=== PATIENT | male | born 1950 | race Caucasian/White ===

== ENCOUNTER 2016-05-02 20:19 | Emergency (ER) | payer MEDICARE, MEDICAID ==
[~2016-05-02] VITALS: Ht 175.3 cm; Wt 77.1 kg
[~2016-05-02 20:19] MED LIST: ACETAMINOPHEN325 M1 ORAL; COUMADIN7.5 MG ORAL; HEPARIN SO5000 UNIT2 SUBQ; NKM; Vancomycin Hcl MISC
[2016-05-02 20:42] VITALS: BP 124/75
--- NOTE | 2016-05-02 20:50 | Emergency Room Report ---
History of Present Illness General Chief Complaint: Generalized Weakness Source: Patient Present Illness HPI The patient came to be evaluated for dizziness. He states he has felt dizzy for 2 days. He was seen at [facility] yesterday but wasn't complaining about dizziness. They viv blood and didn't given any other treatment. No FORMAN, change in vision, NVD. He doesn't know what diagnosis they gave him. He is also complaining of swelling in both of his legs. This has been for several weeks. He denies fever or redness. No pain. He denies h/o CHF or cirrhosis. No h/o DVT. No calf tenderness. No hemoptysis or chest pain. He walks with a cane because of arthritis in his left leg. No dysuria, change in bowels. No depression. Allergies: Coded Allergies: No Known Allergies (Unverified , 03/08/14) Patient History Past Medical History: see triage record, other - arthritis Social History: Denies: alcohol use, drug use, smoking Social History Narrative homeless - not state where he lives or how he makes ends meet Reviewed Nursing Documentation: PMH: Agreed, PSxH: Agreed Review of Systems All Other Systems: negative except mentioned in HPI Physical Exam Vital Signs Date Time Temp Pulse Resp B/P Pulse Ox O2 Delivery O2 Flow Rate FiO2 05/02/16 20:32 98.6 94 16 140/73 97 Room Air General Appearance: well appearing, no apparent distress, other - dishevelled Head: normocephalic, atraumatic Eyes: bilateral eye PERRL, bilateral eye normal inspection ENT: hearing grossly normal, normal voice, moist mucus membranes Neck: full range of motion, supple Respiratory: no respiratory distress, speaking full sentences Cardiovascular #1: regular rate, rhythm, edema Gastrointestinal: normal inspection, normal bowel sounds, non tender, no mass, no organomegaly Musculoskeletal: gait/station normal - with cane, normal range of motion, no calf tenderness Neurologic: alert, oriented x3, motor strength/tone normal, DTRs symmetric, sensory intact Psychiatric: mood/affect normal Skin: no rash Medical Decision Making Diagnostic Impression: Primary Impression: Dizziness Additional Impression: Pedal edema ER Course Patient with dizziness. Denies weakness. DDx: vertigo, orthostatic issues, labyrinthitis, electrolyte abnormality, pasterior fossa stroke amongst others. Work up with labs, EKG, CXR, CT head. Treatment with IV hydration, zofran, benadryl. Will also give lasix for edema. No Tao's or evidence of new DVT. Labs sig for normal WBC and lytes. Elevated CK and some abnormal LFTs. Patient improved with treatment. Stable for outpatient observation and treatment. Laboratory Tests Test 05/02/16 21:25 05/02/16 22:45 White Blood Count 3.0 K/UL (4.8-10.8) L Red Blood Count 4.46 M/UL (4.70-6.10) L Hemoglobin 14.4 G/DL (14.2-18.0) Hematocrit 41.8 % (42.0-52.0) L Mean Corpuscular Volume 94 FL (80-99) Mean Corpuscular Hemoglobin 32.2 PG (27.0-31.0) H Mean Corpuscular Hemoglobin Concent 34.4 G/DL (32.0-36.0) Red Cell Distribution Width 12.3 % (11.6-14.8) Platelet Count 83 K/UL (150-450) L Mean Platelet Volume 9.3 FL (6.5-10.1) Neutrophils (%) (Auto) 73.9 % (45.0-75.0) Lymphocytes (%) (Auto) 11.7 % (20.0-45.0) L Monocytes (%) (Auto) 12.7 % (1.0-10.0) H Eosinophils (%) (Auto) 0.5 % (0.0-3.0) Basophils (%) (Auto) 1.1 % (0.0-2.0) Prothrombin Time 11.3 SEC (9.30-11.50) Prothrombin Time INR 1.1 (0.9-1.1) Sodium Level 135 mEQ/L (135-145) Potassium Level 3.5 mEQ/L (3.4-4.9) Chloride Level 96 mEQ/L (98-107) L Carbon Dioxide Level 23 mEQ/L (20-30) Anion Gap 16 (5-15) H Blood Urea Nitrogen 16 mg/dL (7-23) Creatinine 1.2 mg/dL (0.7-1.2) Estimate Glomerular Filtration Rate > 60 mL/min (>60) Glucose Level 86 mg/dL (74-106) Calcium Level 8.4 mg/dL (8.6-10.2) L Total Bilirubin 1.3 mg/dL (0.0-1.2) H Direct Bilirubin 0.4 mg/dL (0.1-0.3) H Aspartate Amino Transferase (AST) 68 U/L (5-40) H Alanine Aminotransferase (ALT) 35 U/L (3-41) Alkaline Phosphatase 104 U/L (40-129) Total Creatine Kinase 1302 U/L (38-174) H Troponin I < 0.30 ng/mL (<=0.30) Pro-B-Type Natriuretic Peptide 558 pg/mL (0-125) H Total Protein 6.8 g/dL (6.6-8.7) Albumin 3.9 g/dL (3.5-5.2) Globulin 2.9 g/dL Albumin/Globulin Ratio 1.3 (1.0-2.7) Urine Opiates Screen Negative (NEGATIVE) Urine Barbiturates Screen Negative (NEGATIVE) Phencyclidine (PCP) Screen Negative (NEGATIVE) Urine Amphetamines Screen Negative (NEGATIVE) Urine Benzodiazepines Screen Negative (NEGATIVE) Urine Cocaine Screen Negative (NEGATIVE) Urine Marijuana (THC) Screen Negative (NEGATIVE) EKG Diagnostic Results Rate: normal Rhythm: NSR ST Segments: no acute changes Rhythm Strip Diag. Results EP Interpretation: yes Rhythm: NSR, no PVC's, no ectopy Chest X-Ray Diagnostic Results EP Interpretation: Yes Number of Views: 1 CT/MRI/US Diagnostic Results CT/MRI/US Diagnostic Results : Imaging Test Ordered: head Impression Impression: No acute intracranial bleed, mass effect or edema. Mild atrophy of the brain. 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 Status: improved Disposition: HOME, SELF-CARE Condition: Improved Scripts Ondansetron Odt* (ZOFRAN ODT*) 4 Mg Tab.rapdis 4 MG ORAL Q8H Y for Nausea & Vomiting, #6 TAB 0 Refills Prov: Jovanny West M.D. 05/02/16 Meclizine Hcl* (MECLIZINE*) 25 Mg Tablet 25 MG ORAL THREE TIMES A DAY Y for for dizziness, #12 TAB Prov: Jovanny West M.D. 05/02/16 Jovanny West M.D. May 02, 2016 20:50
[2016-05-02] MEDS ORDERED: DiphenhydrAMINE 50mg/ml Inj IVP ONE (21:15)
[2016-05-02 21:45] LABS: MEAN CORPUSCULAR HEMOGLOBIN 32.2 PG (27.0-31.0); MEAN CORPUSCULAR HGB CONC 34.4 G/DL (32.0-36.0); MEAN CORPUSCULAR VOLUME 94 FL (80-99); MEAN PLATELET VOLUME 9.3 FL (6.5-10.1); PLATELET COUNT 83 K/UL (150-450); RED BLOOD COUNT 4.46 M/UL (4.70-6.10); RED CELL DISTRIBUTION WIDTH 12.3 % (11.6-14.8)
[2016-05-02 21:46] LABS: BASOPHILS % (AUTO) 1.1 % (0.0-2.0); EOSINOPHILS % (AUTO) 0.5 % (0.0-3.0); LYMPHOCYTES % (AUTO) 11.7 % (20.0-45.0); MONOCYTES % (AUTO) 12.7 % (1.0-10.0); NEUTROPHILS % (AUTO) 73.9 % (45.0-75.0)
[2016-05-02 21:56] LABS: INR 1.1 (0.9-1.1); PROTHROMBIN TIME 11.3 SEC (9.30-11.50)
[2016-05-02 22:19] VITALS: BP 122/71
[2016-05-02 22:24] LABS: ALANINE AMINOTRANSFERASE 35 U/L (3-41); ALBUMIN/GLOBULIN RATIO 1.3 (1.0-2.7); ANION GAP 16 (5-15); ASPARTATE AMINO TRANSFERASE 68 U/L (5-40); CALCIUM 8.4 mg/dL (8.6-10.2); CARBON DIOXIDE 23 mEQ/L (20-30); CHLORIDE 96 mEQ/L (98-107); CREATININE 1.2 mg/dL (0.7-1.2); GLOMERULAR FILTRATION RATE > 60 mL/min (>60); HEMOLYSIS 8; POTASSIUM 3.5 mEQ/L (3.4-4.9); SODIUM 135 mEQ/L (135-145); TOTAL PROTEIN 6.8 g/dL (6.6-8.7); TROPONIN I < 0.30 ng/mL (<=0.30)
[2016-05-02 22:44] LABS: BILIRUBIN,DIRECT 0.4 mg/dL (0.1-0.3)
[2016-05-02] MEDS ORDERED: ZOFRAN ODT4 MG ORAL (23:12)
[2016-05-02] MEDS ORDERED: MECLIZINE HCL25 MG ORAL (23:12)
[2016-05-02 23:20] VITALS: BP 109/68
[2016-05-03] VITALS: BP 109/68
--- NOTE | 2016-05-03 11:35 | Diagnostic Imaging Report ---
Indication: Chest Pain Comparison: None A single view chest radiograph was obtained. Findings: No definite infiltrate or pulmonary vascular congestion identified. Pacemaker noted on the right. The heart is enlarged. The aorta is mildly enlarged consistent with atherosclerotic vascular disease. The bones are osteopenic. Impression: No acute disease
--- NOTE | 2016-05-06 09:39 | Diagnostic Imaging Report ---
Indication: Dizziness Technique: Contiguous 5 mm thick transaxial imaging of the head obtained in a Siemens Sensation [address] scanner. Soft tissue and bone windows generated. Total Dose length Product (DLP): [address] Dose Index Volume (CTDIvol): 70.38 mGy Comparison: none Findings: There is mild prominence of the ventricles, basal cisterns, and cerebral sulci consistent with atrophy. Mild, nonspecific, white matter hypoattenuation is noted throughout the brain consistent with chronic small vessel disease. Small cystic punctate focus noted in the right caudate. There is no midline shift, edema, acute hemorrhage, mass effect, or abnormal extra-axial fluid collections. Bones and extra osseous soft tissues are unremarkable. Impression: No acute intracranial bleed, mass effect or edema. Mild atrophy of the brain. 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 Dr. Price has communicated the preliminary results to the Emergency Department. There are no significant discrepancies. The CT scanner at [facility] is accredited by the [employer] and the scans are performed using protocols designed to limit radiation exposure to as low as reasonably achievable to attain images of sufficient resolution adequate for diagnostic evaluation.
--- NOTE | 2016-06-09 03:14 | Cardiology Report ---
APPROVED REPORT EKG Measurement Heart [id number] Atrial pacing Moderate voltage criteria for LVH, may be normal variant Abnormal ECG
== END 2016-05-03 00:01 | disposition home or self-care (01) ==
LOC: EMR 21:41
DX: R42 Dizziness and giddiness (principal); R60.0 Localized edema
CPT/HCPCS: 36415; 70450; 71010; 80053; 80300; 82248; 82550; 83880; 84484; 85025; 85610; 93005; 96374; 96375; 99284; J1200; J1940; J2405

== ENCOUNTER 2016-05-29 16:18 | Inpatient (IN) | payer MEDICARE, MEDICAID ==
[~2016-05-29] VITALS: Ht 175.3 cm; Wt 74.8 kg
[~2016-05-29 16:18] MED LIST changes: +MECLIZINE HCL25 MG ORAL; +ZOFRAN ODT4 MG ORAL
[2016-05-29] MEDS ORDERED: NKM (16:33)
[2016-05-29] MEDS ORDERED: Vancomycin 1 GM in NS 275 ML IV ONE (17:00)
[2016-05-29] MEDS ORDERED: NS 1000ml 2,200 ML IVLG ONE (17:00)
[2016-05-29 17:05] VITALS: BP 126/77
[2016-05-29 18:05] LABS: BASOPHILS % (AUTO) 1.2 % (0.0-2.0); LYMPHOCYTES % (AUTO) 29.1 % (20.0-45.0); MEAN CORPUSCULAR HEMOGLOBIN 30.8 PG (27.0-31.0); MEAN CORPUSCULAR HGB CONC 32.9 G/DL (32.0-36.0); MEAN CORPUSCULAR VOLUME 94 FL (80-99); MEAN PLATELET VOLUME 8.3 FL (6.5-10.1); MONOCYTES % (AUTO) 9.4 % (1.0-10.0); NEUTROPHILS % (AUTO) 60.2 % (45.0-75.0); PLATELET COUNT 160 K/UL (150-450); RED BLOOD COUNT 4.43 M/UL (4.70-6.10); RED CELL DISTRIBUTION WIDTH 12.3 % (11.6-14.8); WHITE BLOOD COUNT 5.4 K/UL (4.8-10.8)
[2016-05-29] MEDS ORDERED: Vancomycin 1gm inj IVPB ONE (18:07)
[2016-05-29 18:24] LABS: ALANINE AMINOTRANSFERASE 20 U/L (3-41); ANION GAP 14 (5-15); ASPARTATE AMINO TRANSFERASE 30 U/L (5-40); CALCIUM 8.6 mg/dL (8.6-10.2); CARBON DIOXIDE 25 mEQ/L (20-30); CHLORIDE 104 mEQ/L (98-107); CREATININE 1.1 mg/dL (0.7-1.2); GLOMERULAR FILTRATION RATE > 60 mL/min (>60); HEMOLYSIS 5; POTASSIUM 3.6 mEQ/L (3.4-4.9); SODIUM 143 mEQ/L (135-145); TOTAL PROTEIN 6.7 g/dL (6.6-8.7)
[2016-05-29 18:25] VITALS: BP 114/69
[2016-05-29 18:34] LABS: CKMB 7.5 ng/mL (< 6.7)
[2016-05-29 18:47] LABS: APPEARANCE,URINE CLEAR; KETONES,URINE NEGATIVE (NEGATIVE); LEUKOCYTE ESTERASE ,URINE NEGATIVE (NEGATIVE); NITRITE,URINE NEGATIVE (NEGATIVE); PH,URINE 6 (4.5-8.0); PROTEIN,URINE NEGATIVE (NEGATIVE); UROBILINOGEN,URINE NORMAL MG/DL (0.0-1.0)
[2016-05-29 18:54] LABS: BILIRUBIN,DIRECT 0.5 mg/dL (0.1-0.3)
--- NOTE | 2016-05-29 19:17 | Emergency Room Report ---
History of Present Illness General Chief Complaint: Edema Source: Patient Present Illness HPI She states that he has had bilateral lower she may the swelling and redness that is rapidly progressed over the past week. He states that he has had similar symptoms in the past and had to take antibiotics. He's also had a history of blood clots in his legs. He denies fever or chills. He denies nausea or vomiting. Denies chest pain or shortness of breath. He has no other complaints. Allergies: Coded Allergies: No Known Allergies (Unverified , 03/08/14) Patient History Past Medical History: see triage record, old chart reviewed, other - DVT Social History: Reports: smoking Reviewed Nursing Documentation: PMH: Agreed, PSxH: Agreed Review of Systems All Other Systems: negative except mentioned in HPI Physical Exam Vital Signs Date Time Temp Pulse Resp B/P Pulse Ox O2 Delivery O2 Flow Rate FiO2 05/29/16 16:27 97.7 96 16 137/94 97 Room Air Sp02 EP Interpretation: reviewed, normal General Appearance: no apparent distress, alert, GCS 15, non-toxic Head: normocephalic, atraumatic Eyes: bilateral eye PERRL, bilateral eye normal inspection ENT: hearing grossly normal, normal pharynx, no angioedema, normal voice, other - Poor dentition Neck: full range of motion, supple/symm/no masses Respiratory: chest non-tender, lungs clear, normal breath sounds, speaking full sentences Cardiovascular #1: regular rate, rhythm, no edema Gastrointestinal: normal bowel sounds, non tender, soft, non-distended, no guarding, no rebound Rectal: deferred Musculoskeletal: back normal, normal range of motion, swelling - BLE edema and erythema/warmth to mid [place]gara. Neurologic: alert, oriented x3, responsive, motor strength/tone normal, sensory intact, speech normal Psychiatric: judgement/insight normal, memory normal, mood/affect normal, no suicidal/homicidal ideation Skin: well hydrated, other - See MSK exam Medical Decision Making Diagnostic Impression: Primary Impression: Cellulitis ER Course Patient has bilateral lower extremity cellulitis. Patient is well-appearing without systemic symptoms. Laboratory workup is noncontributory. Bilateral lower extremity ultrasound shows no evidence of DVT. The patient was given IV antibiotics. This patient has a severe bilateral lower extremity cellulitis with severe edema. Patient will need to be admitted for IV antibiotics and further monitoring. Labs Test 2/14/17 17:19 05/29/16 18:05 White Blood Count 5.4 K/UL (4.8-10.8) Red Blood Count 4.43 M/UL (4.70-6.10) Hemoglobin 13.6 G/DL (14.2-18.0) Hematocrit 41.4 % (42.0-52.0) Mean Corpuscular Volume 94 FL (80-99) Mean Corpuscular Hemoglobin 30.8 PG (27.0-31.0) Mean Corpuscular Hemoglobin Concent 32.9 G/DL (32.0-36.0) Red Cell Distribution Width 12.3 % (11.6-14.8) Platelet Count 160 K/UL (150-450) Mean Platelet Volume 8.3 FL (6.5-10.1) Neutrophils (%) (Auto) 60.2 % (45.0-75.0) Lymphocytes (%) (Auto) 29.1 % (20.0-45.0) Monocytes (%) (Auto) 9.4 % (1.0-10.0) Eosinophils (%) (Auto) 0.0 % (0.0-3.0) Basophils (%) (Auto) 1.2 % (0.0-2.0) Sodium Level 143 mEQ/L (135-145) Potassium Level 3.6 mEQ/L (3.4-4.9) Chloride Level 104 mEQ/L (98-107) Carbon Dioxide Level 25 mEQ/L (20-30) Anion Gap 14 (5-15) Blood Urea Nitrogen 15 mg/dL (7-23) Creatinine 1.1 mg/dL (0.7-1.2) Estimat Glomerular Filtration Rate > 60 mL/min (>60) Glucose Level 95 mg/dL (74-106) Lactic Acid Level 1.00 mmol/L (0.66-2.22) Calcium Level 8.6 mg/dL (8.6-10.2) Total Bilirubin 1.4 mg/dL (0.0-1.2) Aspartate Amino Transf (AST/SGOT) 30 U/L (5-40) Alanine Aminotransferase (ALT/SGPT) 20 U/L (3-41) Alkaline Phosphatase 112 U/L (40-129) Total Creatine Kinase 297 U/L (38-174) Creatine Kinase MB 7.5 ng/mL (< 6.7) Creatine Kinase MB Relative Index 2.5 Total Protein 6.7 g/dL (6.6-8.7) Albumin 3.5 g/dL (3.5-5.2) Globulin 3.2 g/dL Albumin/Globulin Ratio 1.0 (1.0-2.7) Urine Color Yellow Urine Appearance Clear Urine pH 6 (4.5-8.0) Urine Specific [place] 1.015 (1.005-1.035) Urine Protein Negative (NEGATIVE) Urine Glucose (UA) Negative (NEGATIVE) Urine Ketones Negative (NEGATIVE) Urine Occult Blood 3+ (NEGATIVE) Urine Nitrite Negative (NEGATIVE) Urine Bilirubin Negative (NEGATIVE) Urine Urobilinogen Normal MG/DL (0.0-1.0) Urine Leukocyte Esterase Negative (NEGATIVE) EKG Diagnostic Results Rate: normal Rhythm: NSR ST Segments: no acute changes Other Impression 1st degree AV block Rhythm Strip Diag. Results EP Interpretation: yes Rate: 70's Rhythm: NSR, no PVC's, no ectopy CT/MRI/US Diagnostic Results CT/MRI/US Diagnostic Results : Imaging Test Ordered: BLE US Impression No e/o DVT Last Vital Signs Date Time Temp Pulse Resp B/P Pulse Ox O2 Delivery O2 Flow Rate FiO2 05/29/16 18:25 69 12 114/69 94 Room Air 05/29/16 16:27 97.7 Disposition: ADMITTED INPATIENT Condition: Stable Referrals: SCOTT GUAMAN (PCP) JOSHUA BENAVIDEZ D.O. May 29, 2016 19:17
[2016-05-29 20:05] LABS: BACTERIA,URINE OCCASIONAL /HPF; WBC,URINE 0-2 /HPF (0 - 0)
[2016-05-29 20:30] VITALS: BP 125/87
[2016-05-29 21:13] VITALS: BP 125/87
[2016-05-29] MEDS ORDERED: Mylanta II UD 30ml ORAL PRN (21:15)
[2016-05-29] MEDS ORDERED: Miralax 17gm pkt ORAL PRN (21:15)
[2016-05-29] MEDS ORDERED: LORazepam Inj 2mg/ml 1ml IV PRN (21:15)
[2016-05-29] MEDS ORDERED: Morphine Sulfate 2mg/ml Inj IVP PRN (21:15)
[2016-05-29] MEDS ORDERED: Zolpidem 5mg tab ORAL PRN (21:15)
[2016-05-29] MEDS: Cefepime HCl 1 GM in D5W 55 ML IV SCH (22:49)
[2016-05-29] MEDS: Heparin 5000 units/ml inj SUBQ SCH (22:50)
[2016-05-30] VITALS: BP 139/86
[2016-05-30] MEDS ORDERED: Vancomycin 1gm inj IVPB ONE (01:25)
[2016-05-30 04:00] VITALS: BP 144/82
[2016-05-30] MEDS: Cefepime HCl 1 GM in D5W 55 ML IV SCH ×3 (05:05→21:28)
[2016-05-30] MEDS: Vancomycin 1gm in D5W 275ml IVPB SCH ×2 (05:41→18:24)
[2016-05-30 08:18] VITALS: BP 119/79
[2016-05-30] MEDS: Heparin 5000 units/ml inj SUBQ SCH ×2 (09:41→21:00)
[2016-05-30 11:06] LABS: BASOPHILS % (AUTO) 1.1 % (0.0-2.0); EOSINOPHILS % (AUTO) 0.2 % (0.0-3.0); MEAN CORPUSCULAR HEMOGLOBIN 31.3 PG (27.0-31.0); MEAN CORPUSCULAR HGB CONC 34.3 G/DL (32.0-36.0); MEAN CORPUSCULAR VOLUME 91 FL (80-99); MEAN PLATELET VOLUME 8.4 FL (6.5-10.1); MONOCYTES % (AUTO) 9.7 % (1.0-10.0); NEUTROPHILS % (AUTO) 58.1 % (45.0-75.0); PLATELET COUNT 135 K/UL (150-450); RED BLOOD COUNT 4.45 M/UL (4.70-6.10); RED CELL DISTRIBUTION WIDTH 12.2 % (11.6-14.8); WHITE BLOOD COUNT 3.9 K/UL (4.8-10.8)
[2016-05-30 11:20] LABS: HEMOGLOBIN A1C 5.1 % (< 6.0)
[2016-05-30 11:26] LABS: ALANINE AMINOTRANSFERASE 16 U/L (3-41); ALBUMIN/GLOBULIN RATIO 1.4 (1.0-2.7); ANION GAP 14 (5-15); ASPARTATE AMINO TRANSFERASE 26 U/L (5-40); CALCIUM 8.4 mg/dL (8.6-10.2); CARBON DIOXIDE 24 mEQ/L (20-30); CHLORIDE 102 mEQ/L (98-107); CHOLESTEROL 182 mg/dL (< 200); CHOLESTEROL/HDL RATIO 5.4 (3.3-4.4); GLOMERULAR FILTRATION RATE > 60 mL/min (>60); HEMOLYSIS 5; LDL CHOLESTEROL (CALC.) 122 mg/dL (60-99); POTASSIUM 3.5 mEQ/L (3.4-4.9); SODIUM 140 mEQ/L (135-145); TOTAL PROTEIN 5.9 g/dL (6.6-8.7)
[2016-05-30 11:47] LABS: BILIRUBIN,DIRECT 0.5 mg/dL (0.1-0.3)
[2016-05-30 11:52] VITALS: BP 113/69
[2016-05-30 16:00] VITALS: BP 131/84
--- NOTE | 2016-05-30 17:32 | Consultation ---
Consult Note Consult Note ID CONSULT: Justin# [id number] Assessment/Plan ASSESSMENT: 66 y/o male with: // BLE cellulitis - doppler(-) DVT // Afebrile without leukocytosis // Isolated total bilirubin elevation // NKDA // Full Code PLAN: - continue empiric IV vancomycin, cefepime d# 2 / 10, transition to PO once clinically improved - f/u cultures - monitor CBC, temperatures - monitor BMP - BLE elevation, compression Thanks! Will follow BRIAN CLARK May 30, 2016 17:32
--- NOTE | 2016-05-30 17:43 | History and Physical ---
History of Present Illness General Date patient seen: May 30, 2016 Reason for Hospitalization: Edema Present Illness HPI 66 year old male with hx of DVT and cellulitis of lower extremities, presented to [facility] with CC off bilateral lower leg swelling and redness that is rapidly progressed over the past week. He states that he has had similar symptoms in the past and had to take antibiotics. He denies fever or chills, nausea or vomiting, chest pain or shortness of breath. Allergies: Coded Allergies: No Known Allergies (Unverified , 03/08/14) Medication History Scheduled Heparin Sod (Porcine) (Heparin Sodium*), 5,000 UNITS SUBQ EVERY 12 HOURS No Known Medications* (NKM - No Known Medications*), 0 ., (Reported) Scheduled PRN Acetaminophen* (Acetaminophen*), 650 MG ORAL Q4H PRN for Mild Pain (Pain Scale 1 -3) Meclizine Hcl* (Meclizine*), 25 MG ORAL THREE TIMES A DAY PRN for for dizziness Ondansetron Odt* (Zofran Odt*), 4 MG ORAL Q8H PRN for Nausea & Vomiting [Vancomycin Hcl], 1 EA MISC DAILY PRN for Per rx protocol Patient History Healthcare decision maker Resuscitation status Full Code Advanced Directive on File Past Medical/Surgical History Past Medical/Surgical History: (1) Cellulitis (2) Pedal edema Review of Systems Skin: Reports: dryness All Other Systems: negative except mentioned in HPI Physical Exam Lines, tubes and drains: peripheral, central line HEENT: normocephalic, atraumatic Neck: non-tender, normal alignment Respiratory/Chest: chest wall non-tender, lungs clear Cardiovascular/Chest: normal peripheral pulses, normal rate Abdomen: normal bowel sounds, non tender Genitourinary/Rectal: normal genital exam, normal rectal exam Last 24 Hour Vital Signs Date Time Temp Pulse Resp B/P Pulse Ox O2 Delivery O2 Flow Rate FiO2 05/30/16 11:52 97.5 70 20 113/69 95 Room Air 05/30/16 08:18 97.3 70 19 119/79 95 Room Air 05/30/16 04:00 98.0 20 144/82 96 Room Air 05/30/16 00:00 97.9 81 16 139/86 95 Room Air 05/29/16 21:13 97.5 80 20 125/87 97 Room Air 05/29/16 20:30 97.5 80 20 125/87 97 Room Air 05/29/16 20:15 63 15 121/73 94 Room Air 05/29/16 18:25 69 12 114/69 94 Room Air Intake and Output 05/29/16 05/30/16 19:00 07:00 Intake Total 2000 ml 628.708 ml Balance 2000 ml 628.708 ml Intake Oral 60 ml IV Total 2000 ml 568.708 ml # Voids 1 3 # Bowel Movements 1 Laboratory Tests Test 05/29/16 18:05 05/30/16 09:30 Urine Color Yellow Urine Appearance Clear Urine pH 6 (4.5-8.0) Urine Specific [place] 1.015 (1.005-1.035) Urine Protein Negative (NEGATIVE) Urine Glucose (UA) Negative (NEGATIVE) Urine Ketones Negative (NEGATIVE) Urine Occult Blood 3+ (NEGATIVE) H Urine Nitrite Negative (NEGATIVE) Urine Bilirubin Negative (NEGATIVE) Urine Urobilinogen Normal MG/DL (0.0-1.0) Urine Leukocyte Esterase Negative (NEGATIVE) Urine RBC 10-15 /HPF (0 - 0) H Urine WBC 0-2 /HPF (0 - 0) Urine Squamous Epithelial Cells None /LPF (NONE/OCC) Urine Bacteria Occasional /HPF (NONE) White Blood Count 3.9 K/UL (4.8-10.8) L Red Blood Count 4.45 M/UL (4.70-6.10) L Hemoglobin 13.9 G/DL (14.2-18.0) L Hematocrit 40.5 % (42.0-52.0) L Mean Corpuscular Volume 91 FL (80-99) Mean Corpuscular Hemoglobin 31.3 PG (27.0-31.0) H Mean Corpuscular Hemoglobin Concent 34.3 G/DL (32.0-36.0) Red Cell Distribution Width 12.2 % (11.6-14.8) Platelet Count 135 K/UL (150-450) L Mean Platelet Volume 8.4 FL (6.5-10.1) Neutrophils (%) (Auto) 58.1 % (45.0-75.0) Lymphocytes (%) (Auto) 31.0 % (20.0-45.0) Monocytes (%) (Auto) 9.7 % (1.0-10.0) Eosinophils (%) (Auto) 0.2 % (0.0-3.0) Basophils (%) (Auto) 1.1 % (0.0-2.0) Sodium Level 140 mEQ/L (135-145) Potassium Level 3.5 mEQ/L (3.4-4.9) Chloride Level 102 mEQ/L (98-107) Carbon Dioxide Level 24 mEQ/L (20-30) Anion Gap 14 (5-15) Blood Urea Nitrogen 13 mg/dL (7-23) Creatinine 1.0 mg/dL (0.7-1.2) Estimat Glomerular Filtration Rate > 60 mL/min (>60) Glucose Level 93 mg/dL (74-106) Hemoglobin A1c 5.1 % (< 6.0) Calcium Level 8.4 mg/dL (8.6-10.2) L Total Bilirubin 1.5 mg/dL (0.0-1.2) H Direct Bilirubin 0.5 mg/dL (0.1-0.3) H Aspartate Amino Transf (AST/SGOT) 26 U/L (5-40) Alanine Aminotransferase (ALT/SGPT) 16 U/L (3-41) Alkaline Phosphatase 106 U/L (40-129) Total Protein 5.9 g/dL (6.6-8.7) L Albumin 3.5 g/dL (3.5-5.2) Globulin 2.4 g/dL Albumin/Globulin Ratio 1.4 (1.0-2.7) Triglycerides Level 129 mg/dL (< 150) Cholesterol Level 182 mg/dL (< 200) LDL Cholesterol 122 mg/dL (60-99) H HDL Cholesterol 34 mg/dL (> 60) Cholesterol/HDL Ratio 5.4 (3.3-4.4) H Thyroid Stimulating Hormone (TSH) 1.850 uIU/mL (0.300-4.500) Height (Feet): 5 Height (Inches): 9.00 Weight (Pounds): 165 Medications Current Medications Medications (Trade) Dose Ordered Sig/Berna Route PRN Reason Start Time Stop Time Status Last Admin Dose Admin Acetaminophen (Tylenol) 650 mg Q4H PRN ORAL fever 05/29/16 21:15 06/28/16 21:14 Al Hydroxide/Mg Hydroxide (Mylanta II) 30 ml Q6H PRN ORAL dyspepsia 05/29/16 21:15 06/28/16 21:14 Cefepime HCl 1 gm/ Dextrose 55 ml @ 110 mls/hr EVERY 8 HOURS IV 05/29/16 23:00 06/05/16 22:59 05/30/16 13:36 Dextrose (Dextrose 50%) STAT PRN IV Hypoglycemia 05/29/16 21:15 06/28/16 21:14 Heparin Sodium (Porcine) (Heparin 5000 units/ml) 5,000 units EVERY 12 HOURS SUBQ 05/29/16 22:00 06/28/16 21:59 05/30/16 09:41 Lorazepam (Ativan 2mg/ml 1ml) 0.5 mg Q4H PRN IV For Anxiety 05/29/16 21:15 06/05/16 21:14 Morphine Sulfate (Morphine Sulfate) 1 mg Q4H PRN IVP For Pain 05/29/16 21:15 06/05/16 21:14 Ondansetron HCl (Zofran) 4 mg Q6H PRN IVP Nausea & Vomiting 05/29/16 21:15 06/28/16 21:14 Polyethylene Glycol (Miralax) 17 gm HSPRN PRN ORAL Constipation 05/29/16 21:15 06/28/16 21:14 Vancomycin HCl 1 ea 1 ea DAILY PRN MISC Per rx protocol 05/29/16 21:15 06/28/16 21:14 Vancomycin HCl/ Dextrose (Vancomycin/D5W) 275 ml @ 183.708 mls/hr Q12H IVPB 05/30/16 06:00 06/04/16 05:59 05/30/16 05:41 Zolpidem Tartrate (Ambien) 5 mg HSPRN PRN ORAL Insomnia 05/29/16 21:15 06/28/16 21:14 Assessment/Plan Problem List: (1) Cellulitis ICD Codes: L03.90 - Cellulitis, unspecified SNOMED: 002932701 (2) Pedal edema ICD Codes: R60.0 - Localized edema SNOMED: 990003940 Assessment/Plan IV antibiotics blood cultures venous doppler of legs ID consult ESTEE RODRIGUEZ May 30, 2016 17:43
[2016-05-30 20:00] VITALS: BP 136/88
--- NOTE | 2016-05-30 20:59 | Consultation ---
DATE OF CONSULTATION: 05/30/2016 INFECTIOUS DISEASES CONSULTATION REFERRING PHYSICIAN: Criselda Morejon M.D. REASON FOR CONSULTATION: Cellulitis. HISTORY OF PRESENT ILLNESS: This is a 58-year-old male admitted on 05/29/2016 with bilateral lower extremity edema, erythema and warmth. He is afebrile without leukocytosis. He has evidence of cellulitis. His Dopplers are negative for DVT. Blood cultures are pending. He has been started on empiric IV vancomycin and cefepime. ID now consulted to assist in management. PAST MEDICAL HISTORY: 1. History of DVT. 2. History of lacunar infarct of the caudate. PAST SURGICAL HISTORY: None. ALLERGIES: No known drug allergies. MEDICATIONS: 1. Vancomycin day #2. 2. Cefepime day #2. 3. Subcutaneous heparin. FAMILY HISTORY: Noncontributory. SOCIAL HISTORY: No active tobacco, alcohol, or illicit drug abuse. REVIEW OF SYSTEMS: As per history of present illness. Ten systems reviewed. All pertinent positives and negatives noted. PHYSICAL EXAMINATION: VITAL SIGNS: Maximum temperature 98 degrees, blood pressure 113/69, heart rate in the 70s, respiratory rate 20, and saturating 95% on room air. GENERAL: No apparent distress. Nontoxic appearing. CARDIOVASCULAR: Regular rate and rhythm. No murmurs. PULMONARY: Clear to auscultation bilaterally. ABDOMINAL: Bowel sounds present. Soft, nondistended, and nontender. EXTREMITIES: Bilateral lower extremity erythema, edema, and warmth. LABORATORY DATA: White blood cell count 8.9, hemoglobin 13.9, and platelets 135,000. Sodium 140, potassium 3.5, chloride 102, bicarbonate 24, BUN 13, and creatinine 1. Lactic acid is 1. AST 26, ALT 16, and alkaline phosphatase 106. Total bilirubin is 1.5. Albumin is 3.5. Creatine kinase is 297. Urinalysis negative. MICROBIOLOGY: On 05/29/2016, blood culture pending. IMAGING: On 05/30/2016, bilateral lower extremity Doppler ultrasound negative for DVT. ASSESSMENT: 1. Bilateral lower extremity cellulitis. A Doppler ultrasound is negative for deep vein thrombosis. 2. Afebrile without leukocytosis. 3. Isolated total bilirubin elevation. 4. No known drug allergies. 5. Full Code. PLAN: 1. Continue empiric IV vancomycin and cefepime day #2 of 7 to 10. 2. Transition to oral alternative once clinically improved. 3. Follow up cultures. 4. Monitor CBC and temperatures. 5. Monitor BMP. 6. Bilateral lower extremity elevation and compression. Thank you. We will follow. Kishore Em M.D. DR: CHRISTIAN JOB#: [id number] CC: Criselda Morejon M.D.; Fax#: [phone] Nieves M.D; Fax#: [phone]
[2016-05-31] VITALS: BP_SYST 131; BP_DIAS 89; BP_DIAS 97
[2016-05-31 04:00] VITALS: BP 92/53
[2016-05-31] MEDS: Cefepime HCl 1 GM in D5W 55 ML IV SCH ×3 (05:25→22:09)
[2016-05-31] MEDS: Vancomycin 1gm in D5W 275ml IVPB SCH ×2 (06:05→18:14)
[2016-05-31 07:53] VITALS: BP 109/78
[2016-05-31] MEDS: Heparin 5000 units/ml inj SUBQ SCH ×2 (09:00→21:00)
[2016-05-31 11:26] VITALS: BP 123/86
--- NOTE | 2016-05-31 15:33 | Infectious Diseases Prog Note ---
Assessment/Plan Assessment/Plan ASSESSMENT: 66 y/o male with: // BLE cellulitis - improved - a/vdoppler(-) DVT, PAD - failed PO ABX ( however did not take regularly ) // Afebrile without leukocytosis // Isolated total bilirubin elevation // NKDA // Full Code PLAN: - continue empiric IV vancomycin, cefepime d# / , may be able to transition to PO keflex as early as tomorrow - f/u cultures - monitor CBC, temperatures - monitor BMP - BLE elevation, compression Subjective Allergies: Coded Allergies: No Known Allergies (Unverified , 03/08/14) Subjective remains afebrile. no new complaint Objective Vital Signs Last 24 Hour Vital Signs Date Time Temp Pulse Resp B/P Pulse Ox O2 Delivery O2 Flow Rate FiO2 05/31/16 11:26 97.5 84 19 123/86 96 Room Air 05/31/16 07:53 97.6 85 19 109/78 96 Room Air 05/31/16 04:00 96.8 80 20 92/53 96 Room Air 05/31/16 00:00 97.9 86 20 131/89 97 Room Air 05/30/16 20:00 97.9 82 16 136/88 99 Room Air 05/30/16 16:00 96.9 72 17 131/84 98 Room Air Height (Feet): 5 Height (Inches): 9.00 Weight (Pounds): 165 General Appearance: no acute distress Respiratory/Chest: no respiratory distress Cardiovascular: normal rate, regular rhythm Abdomen: normal bowel sounds, soft, non tender, non distended Extremities: other - BLE erythema, edema, warmth Microbiology Date/Time Source Procedure Growth Status 05/29/16 17:19 Blood Blood Culture - Preliminary NO GROWTH AFTER 24 HOURS Resulted 05/29/16 17:09 Blood Blood Culture - Preliminary NO GROWTH AFTER 24 HOURS Resulted Current Medications Medications (Trade) Dose Ordered Sig/Berna Route PRN Reason Start Time Stop Time Status Last Admin Dose Admin Acetaminophen (Tylenol) 650 mg Q4H PRN ORAL fever 05/29/16 21:15 06/28/16 21:14 Al Hydroxide/Mg Hydroxide (Mylanta II) 30 ml Q6H PRN ORAL dyspepsia 05/29/16 21:15 06/28/16 21:14 Cefepime HCl 1 gm/ Dextrose 55 ml @ 110 mls/hr EVERY 8 HOURS IV 05/29/16 23:00 06/05/16 22:59 05/31/16 14:27 Dextrose (Dextrose 50%) STAT PRN IV Hypoglycemia 05/29/16 21:15 06/28/16 21:14 Heparin Sodium (Porcine) (Heparin 5000 units/ml) 5,000 units EVERY 12 HOURS SUBQ 05/29/16 22:00 06/28/16 21:59 05/30/16 09:41 Lorazepam (Ativan 2mg/ml 1ml) 0.5 mg Q4H PRN IV For Anxiety 05/29/16 21:15 06/05/16 21:14 Morphine Sulfate (Morphine Sulfate) 1 mg Q4H PRN IVP For Pain 05/29/16 21:15 06/05/16 21:14 Ondansetron HCl (Zofran) 4 mg Q6H PRN IVP Nausea & Vomiting 05/29/16 21:15 06/28/16 21:14 Polyethylene Glycol (Miralax) 17 gm HSPRN PRN ORAL Constipation 05/29/16 21:15 06/28/16 21:14 Vancomycin HCl 1 ea 1 ea DAILY PRN MISC Per rx protocol 05/29/16 21:15 06/28/16 21:14 Vancomycin HCl/ Dextrose (Vancomycin/D5W) 275 ml @ 183.708 mls/hr Q12H IVPB 05/30/16 06:00 06/04/16 05:59 05/31/16 06:05 Zolpidem Tartrate (Ambien) 5 mg HSPRN PRN ORAL Insomnia 05/29/16 21:15 06/28/16 21:14 BRIAN CLARK May 31, 2016 15:32
[2016-05-31 16:00] VITALS: BP 121/82
[2016-05-31] MEDS ORDERED: Tubing IV Secondary IV ONE (17:38)
[2016-05-31 20:00] VITALS: BP 134/82
--- NOTE | 2016-05-31 21:30 | Pulmonology Progress Note ---
Assessment/Plan Problems: (1) Cellulitis (2) Pedal edema Assessment/Plan improving continue antibiotics check electrolytes, and cbc. Subjective ROS Limited/Unobtainable: No Allergies: Coded Allergies: No Known Allergies (Unverified , 03/08/14) Objective Last 24 Hour Vital Signs Date Time Temp Pulse Resp B/P Pulse Ox O2 Delivery O2 Flow Rate FiO2 05/31/16 16:00 97.5 82 18 121/82 97 Room Air 05/31/16 11:26 97.5 84 19 123/86 96 Room Air 05/31/16 07:53 97.6 85 19 109/78 96 Room Air 05/31/16 04:00 96.8 80 20 92/53 96 Room Air 05/31/16 00:00 97.9 86 20 131/89 97 Room Air Intake and Output 05/30/16 05/31/16 19:00 07:00 Intake Total 560 ml 290 ml Output Total 700 ml 750 ml Balance -140 ml -460 ml Intake Oral 560 ml 180 ml IV Total 110 ml Output Urine Total 700 ml 750 ml # Voids 2 Objective General Appearance: WD/WN HEENT: normocephalic, atraumatic Respiratory/Chest: chest wall non-tender, lungs clear Cardiovascular: normal peripheral pulses, normal rate, regular rhythm Abdomen: normal bowel sounds, soft, non tender, no organomegaly Genitourinary: normal external genitalia Extremities: no cyanosis, no clubbing Skin: rash in both legs blow knee Neurologic/Psychiatric: publicity person II-XII grossly normal Microbiology Date/Time Source Procedure Growth Status 05/29/16 17:19 Blood Blood Culture - Preliminary NO GROWTH AFTER 24 HOURS Resulted 05/29/16 17:09 Blood Blood Culture - Preliminary NO GROWTH AFTER 24 HOURS Resulted Laboratory Tests 05/31/16 17:40: Vancomycin Level Trough 16.5H Current Medications Medications (Trade) Dose Ordered Sig/Berna Route PRN Reason Start Time Stop Time Status Last Admin Dose Admin Acetaminophen (Tylenol) 650 mg Q4H PRN ORAL fever 05/29/16 21:15 06/28/16 21:14 Al Hydroxide/Mg Hydroxide (Mylanta II) 30 ml Q6H PRN ORAL dyspepsia 05/29/16 21:15 06/28/16 21:14 Cefepime HCl 1 gm/ Dextrose 55 ml @ 110 mls/hr EVERY 8 HOURS IV 05/29/16 23:00 06/05/16 22:59 05/31/16 14:27 Dextrose (Dextrose 50%) STAT PRN IV Hypoglycemia 05/29/16 21:15 06/28/16 21:14 Heparin Sodium (Porcine) (Heparin 5000 units/ml) 5,000 units EVERY 12 HOURS SUBQ 05/29/16 22:00 06/28/16 21:59 05/30/16 09:41 Lorazepam (Ativan 2mg/ml 1ml) 0.5 mg Q4H PRN IV For Anxiety 05/29/16 21:15 06/05/16 21:14 Morphine Sulfate (Morphine Sulfate) 1 mg Q4H PRN IVP For Pain 05/29/16 21:15 06/05/16 21:14 Ondansetron HCl (Zofran) 4 mg Q6H PRN IVP Nausea & Vomiting 05/29/16 21:15 06/28/16 21:14 Polyethylene Glycol (Miralax) 17 gm HSPRN PRN ORAL Constipation 05/29/16 21:15 06/28/16 21:14 Vancomycin HCl 1 ea 1 ea DAILY PRN MISC Per rx protocol 05/29/16 21:15 06/28/16 21:14 Vancomycin HCl/ Dextrose (Vancomycin/D5W) 275 ml @ 183.708 mls/hr Q12HR IVPB 06/01/16 09:00 06/03/16 08:59 Zolpidem Tartrate (Ambien) 5 mg HSPRN PRN ORAL Insomnia 05/29/16 21:15 06/28/16 21:14 ESTEE RODRIGUEZ May 31, 2016 21:30
[2016-06-01] VITALS: BP 129/83
[2016-06-01 04:00] VITALS: BP 130/63
[2016-06-01] MEDS: Cefepime HCl 1 GM in D5W 55 ML IV SCH ×3 (05:42→22:26)
[2016-06-01 07:38] VITALS: BP 123/84
--- NOTE | 2016-06-01 07:52 | Pulmonology Progress Note ---
Assessment/Plan Assessment/Plan ASSESSMENT BLE cellulitis elevated total bili pain BLE PLAN OF CARE abx ID follows blood cx preliminary negative failed po abx in the past improving, still significantly symptomatic , will need one more day of IV antibiotics A/V Duplex BLE negative for DVT, PAD pain management PT/OT DVT prophylaxis dc plan for am on Keflex case discussed and evaluated by supervising physician Subjective Allergies: Coded Allergies: No Known Allergies (Unverified , 03/08/14) Subjective afebrile, no leukocytosis LE still red and painful failed oral antibiotics prior Objective Last 24 Hour Vital Signs Date Time Temp Pulse Resp B/P Pulse Ox O2 Delivery O2 Flow Rate FiO2 06/01/16 07:38 97.9 86 19 123/84 96 Room Air 06/01/16 04:00 97.7 83 20 130/63 95 Room Air 06/01/16 00:00 98.2 87 18 129/83 95 Room Air 05/31/16 20:00 97.9 85 18 134/82 97 Room Air 05/31/16 16:00 97.5 82 18 121/82 97 Room Air 05/31/16 11:26 97.5 84 19 123/86 96 Room Air 05/31/16 07:53 97.6 85 19 109/78 96 Room Air Intake and Output 05/31/16 06/01/16 19:00 07:00 Intake Total 743.708 ml 510 ml Output Total 600 ml 1650 ml Balance 143.708 ml -1140 ml Intake Oral 560 ml 400 ml IV Total 183.708 ml 110 ml Output Urine Total 600 ml 1650 ml General Appearance: WD/WN, no acute distress HEENT: normocephalic, atraumatic, anicteric, mucous membranes moist, PERRL Respiratory/Chest: lungs clear, no respiratory distress, no accessory muscle use Cardiovascular: normal peripheral pulses, normal rate Abdomen: normal bowel sounds, soft, non tender, non distended Genitourinary: normal external genitalia Skin: other - LE with redness, edema, warm to touch and TTP Musculoskeletal: normal muscle bulk Microbiology Date/Time Source Procedure Growth Status 05/29/16 17:19 Blood Blood Culture - Preliminary NO GROWTH AFTER 48 HOURS Resulted 05/29/16 17:09 Blood Blood Culture - Preliminary NO GROWTH AFTER 48 HOURS Resulted Laboratory Tests 05/31/16 17:40: Vancomycin Level Trough 16.5H Current Medications Medications (Trade) Dose Ordered Sig/Berna Route PRN Reason Start Time Stop Time Status Last Admin Dose Admin Acetaminophen (Tylenol) 650 mg Q4H PRN ORAL fever 05/29/16 21:15 06/28/16 21:14 Al Hydroxide/Mg Hydroxide (Mylanta II) 30 ml Q6H PRN ORAL dyspepsia 05/29/16 21:15 06/28/16 21:14 Cefepime HCl 1 gm/ Dextrose 55 ml @ 110 mls/hr EVERY 8 HOURS IV 05/29/16 23:00 06/05/16 22:59 06/01/16 05:42 Dextrose (Dextrose 50%) STAT PRN IV Hypoglycemia 05/29/16 21:15 06/28/16 21:14 Heparin Sodium (Porcine) (Heparin 5000 units/ml) 5,000 units EVERY 12 HOURS SUBQ 05/29/16 22:00 06/28/16 21:59 05/30/16 09:41 Lorazepam (Ativan 2mg/ml 1ml) 0.5 mg Q4H PRN IV For Anxiety 05/29/16 21:15 06/05/16 21:14 Morphine Sulfate (Morphine Sulfate) 1 mg Q4H PRN IVP For Pain 05/29/16 21:15 06/05/16 21:14 Ondansetron HCl (Zofran) 4 mg Q6H PRN IVP Nausea & Vomiting 05/29/16 21:15 06/28/16 21:14 Polyethylene Glycol (Miralax) 17 gm HSPRN PRN ORAL Constipation 05/29/16 21:15 06/28/16 21:14 Vancomycin HCl 1 ea 1 ea DAILY PRN MISC Per rx protocol 05/29/16 21:15 06/28/16 21:14 Vancomycin HCl/ Dextrose (Vancomycin/D5W) 275 ml @ 183.708 mls/hr Q12HR IVPB 06/01/16 09:00 06/03/16 08:59 Zolpidem Tartrate (Ambien) 5 mg HSPRN PRN ORAL Insomnia 05/29/16 21:15 06/28/16 21:14 Maribel Marquez NP (Vanchtein) Jun 01, 2016 07:52
[2016-06-01] MEDS: Heparin 5000 units/ml inj SUBQ SCH ×2 (08:38→20:41)
[2016-06-01] MEDS: Vancomycin 750 MG in D5W 275 ML IVPB SCH ×2 (08:54→20:40)
[2016-06-01] MEDS ORDERED: CEPHALEXIN500 MG ORAL (09:17)
[2016-06-01 11:24] VITALS: BP 107/71
--- NOTE | 2016-06-01 14:06 | Infectious Diseases Prog Note ---
Assessment/Plan Assessment/Plan ASSESSMENT: 66 y/o male with: // BLE cellulitis - improving - a/vdoppler(-) DVT, PAD - failed PO ABX ( however did not take regularly ) // Afebrile without leukocytosis // Isolated total bilirubin elevation // NKDA // Full Code PLAN: - ok to DC in AM on keflex x5 more days from ID standpoint. Will continue empiric IV vancomycin, cefepime d# 4 / 10 while still inpt - f/u final cultures - monitor CBC, temperatures - monitor BMP - BLE elevation, compression d/w [employer] Marquez Subjective Allergies: Coded Allergies: No Known Allergies (Unverified , 03/08/14) Subjective remains afebrile. no new complaint DC planning tomorrow AM Objective Vital Signs Last 24 Hour Vital Signs Date Time Temp Pulse Resp B/P Pulse Ox O2 Delivery O2 Flow Rate FiO2 06/01/16 11:24 98.2 82 19 107/71 96 Room Air 06/01/16 07:38 97.9 86 19 123/84 96 Room Air 06/01/16 04:00 97.7 83 20 130/63 95 Room Air 06/01/16 00:00 98.2 87 18 129/83 95 Room Air 05/31/16 20:00 97.9 85 18 134/82 97 Room Air 05/31/16 16:00 97.5 82 18 121/82 97 Room Air Height (Feet): 5 Height (Inches): 9.00 Weight (Pounds): 165 General Appearance: no acute distress Respiratory/Chest: no respiratory distress Cardiovascular: normal rate, regular rhythm Abdomen: normal bowel sounds, soft, non tender, non distended Extremities: other - BLE erythema, edema, warmth Microbiology Date/Time Source Procedure Growth Status 05/29/16 17:19 Blood Blood Culture - Preliminary NO GROWTH AFTER 48 HOURS Resulted 05/29/16 17:09 Blood Blood Culture - Preliminary NO GROWTH AFTER 48 HOURS Resulted Laboratory Tests Test 05/31/16 17:40 Vancomycin Level Trough 16.5 ug/mL (5.0-12.0) H Current Medications Medications (Trade) Dose Ordered Sig/Berna Route PRN Reason Start Time Stop Time Status Last Admin Dose Admin Acetaminophen (Tylenol) 650 mg Q4H PRN ORAL fever 05/29/16 21:15 06/28/16 21:14 Al Hydroxide/Mg Hydroxide (Mylanta II) 30 ml Q6H PRN ORAL dyspepsia 05/29/16 21:15 06/28/16 21:14 Cefepime HCl 1 gm/ Dextrose 55 ml @ 110 mls/hr EVERY 8 HOURS IV 05/29/16 23:00 06/05/16 22:59 06/01/16 13:49 Dextrose (Dextrose 50%) STAT PRN IV Hypoglycemia 05/29/16 21:15 06/28/16 21:14 Heparin Sodium (Porcine) (Heparin 5000 units/ml) 5,000 units EVERY 12 HOURS SUBQ 05/29/16 22:00 06/28/16 21:59 05/30/16 09:41 Lorazepam (Ativan 2mg/ml 1ml) 0.5 mg Q4H PRN IV For Anxiety 05/29/16 21:15 06/05/16 21:14 Morphine Sulfate (Morphine Sulfate) 1 mg Q4H PRN IVP For Pain 05/29/16 21:15 06/05/16 21:14 Ondansetron HCl (Zofran) 4 mg Q6H PRN IVP Nausea & Vomiting 05/29/16 21:15 06/28/16 21:14 Polyethylene Glycol (Miralax) 17 gm HSPRN PRN ORAL Constipation 05/29/16 21:15 06/28/16 21:14 Vancomycin HCl 1 ea 1 ea DAILY PRN MISC Per rx protocol 05/29/16 21:15 06/28/16 21:14 Vancomycin HCl/ Dextrose (Vancomycin/D5W) 275 ml @ 183.708 mls/hr Q12HR IVPB 06/01/16 09:00 06/03/16 08:59 06/01/16 08:54 Zolpidem Tartrate (Ambien) 5 mg HSPRN PRN ORAL Insomnia 05/29/16 21:15 06/28/16 21:14 BRIAN CLARK Jun 01, 2016 14:06
--- NOTE | 2016-06-01 14:32 | Cardiology Report ---
APPROVED REPORT EKG Measurement Heart [id number] Sinus rhythm with 1st degree AV block Voltage criteria for left ventricular hypertrophy Abnormal ECG
[2016-06-01 15:59] VITALS: BP 138/94
[2016-06-01 19:00] VITALS: BP 136/92
--- NOTE | 2016-06-01 21:45 | Diagnostic Imaging Report ---
APPROVED REPORT CPT Code: 49007 Symptoms Comments: Cellulitis BILATERAL: Common femoral artery waveform analysis is within normal limits at rest. Color flow duplex sonography reveals minimal calcification throughout the superficial femoral, and popliteal arteries. There is no evidence of stenosis or occlusion within these segments. The tibioperoneal trunks were patent. The posterior tibial, anterior tibial and dorsalis pedis arteries are also minimally calcified. Doppler tibial artery waveform (triphasic) analysis is within normal limits, bilaterally. Doppler tibial artery waveform analysis is within normal limits, bilaterally. There is no evidence of significant arterial occlusive disease, bilaterally.
--- NOTE | 2016-06-01 21:46 | Diagnostic Imaging Report ---
APPROVED REPORT CPT Code: 63319 Present Symptoms Lower Extremity Pain: Bilateral Lower Extremity Edema: Bilateral Past History DVT : BILATERAL: Imaging reveals a patent deep venous system bilaterally. There is no evidence of thrombus within the femoral, popliteal or tibial segments. The greater saphenous veins are also within normal limits. Doppler indicates normal spontaneous flow within these segments.
[2016-06-02] VITALS: BP 146/96
[2016-06-02 04:00] VITALS: BP 133/92
[2016-06-02] MEDS: Cefepime HCl 1 GM in D5W 55 ML IV SCH ×2 (05:46→12:13)
[2016-06-02 07:39] LABS: EOSINOPHILS % (AUTO) 0.1 % (0.0-3.0); LYMPHOCYTES % (AUTO) 26.2 % (20.0-45.0); MEAN CORPUSCULAR VOLUME 91 FL (80-99); MEAN PLATELET VOLUME 9.4 FL (6.5-10.1); MONOCYTES % (AUTO) 8.1 % (1.0-10.0); NEUTROPHILS % (AUTO) 64.6 % (45.0-75.0); PLATELET COUNT 152 K/UL (150-450); RED BLOOD COUNT 4.87 M/UL (4.70-6.10); RED CELL DISTRIBUTION WIDTH 12.4 % (11.6-14.8); WHITE BLOOD COUNT 5.3 K/UL (4.8-10.8)
[2016-06-02 07:52] LABS: ANION GAP 15 (5-15); CALCIUM 8.8 mg/dL (8.6-10.2); CARBON DIOXIDE 25 mEQ/L (20-30); CHLORIDE 101 mEQ/L (98-107); GLOMERULAR FILTRATION RATE > 60 mL/min (>60); HEMOLYSIS 6; POTASSIUM 3.8 mEQ/L (3.4-4.9); SODIUM 141 mEQ/L (135-145)
[2016-06-02 08:00] VITALS: BP 124/81
[2016-06-02] MEDS: Vancomycin 750 MG in D5W 275 ML IVPB SCH ×2 (08:53→21:29)
[2016-06-02] MEDS: Heparin 5000 units/ml inj SUBQ SCH ×2 (09:00→21:35)
--- NOTE | 2016-06-02 09:58 | Wound Care Consultation ---
Wound Assessment Wound Assessment #1: Wound Number: #1 Wound Present on Admission: Yes New Wound: No Status Change of Wound: No Wound Location Body Site Modif: left, lower Wound Location Body Site: leg Wound Type: other - Cellulitis with adhered dry scattered scabs on anterior portion of leg. Millicent Test: Does not Millicent Percent of Wound [place]/Red: 100 Wound Drainage Amount: None Wound Drainage Odor: None/Absent Tissue Surrounding Wound: Erythemic Wound General Appearance: Reddened - warm to touch., Open to air Wound Assessment #2: Wound Number: #2 Wound Present on Admission: Yes New Wound: No Status Change of Wound: No Wound Location Body Site Modif: right, lower Wound Location Body Site: leg Wound Type: other - Cellulitis Millicent Test: Does not Millicent Percent of Wound [place]/Red: 100 Wound Drainage Amount: None Wound Drainage Odor: None/Absent Tissue Surrounding Wound: Erythemic - warm to touch Wound General Appearance: Reddened, Open to air Wound Comment #1 Right lower extremity Cellulitis. #2 Left lower extremity Cellulitis with scattered adhered dry scabs. Recommendation - Continue current local wound care treatment as previously ordered. appropriate treatment. leave open to air. - Turn and reposition. -Keep clean and dry. -Optimize nutrition. -Assess and notify MD if any further change of condition is noted. upon assessment noted scabs to anterior portion of left leg. no open wound noted to left and right lower extremity. DOE JACKSON Jun 02, 2016 09:58
[2016-06-02 12:00] VITALS: BP 136/92
--- NOTE | 2016-06-02 13:30 | Pulmonology Progress Note ---
Assessment/Plan Assessment/Plan ASSESSMENT BLE cellulitis elevated total bili pain BLE homeless PLAN OF CARE abx ID follows blood cx preliminary negative failed po abx in the past improving, still significantly symptomatic , will need one more day of IV antibiotics A/V Duplex BLE negative for DVT, PAD pain management PT/OT DVT prophylaxis dc today on oral Keflex ( scripts in the chart) patient is homeless needs placement SS for placement, per PT patient needs assistance with walking, not 100% independent case discussed and evaluated by supervising physician Subjective Allergies: Coded Allergies: No Known Allergies (Unverified , 03/08/14) Subjective afebrile, no leukocytosis LE with less erythema, still painful failed oral antibiotics prior Objective Last 24 Hour Vital Signs Date Time Temp Pulse Resp B/P Pulse Ox O2 Delivery O2 Flow Rate FiO2 06/02/16 12:00 97.5 79 18 136/92 95 Room Air 06/02/16 08:00 97.5 84 18 124/81 96 Room Air 06/02/16 04:00 97.7 81 18 133/92 97 Room Air 06/02/16 00:00 98.2 94 18 146/96 95 Room Air 06/01/16 19:00 98.1 90 20 136/92 96 Room Air 06/01/16 15:59 98.1 98 20 138/94 96 Room Air Intake and Output 06/01/16 06/02/16 19:00 07:00 Intake Total 750.000 ml 790 ml Output Total 500 ml 850 ml Balance 250.000 ml -60 ml Intake Oral 420 ml 680 ml IV Total 330.000 ml 110 ml Output Urine Total 500 ml 850 ml # Voids 4 Objective General Appearance: WD/WN, no acute distress HEENT: normocephalic, atraumatic, anicteric, mucous membranes moist, PERRL Respiratory/Chest: lungs clear, no respiratory distress, no accessory muscle use Cardiovascular: normal peripheral pulses, normal rate Abdomen: normal bowel sounds, soft, non tender, non distended Genitourinary: normal external genitalia Skin: other - LE with redness, edema, warm to touch and TTP Musculoskeletal: normal muscle bulk Laboratory Tests 06/02/16 06:50: White Blood Count 5.3, Red Blood Count 4.87, Hemoglobin 15.1, Hematocrit 44.5, Mean Corpuscular Volume 91, Mean Corpuscular Hemoglobin 31.0, Mean Corpuscular Hemoglobin Concent 34.0, Red Cell Distribution Width 12.4, Platelet Count 152, Mean Platelet Volume 9.4, Neutrophils (%) (Auto) 64.6, Lymphocytes (%) (Auto) 26.2, Monocytes (%) (Auto) 8.1, Eosinophils (%) (Auto) 0.1, Basophils (%) (Auto ) 1.0, Sodium Level 141, Potassium Level 3.8, Chloride Level 101, Carbon Dioxide Level 25, Anion Gap 15, Blood Urea Nitrogen 15, Creatinine 1.0, Estimat Glomerular Filtration Rate > 60, Glucose Level 98, Calcium Level 8.8 Current Medications Medications (Trade) Dose Ordered Sig/Berna Route PRN Reason Start Time Stop Time Status Last Admin Dose Admin Acetaminophen (Tylenol) 650 mg Q4H PRN ORAL fever 05/29/16 21:15 06/28/16 21:14 Al Hydroxide/Mg Hydroxide (Mylanta II) 30 ml Q6H PRN ORAL dyspepsia 05/29/16 21:15 06/28/16 21:14 Cefepime HCl 1 gm/ Dextrose 55 ml @ 110 mls/hr EVERY 8 HOURS IV 05/29/16 23:00 06/05/16 22:59 06/02/16 12:13 Dextrose (Dextrose 50%) STAT PRN IV Hypoglycemia 05/29/16 21:15 06/28/16 21:14 Heparin Sodium (Porcine) (Heparin 5000 units/ml) 5,000 units EVERY 12 HOURS SUBQ 05/29/16 22:00 06/28/16 21:59 06/02/16 09:00 Lorazepam (Ativan 2mg/ml 1ml) 0.5 mg Q4H PRN IV For Anxiety 05/29/16 21:15 06/05/16 21:14 Morphine Sulfate (Morphine Sulfate) 1 mg Q4H PRN IVP For Pain 05/29/16 21:15 06/05/16 21:14 Ondansetron HCl (Zofran) 4 mg Q6H PRN IVP Nausea & Vomiting 05/29/16 21:15 06/28/16 21:14 Polyethylene Glycol (Miralax) 17 gm HSPRN PRN ORAL Constipation 05/29/16 21:15 06/28/16 21:14 Vancomycin HCl 1 ea 1 ea DAILY PRN MISC Per rx protocol 05/29/16 21:15 06/28/16 21:14 Vancomycin HCl/ Dextrose (Vancomycin/D5W) 275 ml @ 183.708 mls/hr Q12HR IVPB 06/01/16 09:00 06/07/16 08:59 06/02/16 08:53 Zolpidem Tartrate (Ambien) 5 mg HSPRN PRN ORAL Insomnia 05/29/16 21:15 06/28/16 21:14 Maribel Marquez NP (Vanchtein) Jun 02, 2016 13:30
[2016-06-02] MEDS ORDERED: NS 275ml ONE (13:57)
[2016-06-02 16:00] VITALS: BP 127/77
[2016-06-02 20:00] VITALS: BP 127/84
[2016-06-03] VITALS: BP 127/85
[2016-06-03] MEDS: Cefepime HCl 1 GM in D5W 55 ML IV SCH ×4 (00:20→23:58)
[2016-06-03 08:00] VITALS: BP 143/90
[2016-06-03] MEDS: Vancomycin 750 MG in D5W 275 ML IVPB SCH ×2 (08:50→22:07)
[2016-06-03] MEDS: Heparin 5000 units/ml inj SUBQ SCH ×2 (08:53→22:10)
[2016-06-03] MEDS ORDERED: NS 550ML IV ONE (10:35)
[2016-06-03] MEDS ORDERED: Tubing IV Secondary IV ONE (10:35)
[2016-06-03 12:00] VITALS: BP 135/78
--- NOTE | 2016-06-03 13:45 | Infectious Diseases Prog Note ---
Assessment/Plan Assessment/Plan ASSESSMENT: 66 y/o male with: // BLE cellulitis - improving - a/vdoppler(-) DVT, PAD - failed PO ABX ( however did not take regularly ) // Afebrile without leukocytosis // Isolated total bilirubin elevation // Homeless // NKDA // Full Code PLAN: - ok to DC on PO keflex x4 more days from ID standpoint. Will continue empiric IV vancomycin, cefepime d# 6 / 10 while still inpt - f/u final cultures - monitor CBC, temperatures - monitor BMP - BLE elevation, compression Subjective Allergies: Coded Allergies: No Known Allergies (Unverified , 03/08/14) Subjective remains afebrile. no new complaint DC planning ongoing Objective Vital Signs Last 24 Hour Vital Signs Date Time Temp Pulse Resp B/P Pulse Ox O2 Delivery O2 Flow Rate FiO2 06/03/16 12:00 98.2 67 18 135/78 06/03/16 08:00 98.2 85 17 143/90 96 Room Air 06/03/16 00:00 97.9 80 18 127/85 96 Room Air 06/02/16 20:00 97.9 80 18 127/84 96 Room Air 06/02/16 16:00 97.7 71 19 127/77 100 Room Air Height (Feet): 5 Height (Inches): 9.00 Weight (Pounds): 165 General Appearance: no acute distress Respiratory/Chest: no respiratory distress Cardiovascular: normal rate, regular rhythm Abdomen: normal bowel sounds, soft, non tender, non distended Extremities: other - BLE erythema, edema warmth improved Current Medications Medications (Trade) Dose Ordered Sig/Berna Route PRN Reason Start Time Stop Time Status Last Admin Dose Admin Acetaminophen (Tylenol) 650 mg Q4H PRN ORAL fever 05/29/16 21:15 06/28/16 21:14 Al Hydroxide/Mg Hydroxide (Mylanta II) 30 ml Q6H PRN ORAL dyspepsia 05/29/16 21:15 06/28/16 21:14 Cefepime HCl 1 gm/ Dextrose 55 ml @ 110 mls/hr EVERY 8 HOURS IV 05/29/16 23:00 06/05/16 22:59 06/03/16 06:07 Dextrose (Dextrose 50%) STAT PRN IV Hypoglycemia 05/29/16 21:15 06/28/16 21:14 Heparin Sodium (Porcine) (Heparin 5000 units/ml) 5,000 units EVERY 12 HOURS SUBQ 05/29/16 22:00 06/28/16 21:59 06/03/16 08:53 Lorazepam (Ativan 2mg/ml 1ml) 0.5 mg Q4H PRN IV For Anxiety 05/29/16 21:15 06/05/16 21:14 Morphine Sulfate (Morphine Sulfate) 1 mg Q4H PRN IVP For Pain 05/29/16 21:15 06/05/16 21:14 Ondansetron HCl (Zofran) 4 mg Q6H PRN IVP Nausea & Vomiting 05/29/16 21:15 06/28/16 21:14 Polyethylene Glycol (Miralax) 17 gm HSPRN PRN ORAL Constipation 05/29/16 21:15 06/28/16 21:14 Vancomycin HCl 1 ea 1 ea DAILY PRN MISC Per rx protocol 05/29/16 21:15 06/28/16 21:14 Vancomycin HCl/ Dextrose (Vancomycin/D5W) 275 ml @ 183.708 mls/hr Q12HR IVPB 06/01/16 09:00 06/07/16 08:59 06/03/16 08:50 Zolpidem Tartrate (Ambien) 5 mg HSPRN PRN ORAL Insomnia 05/29/16 21:15 06/28/16 21:14 BRIAN CLARK Jun 03, 2016 13:45
--- NOTE | 2016-06-03 14:23 | Pulmonology Progress Note ---
Assessment/Plan Assessment/Plan ASSESSMENT BLE cellulitis elevated total bili pain BLE homeless PLAN OF CARE abx ID follows blood cx preliminary negative failed po abx in the past improving, still significantly symptomatic , will need one more day of IV antibiotics A/V Duplex BLE negative for DVT, PAD pain management PT/OT DVT prophylaxis dc on oral Keflex ( scripts in the chart) patient is homeless and needs placement SS for placement, per PT patient needs assistance with walking, not 100% independent discussed 06/02 with ASAEL Treadwell, case discussed and evaluated by supervising physician Subjective Allergies: Coded Allergies: No Known Allergies (Unverified , 03/08/14) Subjective afebrile, no leukocytosis LE with less erythema, still painful failed oral antibiotics prior Objective Last 24 Hour Vital Signs Date Time Temp Pulse Resp B/P Pulse Ox O2 Delivery O2 Flow Rate FiO2 06/03/16 12:00 98.2 67 18 135/78 06/03/16 08:00 98.2 85 17 143/90 96 Room Air 06/03/16 00:00 97.9 80 18 127/85 96 Room Air 06/02/16 20:00 97.9 80 18 127/84 96 Room Air 06/02/16 16:00 97.7 71 19 127/77 100 Room Air Intake and Output 06/02/16 06/03/16 19:00 07:00 Intake Total 1095 ml Output Total 800 ml 1350 ml Balance -800 ml -255 ml Intake Oral 600 ml IV Total 495 ml Output Urine Total 800 ml 1350 ml Objective General Appearance: WD/WN, no acute distress HEENT: normocephalic, atraumatic, anicteric, mucous membranes moist, PERRL Respiratory/Chest: lungs clear, no respiratory distress, no accessory muscle use Cardiovascular: normal peripheral pulses, normal rate Abdomen: normal bowel sounds, soft, non tender, non distended Genitourinary: normal external genitalia Skin: other - LE with redness, edema, warm to touch and TTP Musculoskeletal: normal muscle bulk Current Medications Medications (Trade) Dose Ordered Sig/Berna Route PRN Reason Start Time Stop Time Status Last Admin Dose Admin Acetaminophen (Tylenol) 650 mg Q4H PRN ORAL fever 05/29/16 21:15 06/28/16 21:14 Al Hydroxide/Mg Hydroxide (Mylanta II) 30 ml Q6H PRN ORAL dyspepsia 05/29/16 21:15 06/28/16 21:14 Cefepime HCl 1 gm/ Dextrose 55 ml @ 110 mls/hr EVERY 8 HOURS IV 05/29/16 23:00 06/05/16 22:59 06/03/16 06:07 Dextrose (Dextrose 50%) STAT PRN IV Hypoglycemia 05/29/16 21:15 06/28/16 21:14 Heparin Sodium (Porcine) (Heparin 5000 units/ml) 5,000 units EVERY 12 HOURS SUBQ 05/29/16 22:00 06/28/16 21:59 06/03/16 08:53 Lorazepam (Ativan 2mg/ml 1ml) 0.5 mg Q4H PRN IV For Anxiety 05/29/16 21:15 06/05/16 21:14 Morphine Sulfate (Morphine Sulfate) 1 mg Q4H PRN IVP For Pain 05/29/16 21:15 06/05/16 21:14 Ondansetron HCl (Zofran) 4 mg Q6H PRN IVP Nausea & Vomiting 05/29/16 21:15 06/28/16 21:14 Polyethylene Glycol (Miralax) 17 gm HSPRN PRN ORAL Constipation 05/29/16 21:15 06/28/16 21:14 Vancomycin HCl 1 ea 1 ea DAILY PRN MISC Per rx protocol 05/29/16 21:15 06/28/16 21:14 Vancomycin HCl/ Dextrose (Vancomycin/D5W) 275 ml @ 183.708 mls/hr Q12HR IVPB 06/01/16 09:00 06/07/16 08:59 06/03/16 08:50 Zolpidem Tartrate (Ambien) 5 mg HSPRN PRN ORAL Insomnia 05/29/16 21:15 06/28/16 21:14 Maribel Marquez NP (Vanchtein) Jun 03, 2016 14:23
[2016-06-03 16:36] VITALS: BP 123/92
[2016-06-03 20:00] VITALS: BP 135/85
[2016-06-04] VITALS: BP 130/81
[2016-06-04 04:00] VITALS: BP 128/79
[2016-06-04] MEDS: Cefepime HCl 1 GM in D5W 55 ML IV SCH ×2 (06:23→15:25)
[2016-06-04 07:46] VITALS: BP 123/70
[2016-06-04] MEDS: Heparin 5000 units/ml inj SUBQ SCH (09:00)
[2016-06-04] MEDS: Vancomycin 750 MG in D5W 275 ML IVPB SCH (10:21)
[2016-06-04 12:04] VITALS: BP 117/77
--- NOTE | 2016-06-04 15:54 | Infectious Diseases Prog Note ---
Assessment/Plan Assessment/Plan ASSESSMENT: 66 y/o male with: // BLE cellulitis - improving - a/vdoppler(-) DVT, PAD - failed PO ABX ( however did not take regularly ) // Afebrile without leukocytosis // Isolated total bilirubin elevation // Homeless // NKDA // Full Code PLAN: - ok to DC on PO keflex x7 more days from ID standpoint. Will continue empiric IV vancomycin, cefepime d# while still inpt - f/u final cultures - monitor CBC, temperatures - monitor BMP - BLE elevation, compression - DC planning Subjective Allergies: Coded Allergies: No Known Allergies (Unverified , 03/08/14) Subjective remains afebrile. no new complaint DC planning ongoing Objective Vital Signs Last 24 Hour Vital Signs Date Time Temp Pulse Resp B/P Pulse Ox O2 Delivery O2 Flow Rate FiO2 06/04/16 12:04 97.9 79 19 117/77 95 Room Air 06/04/16 07:46 98.2 70 19 123/70 95 Room Air 06/04/16 04:00 98.6 72 18 128/79 100 Room Air 06/04/16 00:00 98.6 75 20 130/81 100 Room Air 06/03/16 20:00 98.1 77 18 135/85 98 Room Air 06/03/16 16:36 97.3 74 15 123/92 100 Room Air Height (Feet): 5 Height (Inches): 9.00 Weight (Pounds): 165 General Appearance: no acute distress Respiratory/Chest: no respiratory distress Cardiovascular: normal rate, regular rhythm Abdomen: normal bowel sounds, soft, non tender, non distended Extremities: other - BLE erythema, edema, warmth improved Current Medications Medications (Trade) Dose Ordered Sig/Berna Route PRN Reason Start Time Stop Time Status Last Admin Dose Admin Acetaminophen (Tylenol) 650 mg Q4H PRN ORAL fever 05/29/16 21:15 06/28/16 21:14 Al Hydroxide/Mg Hydroxide (Mylanta II) 30 ml Q6H PRN ORAL dyspepsia 05/29/16 21:15 06/28/16 21:14 Cefepime HCl 1 gm/ Dextrose 55 ml @ 110 mls/hr EVERY 8 HOURS IV 05/29/16 23:00 06/05/16 22:59 06/04/16 15:25 Dextrose (Dextrose 50%) STAT PRN IV Hypoglycemia 05/29/16 21:15 06/28/16 21:14 Heparin Sodium (Porcine) (Heparin 5000 units/ml) 5,000 units EVERY 12 HOURS SUBQ 05/29/16 22:00 06/28/16 21:59 06/03/16 22:10 Lorazepam (Ativan 2mg/ml 1ml) 0.5 mg Q4H PRN IV For Anxiety 05/29/16 21:15 06/05/16 21:14 Morphine Sulfate (Morphine Sulfate) 1 mg Q4H PRN IVP For Pain 05/29/16 21:15 06/05/16 21:14 Ondansetron HCl (Zofran) 4 mg Q6H PRN IVP Nausea & Vomiting 05/29/16 21:15 06/28/16 21:14 Polyethylene Glycol (Miralax) 17 gm HSPRN PRN ORAL Constipation 05/29/16 21:15 06/28/16 21:14 Vancomycin HCl 1 ea 1 ea DAILY PRN MISC Per rx protocol 05/29/16 21:15 06/28/16 21:14 Vancomycin HCl/ Dextrose (Vancomycin/D5W) 275 ml @ 183.708 mls/hr Q12HR IVPB 06/01/16 09:00 06/07/16 08:59 06/04/16 10:21 Zolpidem Tartrate (Ambien) 5 mg HSPRN PRN ORAL Insomnia 05/29/16 21:15 06/28/16 21:14 BRIAN CLARK Jun 04, 2016 15:54
[2016-06-04] MEDS ORDERED: NS 550ML IV ONE (16:47)
--- NOTE | 2016-06-04 16:49 | Pulmonology Progress Note ---
Assessment/Plan Problems: (1) Cellulitis (2) Pedal edema Assessment/Plan improving continue antibiotics check electrolytes, and cbc. dc planning to acute rehab Subjective ROS Limited/Unobtainable: No Constitutional: Reports: no symptoms Respiratory: Reports: no symptoms Allergies: Coded Allergies: No Known Allergies (Unverified , 03/08/14) Objective Last 24 Hour Vital Signs Date Time Temp Pulse Resp B/P Pulse Ox O2 Delivery O2 Flow Rate FiO2 06/04/16 12:04 97.9 79 19 117/77 95 Room Air 06/04/16 07:46 98.2 70 19 123/70 95 Room Air 06/04/16 04:00 98.6 72 18 128/79 100 Room Air 06/04/16 00:00 98.6 75 20 130/81 100 Room Air 06/03/16 20:00 98.1 77 18 135/85 98 Room Air Intake and Output 06/03/16 06/04/16 19:00 07:00 Intake Total 1025 ml 587.416 ml Output Total 1200 ml 200 ml Balance -175 ml 387.416 ml Intake Oral 1025 ml IV Total 587.416 ml Output Urine Total 1200 ml 200 ml # Voids 2 Objective General Appearance: WD/WN HEENT: normocephalic, atraumatic Respiratory/Chest: chest wall non-tender, lungs clear Cardiovascular: normal peripheral pulses, normal rate, regular rhythm Abdomen: normal bowel sounds, soft, non tender, no organomegaly Genitourinary: normal external genitalia Extremities: no cyanosis, no clubbing Skin: rash in both legs blow knee 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 General Appearance: WD/WN, no acute distress Respiratory/Chest: chest wall non-tender, lungs clear Cardiovascular: normal peripheral pulses, normal rate Genitourinary: normal external genitalia Skin: no rash Current Medications Medications (Trade) Dose Ordered Sig/Berna Route PRN Reason Start Time Stop Time Status Last Admin Dose Admin Acetaminophen (Tylenol) 650 mg Q4H PRN ORAL fever 05/29/16 21:15 06/28/16 21:14 Al Hydroxide/Mg Hydroxide (Mylanta II) 30 ml Q6H PRN ORAL dyspepsia 05/29/16 21:15 06/28/16 21:14 Cefepime HCl 1 gm/ Dextrose 55 ml @ 110 mls/hr EVERY 8 HOURS IV 2/14/17 23:00 06/05/16 22:59 06/04/16 15:25 Dextrose (Dextrose 50%) STAT PRN IV Hypoglycemia 05/29/16 21:15 06/28/16 21:14 Heparin Sodium (Porcine) (Heparin 5000 units/ml) 5,000 units EVERY 12 HOURS SUBQ 05/29/16 22:00 06/28/16 21:59 06/03/16 22:10 Lorazepam (Ativan 2mg/ml 1ml) 0.5 mg Q4H PRN IV For Anxiety 05/29/16 21:15 06/05/16 21:14 Morphine Sulfate (Morphine Sulfate) 1 mg Q4H PRN IVP For Pain 05/29/16 21:15 06/05/16 21:14 Ondansetron HCl (Zofran) 4 mg Q6H PRN IVP Nausea & Vomiting 05/29/16 21:15 06/28/16 21:14 Polyethylene Glycol (Miralax) 17 gm HSPRN PRN ORAL Constipation 05/29/16 21:15 06/28/16 21:14 Vancomycin HCl 1 ea 1 ea DAILY PRN MISC Per rx protocol 05/29/16 21:15 06/28/16 21:14 Vancomycin HCl/ Dextrose (Vancomycin/D5W) 275 ml @ 183.708 mls/hr Q12HR IVPB 06/01/16 09:00 06/07/16 08:59 06/04/16 10:21 Zolpidem Tartrate (Ambien) 5 mg HSPRN PRN ORAL Insomnia 05/29/16 21:15 06/28/16 21:14 ESTEE RODRIGUEZ Jun 04, 2016 16:49
--- NOTE | 2016-06-05 10:23 | Discharge Summary ---
Discharge Summary Hospital Course Date of Admission May 29, 2016 at 17:10 Date of Discharge Jun 04, 2016 at 18:45 Admitting Diagnosis cellulitis HPI Lamine Kumar is a 66 year old male who was admitted on May 29, 2016 at 17:10 for Cellulitis Hospital Course dc summary dictated #[id number] Discharge Medications New Medications: Cephalexin* (Keflex*) 500 Mg Capsule 500 MG ORAL EVERY 12 HOURS, #20 CAP 0 Refills Discharge Condition Upon Discharge: stable Discharge Disposition Patient was discharged to SNF/Subacute Facility(03) Discharge Diagnoses: Jimmy (Vancmarioein),Maribel WHITE Jun 05, 2016 10:23
--- NOTE | 2016-06-05 22:08 | Discharge Summary 2 SIG ---
DATE OF ADMISSION: 05/29/2016 DATE OF DISCHARGE: 06/04/2016 REASON FOR ADMISSION: 66-year-old male came to emergency room complaining of bilateral lower extremities swelling and redness, rapidly progressing over the past week. He stated that he had similar symptoms in the past and was taking antibiotics. He also reported a history of blood clots in his legs. He denied fever and chills. No nausea. No vomiting. He denied chest pain, shortness of breath, cough. Workup in the emergency room was noncontributory. No leukocytosis, stable hemoglobin and hematocrit, electrolytes stable, renal parameters stable, glucose 95, lactic acid within normal limits, and LFT stable. Clinical exam consistent with severe bilateral lower extremity cellulitis with severe edema. The patient started on empiric antibiotics. Blood culture were drawn and the patient was admitted for IV antibiotics and further management. EKG revealed normal sinus rhythm. No ischemic changes , first-degree AV block. Venous duplex bilateral lower extremities revealed no evidence of acute DVT. ADMITTING DIAGNOSES: 1. Cellulitis, bilateral lower extremities. 2. Pedal edema 3. Pain in bilateral lower extremities. HOSPITAL COURSE: The patient was admitted to Med/Surg floor. ID followed. Blood culture were negative. The patient failed p.o. antibiotic in the past and was on the IV antibiotic with improvement. Arterial and venous duplex were both done, venous duplex was negative for DVT and arterial duplex was negative for PAD. Pain management was provided. DVT prophylaxis was provided. Bowel regimen was instituted. The patient was on IV antibiotics and was discharged on oral Keflex. The patient was working with physical and occupational therapists. Per physical therapy, the patient needs assistance with walking, not 100% independent. technical product manager was contacted and arranged placement to the [facility] facility. ID cleared for discharge. DISCHARGE MEDICATIONS: See medication reconciliation list. Continue oral Keflex as outlined in medication reconciliation list. DISCHARGE DIAGNOSES: 1. Bilateral lower extremity cellulitis. 2. Pedal edema, improved. 3. Pain in bilateral lower extremities- resolved. 4. Homeless. DISCHARGE INSTRUCTIONS: The patient was discharged to, for short-term [facility] facility. FOLLOWUP: Follow up with medical doctor at the facility. ESTEE RODRIGUEZ M.D. Maribel Marquez N.P. (Vanchtein) DR: JARETH JOB#: [id number] CC: ROSANNA
== END 2016-06-04 18:45 | DRG 603 ==
LOC: EMR 17:01 → 4E 17:10 → EDBEDREQ 18:04
DX: L03.116 Cellulitis of left lower limb (principal); M79.604 Pain in right leg; L03.115 Cellulitis of right lower limb; R60.9 Edema, unspecified; M79.605 Pain in left leg; Z59.0 Homelessness; Z86.718 Personal history of other venous thrombosis and embolism; Z86.73 Personal history of transient ischemic attack (TIA), and cerebral infarction without residual deficits
CPT/HCPCS: 36415; 80048; 80053; 80061; 80202; 81003; 82248; 82550; 82553; 83036; 83605; 84443; 85025; 87040; 93005; 93925; 93970

== ENCOUNTER 2017-01-16 12:00 | Inpatient (IN) | payer MEDICARE, MEDICAID ==
[~2017-01-16] VITALS: Ht 175.3 cm; Wt 70.3 kg
[~2017-01-16 12:00] MED LIST changes: +CEPHALEXIN500 MG ORAL
[2017-01-17] MEDS ORDERED: Miralax 17gm pkt ORAL PRN (14:45)
[2017-01-17] MEDS ORDERED: Morphine Sulfate 4mg/ml Inj IVP PRN (14:45)
[2017-01-17] MEDS ORDERED: Zolpidem 5mg tab ORAL PRN (14:45)
[2017-01-17] MEDS ORDERED: Morphine Sulfate 2mg/ml Inj IVP PRN (14:45)
[2017-01-17] MEDS ORDERED: Meclizine 25mg tab ORAL PRN (14:45)
[2017-01-17] MEDS ORDERED: LORazepam Inj 2mg/ml 1ml IV PRN (14:45)
[2017-01-17] MEDS ORDERED: MIRALAX17 G2 ORAL (14:46)
[2017-01-17] MEDS ORDERED: CYMBALTA30 MG ORAL (14:46)
[2017-01-17] MEDS ORDERED: IBUPROFEN200 MG ORAL (14:46)
[2017-01-17] MEDS ORDERED: CYMBALTA60 MG ORAL (14:46)
[2017-01-17] MEDS ORDERED: AMBIEN10 M1 ORAL (14:46)
[2017-01-17] MEDS ORDERED: ALUM-MAG HYDRO360 ML PO (14:46)
[2017-01-17] MEDS ORDERED: ATIVAN0.5 MG ORAL (14:46)
[2017-01-17 16:00] VITALS: BP 120/85
--- NOTE | 2017-01-17 16:40 | History and Physical ---
History of Present Illness General Date patient seen: Jan 17, 2017 Present Illness HPI 66 year old male with hx of DVT and cellulitis of lower extremities, arthritis presented to [facility] with CC on increasing pain in left knee. he can't walk on it any more and its becoming very debilitating. Allergies: Coded Allergies: No Known Allergies (Unverified , 03/08/14) Medication History Scheduled Cephalexin* (Keflex*), 500 MG ORAL EVERY 12 HOURS Duloxetine Hcl* (Cymbalta*), 30 MG ORAL QHS, (Reported) Heparin Sod (Porcine) (Heparin Sodium*), 5,000 UNITS SUBQ EVERY 12 HOURS Ibuprofen (Ibuprofen*), 600 MG ORAL Q6H, (Reported) No Known Medications* (NKM - No Known Medications*), 0 ., (Reported) Polyethylene Glycol 3350* (Miralax*), 17 GM ORAL QHS, (Reported) Scheduled PRN Acetaminophen* (Acetaminophen 325MG Tablet*), 650 MG ORAL Q4H PRN for Mild Pain (Pain Scale 1-3) Duloxetine Hcl* (Cymbalta*), 120 MG ORAL DAILY PRN for verbalization of depression, (Reported) Lorazepam* (Ativan*), 0.5 MG ORAL BID PRN for anxiety or outburst of anger, ( Reported) Mag Hydrox/Al Hydrox/Simeth (Alum-Mag Hydroxide-Simeth Liq), 30 ML PO Q6HR PRN for heartburn, (Reported) Meclizine Hcl* (Meclizine*), 25 MG ORAL THREE TIMES A DAY PRN for for dizziness Ondansetron Odt* (Zofran Odt*), 4 MG ORAL Q8H PRN for Nausea & Vomiting Zolpidem Tartrate* (Ambien*), 10 MG ORAL HS PRN for Insomnia, (Reported) [Vancomycin Hcl], 1 EA MISC DAILY PRN for Per rx protocol Patient History Healthcare decision maker Resuscitation status Full Code Advanced Directive on File Past Medical/Surgical History Past Medical/Surgical History: (1) Intractable pain Review of Systems All Other Systems: negative except mentioned in HPI Physical Exam General Appearance: WD/WN, no apparent distress Lines, tubes and drains: peripheral HEENT: normocephalic, atraumatic Neck: non-tender, normal alignment Respiratory/Chest: chest wall non-tender, lungs clear Breasts: no masses Cardiovascular/Chest: normal peripheral pulses Abdomen: normal bowel sounds, non tender Genitourinary/Rectal: normal genital exam Extremities: normal range of motion Skin Exam: normal pigmentation 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 Height (Feet): 5 Height (Inches): 9.00 Weight (Pounds): 155 Medications Current Medications Medications (Trade) Dose Ordered Sig/Berna Route PRN Reason Start Time Stop Time Status Last Admin Dose Admin Acetaminophen (Tylenol) 650 mg Q4H PRN ORAL Mild Pain (Pain Scale 1-3) 01/17/17 14:45 02/16/17 14:44 Acetaminophen (Tylenol) 650 mg Q4H PRN ORAL fever 01/17/17 14:45 02/16/17 14:44 Al Hydroxide/Mg Hydroxide (Mylanta II) 30 ml Q6H PRN ORAL dyspepsia 01/17/17 14:45 02/16/17 14:44 Dextrose (Dextrose 50%) STAT PRN IV Hypoglycemia 01/17/17 14:45 02/16/17 14:44 Heparin Sodium (Porcine) (Heparin 5000 units/ml) 5,000 units EVERY 12 HOURS SUBQ 01/17/17 21:00 02/16/17 20:59 Lorazepam (Ativan 2mg/ml 1ml) 0.5 mg Q4H PRN IV For Anxiety 01/17/17 14:45 01/24/17 14:44 Meclizine HCl (Antivert) 25 mg TIDPRN PRN ORAL for dizziness 01/17/17 14:45 02/16/17 14:44 Morphine Sulfate (Morphine Sulfate) 2 mg Q4H PRN IVP For Pain 4-6 01/17/17 14:45 01/24/17 14:44 Morphine Sulfate (Morphine Sulfate) 4 mg Q4H PRN IVP For Pain 7-10 01/17/17 14:45 01/24/17 14:44 Ondansetron HCl (Zofran) 4 mg Q6H PRN IVP Nausea & Vomiting 01/17/17 14:45 02/16/17 14:44 Polyethylene Glycol (Miralax) 17 gm HSPRN PRN ORAL Constipation 01/17/17 14:45 02/16/17 14:44 Zolpidem Tartrate (Ambien) 5 mg HSPRN PRN ORAL Insomnia 01/17/17 14:45 01/24/17 14:44 Assessment/Plan Problem List: (1) Knee arthropathy ICD Codes: M17.10 - Unilateral primary osteoarthritis, unspecified knee SNOMED: 294095815 (2) Intractable pain ICD Codes: R52 - Pain, unspecified SNOMED: 54875701 Assessment/Plan ortho evaluation pain control dvtp prophylaxis ESTEE RODRIGUEZ Jan 17, 2017 16:40
[2017-01-17 20:00] VITALS: BP 123/86
[2017-01-17] MEDS: Heparin 5000 units/ml inj SUBQ SCH (21:00)
[2017-01-18] VITALS: BP 137/91
[2017-01-18 04:00] VITALS: BP 140/88
[2017-01-18 07:10] LABS: BASOPHILS % (AUTO) 1.2 % (0.0-2.0); EOSINOPHILS % (AUTO) 4.1 % (0.0-3.0); LYMPHOCYTES % (AUTO) 33.4 % (20.0-45.0); MEAN CORPUSCULAR HEMOGLOBIN 33.3 PG (27.0-31.0); MEAN CORPUSCULAR HGB CONC 35.4 G/DL (32.0-36.0); MEAN CORPUSCULAR VOLUME 94 FL (80-99); MEAN PLATELET VOLUME 7.8 FL (6.5-10.1); MONOCYTES % (AUTO) 7.3 % (1.0-10.0); PLATELET COUNT 147 K/UL (150-450); RED BLOOD COUNT 4.86 M/UL (4.70-6.10); RED CELL DISTRIBUTION WIDTH 11.3 % (11.6-14.8); WHITE BLOOD COUNT 6.4 K/UL (4.8-10.8)
[2017-01-18 07:24] LABS: PROTHROMBIN TIME 10.7 SEC (9.30-11.50)
[2017-01-18 07:30] LABS: ALANINE AMINOTRANSFERASE 22 U/L (3-41); ALBUMIN/GLOBULIN RATIO 1.8 (1.0-2.7); ANION GAP 12 (5-15); ASPARTATE AMINO TRANSFERASE 19 U/L (5-40); CARBON DIOXIDE 24 mEQ/L (20-30); CHLORIDE 103 mEQ/L (98-107); CREATININE 1.2 mg/dL (0.7-1.2); GLOMERULAR FILTRATION RATE > 60 mL/min (>60); HEMOLYSIS 5; POTASSIUM 3.7 mEQ/L (3.4-4.9); SODIUM 139 mEQ/L (135-145); TOTAL PROTEIN 6.6 g/dL (6.6-8.7)
[2017-01-18] MEDS: Heparin 5000 units/ml inj SUBQ SCH ×2 (08:12→20:50)
[2017-01-18 08:18] LABS: CALCIUM 9.1 mg/dL (8.6-10.2)
[2017-01-18 08:20] VITALS: BP 135/90
[2017-01-18 08:36] LABS: MAGNESIUM 1.9 mg/dL (1.7-2.5); PHOSPHORUS 3.8 mg/dL (2.5-4.8)
--- NOTE | 2017-01-18 09:02 | Diagnostic Imaging Report ---
Indication: Left knee pain. Technique: Continuous helical imaging of the left knee was performed in the transaxial plane. Coronal 2-D reformatted images were also generated. Study obtained in a Siemens Sensation [address] total DLP 522 mGycm CTD/vol 0.15, 0.15, 15.26 mGy Comparison: None Findings: There is no evidence of an acute fracture or significant malalignment identified on this examination. The bones are osteopenic. There is moderate to severe tricompartmental narrowing of the joint space with associated osteophyte formation and subchondral sclerosis and cortical irregularity. The findings are consistent with osteoarthritis. There is a joint effusion. Popliteal artery calcification is moderate. Impression: Moderate osteoarthritis of the knee. Small joint effusion. Atherosclerotic vascular disease The CT scanner at [facility] is accredited by the [employer] and the scans are performed using dose optimization techniques as appropriate to a performed exam including Automatic Exposure control.
[2017-01-18 11:42] VITALS: BP 120/80
[2017-01-18 15:39] VITALS: BP 125/80
[2017-01-18] MEDS: Mylanta II UD 30ml ORAL PRN (17:40)
--- NOTE | 2017-01-18 18:37 | Pulmonology Progress Note ---
Assessment/Plan Problems: (1) Knee arthropathy (2) Intractable pain Assessment/Plan ortho evaluation pain management Subjective ROS Limited/Unobtainable: No Constitutional: Reports: no symptoms HEENT: Repors: no symptoms Allergies: Coded Allergies: No Known Allergies (Unverified , 03/08/14) Objective Last 24 Hour Vital Signs Date Time Temp Pulse Resp B/P (MAP) Pulse Ox O2 Delivery O2 Flow Rate FiO2 01/18/17 15:39 97.9 77 19 125/80 95 Room Air 01/18/17 11:42 97.6 84 19 120/80 95 Room Air 01/18/17 08:20 97.4 77 19 135/90 95 Room Air 01/18/17 04:00 97.7 83 20 140/88 94 Bi-pap 01/18/17 00:00 96.8 85 18 137/91 96 Room Air 01/17/17 20:00 98.2 95 18 123/86 20 Room Air Intake and Output 01/18/17 01/19/17 19:00 07:00 Intake Total 520 ml Output Total 450 ml Balance 70 ml Intake Oral 520 ml Output Urine Total 450 ml General Appearance: WD/WN HEENT: normocephalic, atraumatic Respiratory/Chest: lungs clear Cardiovascular: normal peripheral pulses, regular rhythm Abdomen: normal bowel sounds Extremities: no cyanosis 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, no motor/sensory deficits Laboratory Tests 01/18/17 06:00: White Blood Count 6.4, Red Blood Count 4.86, Hemoglobin 16.2, Hematocrit 45.7, Mean Corpuscular Volume 94, Mean Corpuscular Hemoglobin 33.3H, Mean Corpuscular Hemoglobin Concent 35.4, Red Cell Distribution Width 11.3L, Platelet Count 147L , Mean Platelet Volume 7.8, Neutrophils (%) (Auto) 54.0, Lymphocytes (%) (Auto) 33.4, Monocytes (%) (Auto) 7.3, Eosinophils (%) (Auto) 4.1H, Basophils (%) (Auto ) 1.2, Prothrombin Time 10.7, Prothromb Time International Ratio 1.0, Activated Partial Thromboplast Time 26, Sodium Level 139, Potassium Level 3.7, Chloride Level 103, Carbon Dioxide Level 24, Anion Gap 12, Blood Urea Nitrogen 33H, Creatinine 1.2, Estimat Glomerular Filtration Rate > 60, Glucose Level 97, Calcium Level 9.1, Phosphorus Level 3.8, Magnesium Level 1.9, Total Bilirubin 1.0, Aspartate Amino Transf (AST/SGOT) 19, Alanine Aminotransferase (ALT/SGPT) 22, Alkaline Phosphatase 73, Total Protein 6.6, Albumin 4.3, Globulin 2.3, Albumin/Globulin Ratio 1.8, Thyroid Stimulating Hormone (TSH) 2.460 Current Medications Medications (Trade) Dose Ordered Sig/Berna Route PRN Reason Start Time Stop Time Status Last Admin Dose Admin Acetaminophen (Tylenol) 650 mg Q4H PRN ORAL Mild Pain (Pain Scale 1-3) 01/17/17 14:45 02/16/17 14:44 Acetaminophen (Tylenol) 650 mg Q4H PRN ORAL fever 01/17/17 14:45 02/16/17 14:44 Al Hydroxide/Mg Hydroxide (Mylanta II) 30 ml Q6H PRN ORAL dyspepsia 01/17/17 14:45 02/16/17 14:44 01/18/17 17:40 Dextrose (Dextrose 50%) STAT PRN IV Hypoglycemia 01/17/17 14:45 02/16/17 14:44 Heparin Sodium (Porcine) (Heparin 5000 units/ml) 5,000 units EVERY 12 HOURS SUBQ 01/17/17 21:00 02/16/17 20:59 Lorazepam (Ativan 2mg/ml 1ml) 0.5 mg Q4H PRN IV For Anxiety 01/17/17 14:45 01/24/17 14:44 Meclizine HCl (Antivert) 25 mg TIDPRN PRN ORAL for dizziness 01/17/17 14:45 02/16/17 14:44 Morphine Sulfate (Morphine Sulfate) 2 mg Q4H PRN IVP For Pain 4-6 01/17/17 14:45 01/24/17 14:44 Morphine Sulfate (Morphine Sulfate) 4 mg Q4H PRN IVP For Pain 7-10 01/17/17 14:45 01/24/17 14:44 Ondansetron HCl (Zofran) 4 mg Q6H PRN IVP Nausea & Vomiting 01/17/17 14:45 02/16/17 14:44 Polyethylene Glycol (Miralax) 17 gm HSPRN PRN ORAL Constipation 01/17/17 14:45 02/16/17 14:44 Zolpidem Tartrate (Ambien) 5 mg HSPRN PRN ORAL Insomnia 01/17/17 14:45 01/24/17 14:44 ESTEE RODRIGUEZ Jan 18, 2017 18:37
[2017-01-18 20:00] VITALS: BP 122/57
[2017-01-18] MEDS: DULoxetine 30mg cap ORAL SCH (23:30)
[2017-01-19] VITALS: BP 145/96
[2017-01-19 04:00] VITALS: BP 137/94
[2017-01-19] MEDS ORDERED: DULoxetine 30mg cap ORAL PRN (07:30)
[2017-01-19 08:00] VITALS: BP 118/74
[2017-01-19] MEDS: Heparin 5000 units/ml inj SUBQ SCH ×2 (09:00→21:00)
[2017-01-19 12:00] VITALS: BP 126/76
[2017-01-19 16:00] VITALS: BP 127/76
--- NOTE | 2017-01-19 16:31 | Pulmonology Progress Note ---
Assessment/Plan Problems: (1) Knee arthropathy (2) Intractable pain Assessment/Plan ortho evaluation pain management [facility] Subjective ROS Limited/Unobtainable: No Constitutional: Reports: no symptoms HEENT: Repors: no symptoms Respiratory: Reports: no symptoms Allergies: Coded Allergies: No Known Allergies (Unverified , 03/08/14) Objective Last 24 Hour Vital Signs Date Time Temp Pulse Resp B/P (MAP) Pulse Ox O2 Delivery O2 Flow Rate FiO2 01/19/17 16:00 97.3 86 20 127/76 96 Room Air 01/19/17 12:00 97.5 76 20 126/76 95 Room Air 01/19/17 08:00 97.0 86 19 118/74 95 Room Air 01/19/17 04:00 97.5 91 22 137/94 95 Room Air 01/19/17 00:00 97.7 85 21 145/96 94 Room Air 01/18/17 20:00 98.5 108 22 122/57 96 Room Air Intake and Output 01/19/17 01/20/17 19:00 07:00 Intake Total 320 ml Output Total 300 ml Balance 20 ml Intake Oral 320 ml Output Urine Total 300 ml General Appearance: WD/WN HEENT: normocephalic, atraumatic Respiratory/Chest: chest wall non-tender, lungs clear Cardiovascular: normal peripheral pulses, normal rate Abdomen: normal bowel sounds, soft, non tender Genitourinary: normal external genitalia 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 Complete Current Medications Medications (Trade) Dose Ordered Sig/Berna Route PRN Reason Start Time Stop Time Status Last Admin Dose Admin Acetaminophen (Tylenol) 650 mg Q4H PRN ORAL Mild Pain (Pain Scale 1-3) 01/17/17 14:45 02/16/17 14:44 Acetaminophen (Tylenol) 650 mg Q4H PRN ORAL fever 01/17/17 14:45 02/16/17 14:44 Al Hydroxide/Mg Hydroxide (Mylanta II) 30 ml Q6H PRN ORAL dyspepsia 01/17/17 14:45 02/16/17 14:44 01/18/17 17:40 Dextrose (Dextrose 50%) STAT PRN IV Hypoglycemia 10/5/17 14:45 02/16/17 14:44 Duloxetine HCl (Cymbalta) 30 mg QHS ORAL 01/18/17 21:00 02/17/17 20:59 01/18/17 23:30 Duloxetine HCl (Cymbalta) 120 mg DAILY PRN ORAL verbalizing of depression 01/19/17 07:30 02/18/17 07:29 Heparin Sodium (Porcine) (Heparin 5000 units/ml) 5,000 units EVERY 12 HOURS SUBQ 01/17/17 21:00 02/16/17 20:59 Lorazepam (Ativan 2mg/ml 1ml) 0.5 mg Q4H PRN IV For Anxiety 01/17/17 14:45 01/24/17 14:44 Meclizine HCl (Antivert) 25 mg TIDPRN PRN ORAL for dizziness 01/17/17 14:45 02/16/17 14:44 Morphine Sulfate (Morphine Sulfate) 2 mg Q4H PRN IVP For Pain 4-6 01/17/17 14:45 01/24/17 14:44 Morphine Sulfate (Morphine Sulfate) 4 mg Q4H PRN IVP For Pain 7-10 01/17/17 14:45 01/24/17 14:44 Ondansetron HCl (Zofran) 4 mg Q6H PRN IVP Nausea & Vomiting 01/17/17 14:45 02/16/17 14:44 Polyethylene Glycol (Miralax) 17 gm HSPRN PRN ORAL Constipation 01/17/17 14:45 02/16/17 14:44 Zolpidem Tartrate (Ambien) 5 mg HSPRN PRN ORAL Insomnia 01/17/17 14:45 01/24/17 14:44 ESTEE RODRIGUEZ Jan 19, 2017 16:31
[2017-01-19 19:10] VITALS: BP 110/82
[2017-01-19] MEDS: DULoxetine 30mg cap ORAL SCH (21:34)
[2017-01-20 00:11] VITALS: BP 117/90
[2017-01-20 03:50] VITALS: BP 109/81
[2017-01-20 08:00] VITALS: BP 125/85
[2017-01-20] MEDS: Heparin 5000 units/ml inj SUBQ SCH (09:00)
--- NOTE | 2017-01-20 11:39 | Consultation ---
History of Present Illness General Date patient seen: Jan 20, 2017 Present Illness Allergies: Coded Allergies: No Known Allergies (Unverified , 03/08/14) Medication History Scheduled Cephalexin* (Keflex*), 500 MG ORAL EVERY 12 HOURS Duloxetine Hcl* (Cymbalta*), 30 MG ORAL QHS, (Reported) Heparin Sod (Porcine) (Heparin Sodium*), 5,000 UNITS SUBQ EVERY 12 HOURS Ibuprofen (Ibuprofen*), 600 MG ORAL Q6H, (Reported) No Known Medications* (NKM - No Known Medications*), 0 ., (Reported) Polyethylene Glycol 3350* (Miralax*), 17 GM ORAL QHS, (Reported) Scheduled PRN Acetaminophen* (Acetaminophen 325MG Tablet*), 650 MG ORAL Q4H PRN for Mild Pain (Pain Scale 1-3) Duloxetine Hcl* (Cymbalta*), 120 MG ORAL DAILY PRN for verbalization of depression, (Reported) Lorazepam* (Ativan*), 0.5 MG ORAL BID PRN for anxiety or outburst of anger, ( Reported) Mag Hydrox/Al Hydrox/Simeth (Alum-Mag Hydroxide-Simeth Liq), 30 ML PO Q6HR PRN for heartburn, (Reported) Meclizine Hcl* (Meclizine*), 25 MG ORAL THREE TIMES A DAY PRN for for dizziness Ondansetron Odt* (Zofran Odt*), 4 MG ORAL Q8H PRN for Nausea & Vomiting Zolpidem Tartrate* (Ambien*), 10 MG ORAL HS PRN for Insomnia, (Reported) [Vancomycin Hcl], 1 EA MISC DAILY PRN for Per rx protocol Patient History Healthcare decision maker Resuscitation status Full Code Advanced Directive on File Physical Exam Last 24 Hour Vital Signs Date Time Temp Pulse Resp B/P (MAP) Pulse Ox O2 Delivery O2 Flow Rate FiO2 01/20/17 08:00 97.3 88 20 125/85 94 Room Air 01/20/17 03:50 97.9 84 20 109/81 96 Room Air 01/20/17 00:11 96.6 104 20 117/90 98 Room Air 01/19/17 19:10 96.6 106 20 110/82 96 Room Air 01/19/17 16:00 97.3 86 20 127/76 96 Room Air 01/19/17 12:00 97.5 76 20 126/76 95 Room Air Height (Feet): 5 Height (Inches): 9.00 Weight (Pounds): 155 Medications Current Medications Medications (Trade) Dose Ordered Sig/Berna Route PRN Reason Start Time Stop Time Status Last Admin Dose Admin Acetaminophen (Tylenol) 650 mg Q4H PRN ORAL Mild Pain (Pain Scale 1-3) 01/17/17 14:45 02/16/17 14:44 Acetaminophen (Tylenol) 650 mg Q4H PRN ORAL fever 01/17/17 14:45 02/16/17 14:44 Al Hydroxide/Mg Hydroxide (Mylanta II) 30 ml Q6H PRN ORAL dyspepsia 01/17/17 14:45 02/16/17 14:44 01/18/17 17:40 Dextrose (Dextrose 50%) STAT PRN IV Hypoglycemia 01/17/17 14:45 02/16/17 14:44 Duloxetine HCl (Cymbalta) 30 mg QHS ORAL 01/18/17 21:00 02/17/17 20:59 01/19/17 21:34 Duloxetine HCl (Cymbalta) 120 mg DAILY PRN ORAL verbalizing of depression 01/19/17 07:30 02/18/17 07:29 Heparin Sodium (Porcine) (Heparin 5000 units/ml) 5,000 units EVERY 12 HOURS SUBQ 01/17/17 21:00 02/16/17 20:59 Lorazepam (Ativan 2mg/ml 1ml) 0.5 mg Q4H PRN IV For Anxiety 01/17/17 14:45 01/24/17 14:44 Meclizine HCl (Antivert) 25 mg TIDPRN PRN ORAL for dizziness 01/17/17 14:45 02/16/17 14:44 Morphine Sulfate (Morphine Sulfate) 2 mg Q4H PRN IVP For Pain 4-6 01/17/17 14:45 01/24/17 14:44 Morphine Sulfate (Morphine Sulfate) 4 mg Q4H PRN IVP For Pain 7-10 01/17/17 14:45 01/24/17 14:44 Ondansetron HCl (Zofran) 4 mg Q6H PRN IVP Nausea & Vomiting 01/17/17 14:45 02/16/17 14:44 Polyethylene Glycol (Miralax) 17 gm HSPRN PRN ORAL Constipation 01/17/17 14:45 02/16/17 14:44 Zolpidem Tartrate (Ambien) 5 mg HSPRN PRN ORAL Insomnia 01/17/17 14:45 01/24/17 14:44 Assessment/Plan Assessment/Plan (1) Left knee pain (2) Left knee Osteoarthritis seen dictated KELSEY TSE Jan 20, 2017 11:39
[2017-01-20] MEDS: Mylanta II UD 30ml ORAL PRN (11:54)
[2017-01-20 12:00] VITALS: BP 140/84
[2017-01-20 16:00] VITALS: BP 120/79
--- NOTE | 2017-01-20 22:57 | Pulmonology Progress Note ---
Assessment/Plan Problems: (1) Knee arthropathy (2) Intractable pain Assessment/Plan ortho evaluation [facility] Subjective ROS Limited/Unobtainable: No Constitutional: Reports: fatigue, anorexia Neurologic: Reports: weakness Musculoskeletal: Reports: pain, swelling, stiffness Allergies: Coded Allergies: No Known Allergies (Unverified , 03/08/14) Objective Last 24 Hour Vital Signs Date Time Temp Pulse Resp B/P (MAP) Pulse Ox O2 Delivery O2 Flow Rate FiO2 01/20/17 16:00 97.5 83 20 120/79 92 Room Air 01/20/17 12:00 98.2 81 20 140/84 93 Room Air 01/20/17 08:00 97.3 88 20 125/85 94 Room Air 01/20/17 03:50 97.9 84 20 109/81 96 Room Air 01/20/17 00:11 96.6 104 20 117/90 98 Room Air Intake and Output 01/20/17 01/21/17 19:00 07:00 Output Total 300 ml Balance -300 ml Output Urine Total 300 ml General Appearance: no acute distress HEENT: normocephalic, atraumatic, PERRL Respiratory/Chest: chest wall non-tender, lungs clear, normal breath sounds Cardiovascular: normal peripheral pulses, normal rate, regular rhythm, no JVD Abdomen: normal bowel sounds, soft, non tender, no organomegaly, non distended Genitourinary: normal external genitalia Extremities: other - severly hindered movement in both extension and flexion secondary to knee pains bilaterally Skin: no rash, no lesions 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
--- NOTE | 2017-01-21 03:39 | Consultation ---
DATE OF CONSULTATION: 01/20/2017 PAIN MANAGEMENT CONSULTATION CONSULTING PHYSICIAN: Jake Osman M.D. PHYSICIAN FIELD CROP GROWER: Liya Whipple REFERRING PHYSICIAN: Criselda Morejon M.D. CHIEF COMPLAINT: Left knee pain. HISTORY OF PRESENT ILLNESS: This is a 66-year-old male, who is being seen on the Med/Surg floor of [facility] for initial comprehensive pain management consultation. The patient reports he has been having left knee pain since 2008. It is a constant chronic pain, rating 8/10, describing it as a sharp stabbing pain, increased with movement and reduced with Motrin and ibuprofen and Cymbalta, which he is receiving as an outpatient. At this time, the patient was admitted under the care of Dr. Morejon. Due to the left knee pain, a CT scan of the left knee was done upon admission, found to have moderate osteoarthritis of the knee, small joint effusion. At this time, the patient is comfortable and is in no acute distress. PAST MEDICAL HISTORY: Abdominal disorder, anxiety, history of DVTs, and hypertension. SOCIAL HISTORY: Denies smoking tobacco, drinking alcohol, or drug abuse. ALLERGIES: No known drug allergies. MEDICATIONS: Keflex, Cymbalta, heparin, ibuprofen, MiraLAX, Tylenol, Cymbalta, Ativan, meclizine, Zofran, and Ambien. REVIEW OF SYSTEMS: Denies rash, fever, chills, sweating, dizziness, drowsiness, blurred vision, sore throat, or change change in his weight. No shortness of breath, chest pain, palpitations, or cough. No nausea, vomiting, diarrhea, or blood in the stool or urine. No bowel or bladder incontinence. No dysuria. He is complaining of left knee pain. PHYSICAL EXAMINATION: GENERAL: Alert, awake, and oriented. VITAL SIGNS: Blood pressure 225/85, heart rate is 88, oxygen saturation 94%, respiratory rate is 17, and temperature is 97.3 degrees Fahrenheit. HEENT: PERRLA. NECK: Range of motion is full in all directions. No tenderness. No adenopathy. LUNGS: Lungs are clear. HEART: Regular. ABDOMEN: Benign. BACK: Range of motion is full on flexion and extension. No tenderness to paraspinal muscles, trapezius, or rhomboid muscles. EXTREMITIES: Upper extremity range of motion is full in all directions. Motor is intact. No cyanosis. No clubbing. No edema. Sensory is intact. Reflexes are not obtainable. No adenopathy. Lower extremity range of motion is decreased due to the patient's condition. Motor is intact. No cyanosis. No clubbing. Sensory is reduced. Reflexes are not obtainable. No adenopathy. ASSESSMENT AND PLAN: This is a 66-year-old male with left knee pain, left knee osteoarthritis. The patient will be continued on Cymbalta. We will discontinue the morphine and start the patient on ibuprofen 600 mg tablet every eight hours as needed for pain. The patient was discussed with Dr. Osman and Dr. Osman concurred. We will follow the patient. Thank you very much for the courtesy of this consultation. Jake Osman M.D. VARUN Whipple DR: RUPAL JOB#: [id number] CC:
--- NOTE | 2017-01-21 09:01 | Consultation ---
DATE OF CONSULTATION: 01/18/2017 CONSULTING PHYSICIAN: Kevin Wilson M.D. REFERRING PHYSICIAN: Criselda Morejon M.D. CHIEF COMPLAINT: Bilateral knee pain. HISTORY OF PRESENT ILLNESS: The patient is a 66-year-old gentleman who is admitted for generalized weakness. He has a chronic history of bilateral knee pain. No specific injury or fall that he can recall. He has difficulty ambulating. PAST MEDICAL HISTORY: Reviewed from the intake chart. PAST SURGICAL HISTORY: Reviewed from the intake chart. MEDICATIONS: Reviewed from the intake chart. PHYSICAL EXAMINATION: Right knee examination shows moderate effusion, pain along the medial joint line. No ecchymosis. Posterior calf is soft. Left knee examination shows pain along the medial joint line and moderate effusion. Range of motion is -5 to 120. IMAGING STUDIES: CT scan of the right and left leg showed advanced osteoarthritis of both the right and left knee. ASSESSMENT: Bilateral knee osteoarthritis. DISCUSSION: At this point, he has pretty advanced arthritis in both the right and left knee. Ultimately, the only treatment for this is total knee replacement, but he is a poor surgical candidate at the present time. He has got poor dentition. Additionally, from a medical point of view, he needs to be better optimized to handle the postoperative rehabilitation protocol. At this point, there is not anything acute that needs to be done. He can get some anti-inflammatories. If he still has issues, may be intra-articular injection or operation may be reasonable. Kevin Wilson M.D. DR: COLLEEN JOB#: [id number] CC:
--- NOTE | 2017-01-22 11:52 | Discharge Summary ---
Discharge Summary Hospital Course Date of Admission Jan 17, 2017 at 13:22 Date of Discharge Jan 20, 2017 at 16:15 Admitting Diagnosis HPI Lamine Kumar is a 66 year old male who was admitted on Jan 17, 2017 at 13:22 for General Weakness Hospital Course dc summary #[id number] Discharge Medications New Medications: Ibuprofen* (Motrin*) 600 Mg Tablet 600 MG ORAL Q8H PRN, #30 TAB 0 Refills Continued Medications: Acetaminophen* (Acetaminophen 325MG Tablet*) 325 Mg Tablet 650 MG ORAL Q4H PRN for Mild Pain (Pain Scale 1-3), #30 TAB Duloxetine Hcl* (Cymbalta*) 30 Mg Capsule.dr 30 MG ORAL QHS, CAP Lorazepam* (Ativan*) 0.5 Mg Tablet 0.5 MG ORAL BID PRN for anxiety or outburst of anger, TAB Meclizine Hcl* (Meclizine*) 25 Mg Tablet 25 MG ORAL THREE TIMES A DAY PRN for for dizziness, #12 TAB Ondansetron Odt* (Zofran Odt*) 4 Mg Tab.rapdis 4 MG ORAL Q8H PRN for Nausea & Vomiting, #6 TAB 0 Refills Polyethylene Glycol 3350* (Miralax*) 17 Gm Powd.pack 17 GM ORAL QHS for Constipation, PACKET Zolpidem Tartrate* (Ambien*) 10 Mg Tablet 10 MG ORAL HS PRN for Insomnia, TAB Discontinued Medications: Ibuprofen (Ibuprofen*) 200 Mg Tablet 600 MG ORAL Q6H for Pain Scale (3-5), #30 TAB 0 Refills Discharge Condition Upon Discharge: stable Discharge Disposition Patient was discharged to SNF/Subacute Facility(03) Discharge Diagnoses: Discharge Instructions Discharge Instructions Special Instructions I have been assigned to complete a D/C Summary on this account. I was not involved in the patient management Maribel Marquez NP ([place]te[place]) Jan 22, 2017 11:52
[2017-01-22] MEDS ORDERED: IBUPROFEN600 MG ORAL (11:53)
--- NOTE | 2017-01-23 05:24 | Discharge Summary 2 SIG ---
DATE OF ADMISSION: 01/17/2017 DATE OF DISCHARGE: 01/20/2017 CONSULTANTS: 1. Jake Osman M.D., Pain specialist. 2. Kevin Wilson M.D., Orthopedic surgeon. BRIEF HOSPITAL STAY: 66 years old male with history of DVT, lower extremity cellulitis, and arthritis, presented to [facility] with chief complaint of increased bilateral knee pain, worse on the left knee. He stated that he was unable to ambulate and was becoming more debilitating. The patient was admitted to medical/surgical floor for further management. CT of the left knee revealed no evidence of acute fracture or significant misalignment, however demonstrated moderate to severe tricompartmental narrowing of the joint space with associated osteophyte formation and subchondral sclerosis and cortical irregularity. Findings were consistent with advanced osteoarthritis. There was a small joint effusion and moderate popliteal artery calcification. Orthopedic surgeon seen and evaluated the patient and closely reviewed imaging. Per orthopedic surgeon, the patient at this time was not a good candidate for surgery. The patient had advanced osteoarthritis of the left knee and will ultimately need total knee replacement, however, initially he should be optimized to handle the postoperative rehabilitation. He recommended pain management with anti-inflammatory medication. If pain management with a above named medications proved not to be not effective, he recommend to try intra-articular injection. After optimization, operation would be reasonable. Pain specialist followed the patient. Pain regimen was optimized. The patient was started on nonsteroid anti-inflammatory on as needed basis. The patient was continued on Cymbalta. The patient was stable for discharge. DISCHARGE DIAGNOSES: 1. Bilateral knee arthropathy with intractable pain, left more than right. 2. Bilateral knee advanced osteoarthritis. DISCHARGE MEDICATIONS: See medication reconciliation list. DISCHARGE INSTRUCTIONS: The patient was discharged to long term facility. Follow up with medical doctor at the facility. Criselda Morejon M.D. I have been assigned to dictate discharge summary on this account and I was not involved in the patient's management. Maribel Marquez ([facility] Center[facility]nie N.PDon DR: NATE JOB#: [id number] CC: ROSANNA
== END 2017-01-20 16:15 | DRG 554 ==
LOC: SDSOVERFLO 12:00 → UNDOADMIN 12:00 → 4E 01-17 13:22
DX: M17.0 Bilateral primary osteoarthritis of knee (principal); I10 Essential (primary) hypertension; F41.9 Anxiety disorder, unspecified; Z86.718 Personal history of other venous thrombosis and embolism
CPT/HCPCS: 36415; 80053; 83735; 84100; 84443; 85025; 85610; 85730; 87081

== ENCOUNTER 2017-03-29 14:54 | Emergency (ER) | payer MEDICARE, MEDICAID ==
[~2017-03-29] VITALS: Ht 175.3 cm; Wt 72.6 kg
[~2017-03-29 14:54] MED LIST changes: +ALUM-MAG HYDRO360 ML PO; +AMBIEN10 M1 ORAL; +ATIVAN0.5 MG ORAL; +CYMBALTA30 MG ORAL; +CYMBALTA60 MG ORAL; +IBUPROFEN200 MG ORAL; +IBUPROFEN600 MG ORAL; +MIRALAX17 G2 ORAL
--- NOTE | 2017-03-29 15:17 | Emergency Room Report ---
History of Present Illness General Chief Complaint: Pain Source: Patient Present Illness HPI Patient is a 66 year-old male presented after increased dizziness as well as a left lower extremity pain. The patient reported having feeling of near- syncope. He reports having prior left knee surgery. [facility]. History is markedly limited by patient's poor historian Allergies: Coded Allergies: No Known Allergies (Unverified , 03/08/14) Patient History Past Medical History: see triage record Reviewed Nursing Documentation: PMH: Agreed, PSxH: Agreed Nursing Documentation-PMH Past Medical History: No History, Except For Hx Hypertension: Yes - muscle weakness, osteoarthritis (left knee) Hx Cancer: No Hx Gastrointestinal Problems: Yes - heartburn Hx Weakness: Yes - muscle weakness Review of Systems All Other Systems: negative except mentioned in HPI Physical Exam Vital Signs Date Time Temp Pulse Resp B/P (MAP) Pulse Ox O2 Delivery O2 Flow Rate FiO2 03/29/17 14:49 97.9 106 16 143/89 94 Room Air Sp02 EP Interpretation: reviewed, normal General Appearance: normal inspection, well appearing, no apparent distress, alert, GCS 15 Head: atraumatic ENT: normal ENT inspection, hearing grossly normal, normal voice Neck: normal inspection, full range of motion, supple, no bony tend Respiratory: normal inspection, lungs clear, normal breath sounds, no respiratory distress, no retraction, no wheezing Cardiovascular #1: regular rate, rhythm, no edema Gastrointestinal: normal inspection, normal bowel sounds, non tender, soft, no guarding, no hernia Genitourinary: no CVA tenderness Musculoskeletal: normal inspection, back normal, normal range of motion Neurologic: normal inspection, alert, responsive, speech normal Psychiatric: normal inspection, judgement/insight normal, mood/affect normal Skin: normal inspection, normal color, no rash Medical Decision Making Diagnostic Impression: Primary Impression: Pedal edema Additional Impression: Arthritis ER Course Patient is a 66-year-old male who presented after increased pedal edema. Differential diagnosis included but was not limited to fracture, contusion, renal stone, vascular insufficiency, aortic aneurysm, cellulitis.Because of complexity of patient's case laboratory testing and imaging studies were ordered. EKG interpreted by me showed normal sinus rhythm with a rate of [address] or T wave changes. QTC was noted be slightly prolonged at 484Duplex Ultrasound of the left lower extremity showed no evidence of deep venous thrombosis. The patient was noted to have unremarkable lab testing. Patient appears to be mildly dehydrated. Patient tolerated oral fluids.The patient is advised to follow up with primary care doctor in 1-2 days. Patient is advised to return if any worsening condition or if any changes in status that are concerning. This report is dictated with [employer] scaler software which may occasionally lead to discrepancies related to use of this software. Labs Test 03/29/17 16:00 White Blood Count 6.0 K/UL (4.8-10.8) Red Blood Count 5.37 M/UL (4.70-6.10) Hemoglobin 16.5 G/DL (14.2-18.0) Hematocrit 49.9 % (42.0-52.0) Mean Corpuscular Volume 93 FL (80-99) Mean Corpuscular Hemoglobin 30.7 PG (27.0-31.0) Mean Corpuscular Hemoglobin Concent 33.1 G/DL (32.0-36.0) Red Cell Distribution Width 12.3 % (11.6-14.8) Platelet Count 152 K/UL (150-450) Mean Platelet Volume 8.4 FL (6.5-10.1) Neutrophils (%) (Auto) 65.6 % (45.0-75.0) Lymphocytes (%) (Auto) 24.0 % (20.0-45.0) Monocytes (%) (Auto) 6.7 % (1.0-10.0) Eosinophils (%) (Auto) 2.3 % (0.0-3.0) Basophils (%) (Auto) 1.4 % (0.0-2.0) Prothrombin Time 10.4 SEC (9.30-11.50) Prothromb Time International Ratio 1.0 (0.9-1.1) Activated Partial Thromboplast Time 25 SEC (23-33) Last Vital Signs Date Time Temp Pulse Resp B/P (MAP) Pulse Ox O2 Delivery O2 Flow Rate FiO2 03/29/17 14:49 97.9 106 16 143/89 94 Room Air Status: unchanged Disposition: ADMITTED INPATIENT Condition: Serious Kennedy Darby Mar 29, 2017 15:17
[2017-03-29 15:18] VITALS: BP 143/89
[2017-03-29 16:19] LABS: BASOPHILS % (AUTO) 1.4 % (0.0-2.0); EOSINOPHILS % (AUTO) 2.3 % (0.0-3.0); MEAN CORPUSCULAR HEMOGLOBIN 30.7 PG (27.0-31.0); MEAN CORPUSCULAR HGB CONC 33.1 G/DL (32.0-36.0); MEAN CORPUSCULAR VOLUME 93 FL (80-99); MEAN PLATELET VOLUME 8.4 FL (6.5-10.1); MONOCYTES % (AUTO) 6.7 % (1.0-10.0); NEUTROPHILS % (AUTO) 65.6 % (45.0-75.0); PLATELET COUNT 152 K/UL (150-450); RED BLOOD COUNT 5.37 M/UL (4.70-6.10); RED CELL DISTRIBUTION WIDTH 12.3 % (11.6-14.8)
[2017-03-29 16:33] LABS: PROTHROMBIN TIME 10.4 SEC (9.30-11.50)
[2017-03-29 16:36] LABS: ANION GAP 9 mmol/L (5-15); CARBON DIOXIDE 24 MMOL/L (21-32); CHLORIDE 106 MMOL/L (98-107); CREATININE 1.5 MG/DL (0.55-1.30); GLOMERULAR FILTRATION RATE 46.5 mL/min (>60); POTASSIUM 3.7 MMOL/L (3.5-5.1); SODIUM 138 MMOL/L (136-145)
[2017-03-29 16:42] VITALS: BP 138/87
[2017-03-29 16:44] LABS: ALANINE AMINOTRANSFERASE 27 U/L (12-78); ASPARTATE AMINO TRANSFERASE 21 U/L (15-37); TOTAL PROTEIN 7.3 G/DL (6.4-8.2)
--- NOTE | 2017-03-29 16:49 | Diagnostic Imaging Report ---
Indication: Reason For Exam: PAIN Technique: 3 views of the left knee Comparison: CT scan 01/17/2017 Findings: There is medial, lateral, and patellofemoral compartmental degenerative narrowing. No acute fractures. No dislocations. No suprapatellar effusion. There are vascular calcifications. Findings are similar to those demonstrated on the prior CT Impression: Degenerative changes No acute bony trauma
[2017-03-29 18:06] VITALS: BP 144/89
[2017-03-29 20:10] VITALS: BP 123/82
[2017-03-29 22:30] VITALS: BP_SYST 123; BP_SYST 140; BP_DIAS 75; BP_DIAS 82
--- NOTE | 2017-03-31 14:30 | Cardiology Report ---
APPROVED REPORT EKG Measurement Heart [id number] Poor data quality, interpretation may be adversely affected Normal sinus rhythm Minimal voltage criteria for LVH, may be normal variant Possible Anteroseptal infarct, age undetermined Abnormal ECG
--- NOTE | 2017-04-11 00:11 | Diagnostic Imaging Report ---
APPROVED REPORT CPT Code: 94962 Present Symptoms Lower Extremity Pain: Left LEFT LEG: Venous imaging reveals a patent deep venous system. There is no evidence of thrombus within the femoral, popliteal or tibial segments. The greater saphenous vein is also within normal limits. Doppler indicates normal spontaneous flow within these segments.
== END 2017-03-29 22:51 ==
LOC: EDBD 14:54 → EMR 15:27
DX: R60.0 Localized edema (principal); M17.12 Unilateral primary osteoarthritis, left knee; R42 Dizziness and giddiness
CPT/HCPCS: 36415; 80053; 83880; 84484; 85025; 85379; 85610; 85730; 86850; 86900; 86901; 93005; 93971; 99285

== ENCOUNTER 2017-07-03 23:30 | Inpatient (IN) | payer OTHER, MEDICAID ==
[~2017-07-03] VITALS: Ht 172.7 cm; Wt 74.8 kg
[2017-07-04 00:15] VITALS: BP 139/78
[2017-07-04] MEDS ORDERED: Cefepime HCl 2 GM in NS 110 ML IV STA (00:27)
[2017-07-04] MEDS ORDERED: Vancomycin 1 GM in NS 275 ML IV ONE (00:30)
--- NOTE | 2017-07-04 01:25 | Emergency Room Report ---
History of Present Illness General Chief Complaint: General Complaint Source: Patient Present Illness HPI Patient presents with worsened infections in both his legs. Set up problem with cellulitis in the past. They've never been this severe. He says his draining pus at this time. The pain is also out of control. He denies any fevers or chills. He does feel weakness. He was just seen by physicians at [facility]. They told him that they don't take care of cellulitis and did not admit him to the hospital. He was seen there for 4 hours yesterday. The wounds were re-dressed. He rates the pain in his legs as 10/10, burning aching, constant and worse when standing, not radiating. The patient denies any chest pain, cough, nausea vomiting. He does have loose stools. Denies dysuria. Denies SI. States allergic "to women". The patient chews tobacco. He was admitted in 2016 for DVT. He has osteoarthritis. Allergies: Coded Allergies: No Known Allergies (Unverified , 03/08/14) Patient History Past Medical History: see triage record Social History: Reports: smoking - chewing tobacco use; Denies: drug use Social History Narrative homeless, though lists apartment Reviewed Nursing Documentation: PMH: Agreed; PSxH: Agreed Nursing Documentation-PMH Hx Hypertension: Yes - muscle weakness, osteoarthritis (left knee) Hx Cancer: No Hx Gastrointestinal Problems: Yes - heartburn Hx Weakness: Yes - muscle weakness Review of Systems All Other Systems: negative except mentioned in HPI Physical Exam Vital Signs Date Time Temp Pulse Resp B/P (MAP) Pulse Ox O2 Delivery O2 Flow Rate FiO2 07/03/17 23:49 98.5 102 18 139/78 98 Room Air 98.4 Sp02 EP Interpretation: reviewed, normal General Appearance: well appearing, no apparent distress, GCS 15 Head: normocephalic Eyes: bilateral eye normal inspection, bilateral eye PERRL ENT: moist mucus membranes - chewing tobacco on lips, poor dentition Neck: supple Respiratory: lungs clear, normal breath sounds Cardiovascular #1: regular rate, rhythm Cardiovascular #2: 2+ radial (R) Gastrointestinal: normal inspection, normal bowel sounds, non tender, no mass, non-distended Musculoskeletal: back normal, gait/station normal, normal range of motion, calf tenderness, Tao's Sign negative, swelling - blateral LE Neurologic: alert, oriented x3, grossly normal Psychiatric: depressed affect Skin: warm/dry, other - bilateral erythema LE with draining open lesions, some reyes crusting Medical Decision Making Diagnostic Impression: Primary Impression: Cellulitis Qualified Codes: L03.119 - Cellulitis of unspecified part of limb Additional Impressions: Urinary tract infection Qualified Codes: N30.00 - Acute cystitis without hematuria Renal insufficiency Elevated liver function tests ER Course The patient presents with worsened infection of his lower extremities. This appears to be acute on chronic disease. He has a history of cellulitis in the past. Differential also includes DVT. Clinically my suspicion is low for DVT. The patient needs workup with CBC, electrolytes, blood cultures her EKG, chest x-ray and urinalysis. The patient will receive gentle IV hydration as he has edema. In addition to that he will receive antibiotics IV and analgesia. EKG is without injury. Chest x-ray shows tortuous aorta and cardiomegaly. Laboratory is significant for elevated white count with normal H&H. Elevated LFTs and renal insufficiency. (LFTs had been elevated in 2017, but not as severe.) Improved with treatment, but still needs continued antibiotics and wound care. Admit Med Dr. Morejon. Social service consult also ordered. Laboratory Tests Test 07/04/17 01:10 07/04/17 02:50 White Blood Count 3.5 K/UL (4.8-10.8) L Red Blood Count 4.41 M/UL (4.70-6.10) L Hemoglobin 13.6 G/DL (14.2-18.0) L Hematocrit 40.4 % (42.0-52.0) L Mean Corpuscular Volume 92 FL (80-99) Mean Corpuscular Hemoglobin 30.9 PG (27.0-31.0) Mean Corpuscular Hemoglobin Concent 33.7 G/DL (32.0-36.0) Red Cell Distribution Width 12.4 % (11.6-14.8) Platelet Count 117 K/UL (150-450) L Mean Platelet Volume 9.3 FL (6.5-10.1) Neutrophils (%) (Auto) 69.6 % (45.0-75.0) Lymphocytes (%) (Auto) 14.8 % (20.0-45.0) L Monocytes (%) (Auto) 14.3 % (1.0-10.0) H Eosinophils (%) (Auto) 0.0 % (0.0-3.0) Basophils (%) (Auto) 1.2 % (0.0-2.0) Prothrombin Time 10.8 SEC (9.30-11.50) Prothrombin Time INR 1.0 (0.9-1.1) PTT 26 SEC (23-33) Sodium Level 139 MMOL/L (136-145) Potassium Level 3.9 MMOL/L (3.5-5.1) Chloride Level 104 MMOL/L (98-107) Carbon Dioxide Level 27 MMOL/L (21-32) Anion Gap 8 mmol/L (5-15) Blood Urea Nitrogen 31 mg/dL (7-18) H Creatinine 1.6 MG/DL (0.55-1.30) H Estimate Glomerular Filtration Rate 43.1 mL/min (>60) Glucose Level 88 MG/DL (74-106) Lactic Acid Level 1.20 mmol/L (0.66-2.22) Calcium Level 8.3 MG/DL (8.5-10.1) L Total Bilirubin 3.5 MG/DL (0.2-1.0) H Direct Bilirubin 2.1 MG/DL (0.0-0.3) H Aspartate Amino Transferase (AST) 93 U/L (15-37) H Alanine Aminotransferase (ALT) 59 U/L (12-78) Alkaline Phosphatase 203 U/L (46-116) H Total Creatine Kinase 831 U/L (26-308) H Troponin I 0.007 ng/mL (0.000-0.056) Pro-B-Type Natriuretic Peptide 367 pg/mL (0-125) H Total Protein 7.2 G/DL (6.4-8.2) Albumin 3.4 G/DL (3.4-5.0) Globulin 3.8 g/dL Albumin/Globulin Ratio 0.9 (1.0-2.7) L Urine Color Yellow Urine Appearance Clear Urine pH 6.0 (4.5-8.0) Urine Specific [place] 1.020 (1.005-1.035) Urine Protein 2+ (NEGATIVE) H Urine Glucose (UA) Negative (NEGATIVE) Urine Ketones Negative (NEGATIVE) Urine Occult Blood 2+ (NEGATIVE) H Urine Nitrite Negative (NEGATIVE) Urine Bilirubin 2+ (NEGATIVE) H Urine Ictotest Positive Urine Urobilinogen 12 MG/DL (0.0-1.0) H Urine Leukocyte Esterase Negative (NEGATIVE) Urine RBC 2-4 /HPF (0 - 0) H Urine WBC 5-10 /HPF (0 - 0) H Urine Squamous Epithelial Cells Few /LPF (NONE/OCC) Urine Bacteria None /HPF (NONE) EKG Diagnostic Results Rate: normal Rhythm: NSR ST Segments: no acute changes Rhythm Strip Diag. Results EP Interpretation: yes Rhythm: NSR, no PVC's, no ectopy Chest X-Ray Diagnostic Results Chest X-Ray Diagnostic Results : Chest X-Ray Ordered: Yes # of Views/Limited/Complete: 1 View Indication: Other EP Interpretation: Yes Interpretation: no consolidation, no effusion, no pneumothorax, other - tortuous aorta, sl cardiomegally Impression: Other Electronically Signed by: Electronically signed by Jovanny West MD Last Vital Signs Date Time Temp Pulse Resp B/P (MAP) Pulse Ox O2 Delivery O2 Flow Rate FiO2 07/04/17 02:14 97.0 88 13 123/74 97 Room Air 97.0 Status: improved Disposition: ADMITTED INPATIENT Condition: Serious Referrals: NOT CHOSEN SVETLANA/,REFERRING (PCP) Jovanny West M.D. Jul 04, 2017 01:25
[2017-07-04] MEDS ORDERED: Cefepime 2gm ONE (01:26)
[2017-07-04] MEDS ORDERED: NKM (01:44)
[2017-07-04 01:49] LABS: BASOPHILS % (AUTO) 1.2 % (0.0-2.0); HEMATOCRIT 40.4 % (42.0-52.0); HEMOGLOBIN 13.6 G/DL (14.2-18.0); LYMPHOCYTES % (AUTO) 14.8 % (20.0-45.0); MEAN CORPUSCULAR VOLUME 92 FL (80-99); MONOCYTES % (AUTO) 14.3 % (1.0-10.0); NEUTROPHILS % (AUTO) 69.6 % (45.0-75.0); PLATELET COUNT 117 K/UL (150-450); RED BLOOD COUNT 4.41 M/UL (4.70-6.10); RED CELL DISTRIBUTION WIDTH 12.4 % (11.6-14.8); WHITE BLOOD COUNT 3.5 K/UL (4.8-10.8)
[2017-07-04 02:00] LABS: ANION GAP 8 mmol/L (5-15); BLOOD UREA NITROGEN 31 mg/dL (7-18); CALCIUM 8.3 MG/DL (8.5-10.1); CARBON DIOXIDE 27 MMOL/L (21-32); CHLORIDE 104 MMOL/L (98-107); CREATININE 1.6 MG/DL (0.55-1.30); POTASSIUM 3.9 MMOL/L (3.5-5.1); SODIUM 139 MMOL/L (136-145)
[2017-07-04 02:14] VITALS: BP 123/74
[2017-07-04 02:16] LABS: ALANINE AMINOTRANSFERASE 59 U/L (12-78); ALBUMIN 3.4 G/DL (3.4-5.0); ALBUMIN/GLOBULIN RATIO 0.9 (1.0-2.7); ALKALINE PHOSPHATASE 203 U/L (46-116); ASPARTATE AMINO TRANSFERASE 93 U/L (15-37); BILIRUBIN,TOTAL 3.5 MG/DL (0.2-1.0); CREATINE KINASE 831 U/L (26-308)
[2017-07-04 02:30] LABS: BILIRUBIN,DIRECT 2.1 MG/DL (0.0-0.3)
[2017-07-04] MEDS ORDERED: Vancomycin 1gm inj IVPB ONE (03:43)
[2017-07-04 05:15] LABS: APPEARANCE,URINE CLEAR; COLOR,URINE YELLOW
[2017-07-04 05:16] LABS: BILIRUBIN, URINE 2+ (NEGATIVE); GLUCOSE, URINE (UA) NEGATIVE (NEGATIVE); KETONES,URINE NEGATIVE (NEGATIVE); LEUKOCYTE ESTERASE ,URINE NEGATIVE (NEGATIVE); NITRITE,URINE NEGATIVE (NEGATIVE); PROTEIN,URINE 2+ (NEGATIVE); UROBILINOGEN,URINE 12 MG/DL (0.0-1.0)
[2017-07-04 05:40] VITALS: BP 118/70
[2017-07-04 07:31] VITALS: BP 128/71
--- NOTE | 2017-07-04 09:53 | Diagnostic Imaging Report ---
Indication: Chest pain Technique: One view of the chest Comparison: 05/02/2016 Findings: Lungs and pleural spaces are clear. The heart size is upper limits of normal. Aorta is tortuous ectatic and calcified. Right chest pacemaker is again demonstrated. No significant interim change Impression: No acute process This agrees with the preliminary interpretation provided by the emergency room physician
[2017-07-04 12:00] VITALS: BP 117/81
[2017-07-04] MEDS ORDERED: Miralax 17gm pkt ORAL PRN (14:00)
[2017-07-04] MEDS ORDERED: LORazepam 0.5mg tab ORAL PRN (14:30)
[2017-07-04] MEDS ORDERED: Nitroglycerin Subl 0.4mg tab SL PRN (14:30)
[2017-07-04] MEDS ORDERED: Albuterol/Ipratropium 3ml neb HHN PRN (15:00)
--- NOTE | 2017-07-04 15:11 | History and Physical ---
History of Present Illness General Reason for Hospitalization: General Complaint Present Illness Allergies: Coded Allergies: No Known Allergies (Unverified , 03/08/14) Medication History Scheduled Duloxetine Hcl* (Cymbalta*), 30 MG ORAL QHS, (Reported) Heparin Sod (Porcine) (Heparin Sodium*), 5,000 UNITS SUBQ EVERY 12 HOURS No Known Medications* (NKM - No Known Medications*), 0 ., (Reported) No Known Medications* (NKM - No Known Medications*), 0 ., (Reported) Polyethylene Glycol 3350* (Miralax*), 17 GM ORAL QHS, (Reported) Scheduled PRN Acetaminophen* (Acetaminophen 325MG Tablet*), 650 MG ORAL Q4H PRN for Mild Pain (Pain Scale 1-3) Duloxetine Hcl* (Cymbalta*), 60 MG ORAL DAILY PRN for verbalization of depression, (Reported) Ibuprofen* (Motrin*), 600 MG ORAL Q8H PRN Lorazepam* (Ativan*), 0.5 MG ORAL BID PRN for anxiety or outburst of anger, ( Reported) Mag Hydrox/Al Hydrox/Simeth (Alum-Mag Hydroxide-Simeth Liq), 30 ML PO Q6HR PRN for heartburn, (Reported) Meclizine Hcl* (Meclizine*), 25 MG ORAL THREE TIMES A DAY PRN for for dizziness Ondansetron Odt* (Zofran Odt*), 4 MG ORAL Q8H PRN for Nausea & Vomiting Zolpidem Tartrate* (Ambien*), 10 MG ORAL HS PRN for Insomnia, (Reported) [Vancomycin Hcl], 1 EA MISC DAILY PRN for Per rx protocol Patient History Healthcare decision maker Resuscitation status Advanced Directive on File Physical Exam Last 24 Hour Vital Signs Date Time Temp Pulse Resp B/P (MAP) Pulse Ox O2 Delivery O2 Flow Rate FiO2 07/04/17 12:00 98.7 81 20 117/81 99 Room Air 98.7 07/04/17 08:00 97.4 72 15 128/71 98 Room Air 07/04/17 07:31 97.4 72 15 128/71 98 Room Air 97.4 07/04/17 05:40 79 20 118/70 99 Room Air 07/04/17 02:14 97.0 88 13 123/74 97 Room Air 97.0 07/04/17 00:15 98.4 102 18 139/78 98 Room Air 98.4 07/03/17 23:49 98.5 102 18 139/78 98 Room Air 98.4 Intake and Output 07/03/17 07/04/17 19:00 07:00 Intake Total 110 ml Balance 110 ml Intake Oral 0 ml IV Total 110 ml Laboratory Tests Test 07/04/17 01:10 07/04/17 02:50 White Blood Count 3.5 K/UL (4.8-10.8) L Red Blood Count 4.41 M/UL (4.70-6.10) L Hemoglobin 13.6 G/DL (14.2-18.0) L Hematocrit 40.4 % (42.0-52.0) L Mean Corpuscular Volume 92 FL (80-99) Mean Corpuscular Hemoglobin 30.9 PG (27.0-31.0) Mean Corpuscular Hemoglobin Concent 33.7 G/DL (32.0-36.0) Red Cell Distribution Width 12.4 % (11.6-14.8) Platelet Count 117 K/UL (150-450) L Mean Platelet Volume 9.3 FL (6.5-10.1) Neutrophils (%) (Auto) 69.6 % (45.0-75.0) Lymphocytes (%) (Auto) 14.8 % (20.0-45.0) L Monocytes (%) (Auto) 14.3 % (1.0-10.0) H Eosinophils (%) (Auto) 0.0 % (0.0-3.0) Basophils (%) (Auto) 1.2 % (0.0-2.0) Prothrombin Time 10.8 SEC (9.30-11.50) Prothromb Time International Ratio 1.0 (0.9-1.1) Activated Partial Thromboplast Time 26 SEC (23-33) Sodium Level 139 MMOL/L (136-145) Potassium Level 3.9 MMOL/L (3.5-5.1) Chloride Level 104 MMOL/L (98-107) Carbon Dioxide Level 27 MMOL/L (21-32) Anion Gap 8 mmol/L (5-15) Blood Urea Nitrogen 31 mg/dL (7-18) H Creatinine 1.6 MG/DL (0.55-1.30) H Estimat Glomerular Filtration Rate 43.1 mL/min (>60) Glucose Level 88 MG/DL (74-106) Lactic Acid Level 1.20 mmol/L (0.66-2.22) Calcium Level 8.3 MG/DL (8.5-10.1) L Total Bilirubin 3.5 MG/DL (0.2-1.0) H Direct Bilirubin 2.1 MG/DL (0.0-0.3) H Aspartate Amino Transf (AST/SGOT) 93 U/L (15-37) H Alanine Aminotransferase (ALT/SGPT) 59 U/L (12-78) Alkaline Phosphatase 203 U/L (46-116) H Total Creatine Kinase 831 U/L (26-308) H Troponin I 0.007 ng/mL (0.000-0.056) Pro-B-Type Natriuretic Peptide 367 pg/mL (0-125) H Total Protein 7.2 G/DL (6.4-8.2) Albumin 3.4 G/DL (3.4-5.0) Globulin 3.8 g/dL Albumin/Globulin Ratio 0.9 (1.0-2.7) L Urine Color Yellow Urine Appearance Clear Urine pH 6.0 (4.5-8.0) Urine Specific [place] 1.020 (1.005-1.035) Urine Protein 2+ (NEGATIVE) H Urine Glucose (UA) Negative (NEGATIVE) Urine Ketones Negative (NEGATIVE) Urine Occult Blood 2+ (NEGATIVE) H Urine Nitrite Negative (NEGATIVE) Urine Bilirubin 2+ (NEGATIVE) H Urine Ictotest Positive Urine Urobilinogen 12 MG/DL (0.0-1.0) H Urine Leukocyte Esterase Negative (NEGATIVE) Urine RBC 2-4 /HPF (0 - 0) H Urine WBC 5-10 /HPF (0 - 0) H Urine Squamous Epithelial Cells Few /LPF (NONE/OCC) Urine Bacteria None /HPF (NONE) Height (Feet): 5 Height (Inches): 3.00 Weight (Pounds): 165 Medications Current Medications Medications (Trade) Dose Ordered Sig/Berna Route PRN Reason Start Time Stop Time Status Last Admin Dose Admin Acetaminophen (Tylenol) 650 mg Q4H PRN ORAL fever>100.5 07/04/17 14:30 08/03/17 14:29 Albuterol/ Ipratropium (Albuterol/ Ipratropium) 3 ml Q4H PRN HHN Shortness of Breath 07/04/17 15:00 07/09/17 14:59 Cefepime HCl 2 gm/ Dextrose 110 ml @ 220 mls/hr Q24H IV 07/04/17 21:00 07/11/17 20:59 Dextrose (Dextrose 50%) STAT PRN IV Hypoglycemia 07/04/17 14:30 08/03/17 14:29 Duloxetine HCl (Cymbalta) 30 mg QHS ORAL 07/04/17 21:00 08/03/17 20:59 Heparin Sodium (Porcine) (Heparin 5000 units/ml) 5,000 units EVERY 12 HOURS SUBQ 07/04/17 21:00 08/03/17 20:59 Lorazepam (Ativan) 0.5 mg BID PRN ORAL anxiety or outburst of anger 07/04/17 14:30 07/11/17 14:29 Morphine Sulfate (Morphine Sulfate) 2 mg Q4H PRN IVP Moderate Pain (Pain Scale 4-6) 07/04/17 14:30 07/11/17 14:29 Nitroglycerin (Ntg) 0.4 mg Q5M PRN SL Prn Chest Pain 07/04/17 14:30 08/03/17 14:29 Ondansetron HCl (Zofran) 4 mg Q6H PRN IVP Nausea & Vomiting 07/04/17 14:30 08/03/17 14:29 Polyethylene Glycol (Miralax) 17 gm DAILYPRN PRN ORAL Constipation 07/04/17 14:00 08/03/17 13:59 Temazepam (Restoril) 15 mg HSPRN PRN ORAL Insomnia 07/04/17 21:00 07/11/17 20:59 Vancomycin HCl 1 gm/Dextrose 275 ml @ 183.3 mls/ hr Q24H IVPB 07/05/17 03:00 07/10/17 02:59 Criselda Morejon MD Jul 04, 2017 15:11
--- NOTE | 2017-07-04 16:58 | Consultation ---
History of Present Illness General Date patient seen: Jul 04, 2017 Time patient seen: 16:51 Chief Complaint: General Complaint Present Illness HPI 67 y/o M with hx of HTN, L knee OA, GERD presents to ED on 07/04 with worsening infection on both legs. Has noticed pain, purulent drainage Deneis f/c, cough, n/v, dysuria. Refers loose stool Allergies: Coded Allergies: No Known Allergies (Unverified , 03/08/14) Medication History Scheduled Duloxetine Hcl* (Cymbalta*), 30 MG ORAL QHS, (Reported) Heparin Sod (Porcine) (Heparin Sodium*), 5,000 UNITS SUBQ EVERY 12 HOURS No Known Medications* (NKM - No Known Medications*), 0 ., (Reported) No Known Medications* (NKM - No Known Medications*), 0 ., (Reported) Polyethylene Glycol 3350* (Miralax*), 17 GM ORAL QHS, (Reported) Scheduled PRN Acetaminophen* (Acetaminophen 325MG Tablet*), 650 MG ORAL Q4H PRN for Mild Pain (Pain Scale 1-3) Duloxetine Hcl* (Cymbalta*), 60 MG ORAL DAILY PRN for verbalization of depression, (Reported) Ibuprofen* (Motrin*), 600 MG ORAL Q8H PRN Lorazepam* (Ativan*), 0.5 MG ORAL BID PRN for anxiety or outburst of anger, ( Reported) Mag Hydrox/Al Hydrox/Simeth (Alum-Mag Hydroxide-Simeth Liq), 30 ML PO Q6HR PRN for heartburn, (Reported) Meclizine Hcl* (Meclizine*), 25 MG ORAL THREE TIMES A DAY PRN for for dizziness Ondansetron Odt* (Zofran Odt*), 4 MG ORAL Q8H PRN for Nausea & Vomiting Zolpidem Tartrate* (Ambien*), 10 MG ORAL HS PRN for Insomnia, (Reported) [Vancomycin Hcl], 1 EA MISC DAILY PRN for Per rx protocol Patient History Healthcare decision maker Resuscitation status Full Code Advanced Directive on File Patient History Narrative Pmhx: as above Shx: patient chews tobacco. Fhx: non contributory Review of Systems All Other Systems: negative except mentioned in HPI Physical Exam Physical Exam Narrative General Appearance: WD/WN Lines, tubes and drains: peripheral, dialysis access - right chest HEENT: normocephalic, atraumatic Neck: non-tender, normal alignment, supple Respiratory/Chest: no respiratory distress Cardiovascular/Chest: regular rhythm Abdomen: normal bowel sounds, non tender Genitourinary/Rectal: normal genital exam, normal rectal exam Extremities: B/l leg with edema and chronic venous stastsis changes, both legs with area of redness, warmth and mild TTP, some mild serous drainage Last 24 Hour Vital Signs Date Time Temp Pulse Resp B/P (MAP) Pulse Ox O2 Delivery O2 Flow Rate FiO2 07/04/17 12:00 98.7 81 20 117/81 99 Room Air 98.7 07/04/17 08:00 97.4 72 15 128/71 98 Room Air 07/04/17 07:31 97.4 72 15 128/71 98 Room Air 97.4 07/04/17 05:40 79 20 118/70 99 Room Air 07/04/17 02:14 97.0 88 13 123/74 97 Room Air 97.0 07/04/17 00:15 98.4 102 18 139/78 98 Room Air 98.4 07/03/17 23:49 98.5 102 18 139/78 98 Room Air 98.4 Intake and Output 07/03/17 07/04/17 19:00 07:00 Intake Total 110 ml Balance 110 ml Intake Oral 0 ml IV Total 110 ml Laboratory Tests Test 07/04/17 01:10 07/04/17 02:50 White Blood Count 3.5 K/UL (4.8-10.8) L Red Blood Count 4.41 M/UL (4.70-6.10) L Hemoglobin 13.6 G/DL (14.2-18.0) L Hematocrit 40.4 % (42.0-52.0) L Mean Corpuscular Volume 92 FL (80-99) Mean Corpuscular Hemoglobin 30.9 PG (27.0-31.0) Mean Corpuscular Hemoglobin Concent 33.7 G/DL (32.0-36.0) Red Cell Distribution Width 12.4 % (11.6-14.8) Platelet Count 117 K/UL (150-450) L Mean Platelet Volume 9.3 FL (6.5-10.1) Neutrophils (%) (Auto) 69.6 % (45.0-75.0) Lymphocytes (%) (Auto) 14.8 % (20.0-45.0) L Monocytes (%) (Auto) 14.3 % (1.0-10.0) H Eosinophils (%) (Auto) 0.0 % (0.0-3.0) Basophils (%) (Auto) 1.2 % (0.0-2.0) Prothrombin Time 10.8 SEC (9.30-11.50) Prothromb Time International Ratio 1.0 (0.9-1.1) Activated Partial Thromboplast Time 26 SEC (23-33) Sodium Level 139 MMOL/L (136-145) Potassium Level 3.9 MMOL/L (3.5-5.1) Chloride Level 104 MMOL/L (98-107) Carbon Dioxide Level 27 MMOL/L (21-32) Anion Gap 8 mmol/L (5-15) Blood Urea Nitrogen 31 mg/dL (7-18) H Creatinine 1.6 MG/DL (0.55-1.30) H Estimat Glomerular Filtration Rate 43.1 mL/min (>60) Glucose Level 88 MG/DL (74-106) Lactic Acid Level 1.20 mmol/L (0.66-2.22) Calcium Level 8.3 MG/DL (8.5-10.1) L Total Bilirubin 3.5 MG/DL (0.2-1.0) H Direct Bilirubin 2.1 MG/DL (0.0-0.3) H Aspartate Amino Transf (AST/SGOT) 93 U/L (15-37) H Alanine Aminotransferase (ALT/SGPT) 59 U/L (12-78) Alkaline Phosphatase 203 U/L (46-116) H Total Creatine Kinase 831 U/L (26-308) H Troponin I 0.007 ng/mL (0.000-0.056) Pro-B-Type Natriuretic Peptide 367 pg/mL (0-125) H Total Protein 7.2 G/DL (6.4-8.2) Albumin 3.4 G/DL (3.4-5.0) Globulin 3.8 g/dL Albumin/Globulin Ratio 0.9 (1.0-2.7) L Urine Color Yellow Urine Appearance Clear Urine pH 6.0 (4.5-8.0) Urine Specific [place] 1.020 (1.005-1.035) Urine Protein 2+ (NEGATIVE) H Urine Glucose (UA) Negative (NEGATIVE) Urine Ketones Negative (NEGATIVE) Urine Occult Blood 2+ (NEGATIVE) H Urine Nitrite Negative (NEGATIVE) Urine Bilirubin 2+ (NEGATIVE) H Urine Ictotest Positive Urine Urobilinogen 12 MG/DL (0.0-1.0) H Urine Leukocyte Esterase Negative (NEGATIVE) Urine RBC 2-4 /HPF (0 - 0) H Urine WBC 5-10 /HPF (0 - 0) H Urine Squamous Epithelial Cells Few /LPF (NONE/OCC) Urine Bacteria None /HPF (NONE) Height (Feet): 5 Height (Inches): 8.00 Weight (Pounds): 165 Medications Current Medications Medications (Trade) Dose Ordered Sig/Berna Route PRN Reason Start Time Stop Time Status Last Admin Dose Admin Acetaminophen (Tylenol) 650 mg Q4H PRN ORAL fever>100.5 07/04/17 14:30 08/03/17 14:29 Albuterol/ Ipratropium (Albuterol/ Ipratropium) 3 ml Q4H PRN HHN Shortness of Breath 07/04/17 15:00 07/09/17 14:59 Cefepime HCl 2 gm/ Dextrose 110 ml @ 220 mls/hr Q24H IV 07/04/17 21:00 07/11/17 20:59 Dextrose (Dextrose 50%) STAT PRN IV Hypoglycemia 07/04/17 14:30 08/03/17 14:29 Duloxetine HCl (Cymbalta) 30 mg QHS ORAL 07/04/17 21:00 08/03/17 20:59 Heparin Sodium (Porcine) (Heparin 5000 units/ml) 5,000 units EVERY 12 HOURS SUBQ 07/04/17 21:00 08/03/17 20:59 Lorazepam (Ativan) 0.5 mg BID PRN ORAL anxiety or outburst of anger 07/04/17 14:30 07/11/17 14:29 Morphine Sulfate (Morphine Sulfate) 2 mg Q4H PRN IVP Moderate Pain (Pain Scale 4-6) 07/04/17 14:30 07/11/17 14:29 Nitroglycerin (Ntg) 0.4 mg Q5M PRN SL Prn Chest Pain 07/04/17 14:30 08/03/17 14:29 Ondansetron HCl (Zofran) 4 mg Q6H PRN IVP Nausea & Vomiting 07/04/17 14:30 08/03/17 14:29 Polyethylene Glycol (Miralax) 17 gm DAILYPRN PRN ORAL Constipation 07/04/17 14:00 08/03/17 13:59 Temazepam (Restoril) 15 mg HSPRN PRN ORAL Insomnia 07/04/17 21:00 07/11/17 20:59 Vancomycin HCl 1 gm/Dextrose 275 ml @ 183.3 mls/ hr Q24H IVPB 07/05/17 03:00 07/10/17 02:59 Assessment/Plan Assessment/Plan Abx: IV Vancomcyin 07/04- Cefepime 07/04- Flagyl x1 07/04 Assessment: B/l Cellulitis in the setting of chronic swelling/venous stasis Afebrile Mild leukopenia/thrombocytopenia- r/o HIV HTN L Knee OA GERD Plan: -Switch IV Vancomycin and Cefepime #04/21-14 to IV Ancef for cellulitis; upon further improvement will switch to PO Keflex (renally dose) -leg elevation and wound care -management of leg swelling is important -Check HIV ag/b -f/u Cx -MOnitor CBC/BMP, temperatures Thank you for this consultation. Will continue to follow along with you. Discussed with Claudette Hammond M.D. Jul 04, 2017 16:58
--- NOTE | 2017-07-04 18:32 | Wound Care Consultation ---
Wound Assessment Wound Assessment : Wound Number: 1 Wound Present on Admission: Yes New Wound: No Status Change of Wound: No Wound Location Body Site Modif: left, right, lower Wound Location Body Site: leg Wound Type: lesion-etiology unknown Millicent Test: Does not Millicent Wound Thickness: Full Thickness Percent of Wound [place]/Red: 95 Percent of Wound Bed Yellow/Wh: 5 Wound Drainage Description: Serosanguineous Wound Drainage Amount: Moderate Wound Drainage Odor: None/Absent Tissue Surrounding Wound: Erythemic Wound General Appearance: Reddened, Draining Wound Comment #1 Left and right lower legs with open wounds etiology unknown Recommendation -Cleanse with saline, pat dry, apply Xeroform gauze, cover with 4x4 wrap with Kerlix daily and PRN soiled/dislodged -Keep clan and dry -Optimize nutrition -Offload both heels -Heel protector on both heels -Assess and f/u with MD for any changes RADHA CARRASCO RN Jul 04, 2017 18:32
[2017-07-04 20:00] VITALS: BP 127/77
[2017-07-04] MEDS ORDERED: DULoxetine 30mg cap ORAL SCH (21:00)
[2017-07-04] MEDS ORDERED: Cefepime HCl 2 GM in D5W 110 ML IV SCH (21:00)
[2017-07-04] MEDS: ceFAZolin sod 1 GM in D5W 110 ML IVPB SCH (21:44)
[2017-07-04] MEDS: Heparin 5000 units/ml inj SUBQ SCH (21:49)
[2017-07-05] MEDS: Morphine Sulfate 2mg/ml Inj IVP PRN (01:35)
[2017-07-05] MEDS ORDERED: Vancomycin 1 GM in D5W 275 ML IVPB SCH (03:00)
[2017-07-05 04:00] VITALS: BP 140/83
--- NOTE | 2017-07-05 04:31 | Consultation ---
DATE OF CONSULTATION: 07/04/2017 NOTE: POOR AUDIO HEMATOLOGY/ONCOLOGY CONSULTATION CONSULTING PHYSICIAN: Truman Proctor M.D. REQUESTING PHYSICIAN: Criselda Morejon M.D. REASON FOR CONSULTATION: Evaluation of pancytopenia. IDENTIFICATION DATA: Dear Dr. Morejon, The patient is a pleasant 67-year-old male with past medical history significant for left knee osteoarthritis and GERD, at this time presents to the ER for worsening bilateral lower extremity pain, purulent discharge noted. The patient had been seen by ID Service, noted to be pancytopenic. Hematology Service was consulted for further evaluation and treatment. During the patient's prior admission, he has been here before, and a prior serology reviewed. hepatitis panel or HIV has not been ordered . Coagulation reviewed, D-dimer is . The patient's prior admission has since relatively been between as well as patient's decreased platelet count. PAST MEDICAL HISTORY: As noted above. PAST SURGICAL HISTORY: None reported. ALLERGIES: No known drug allergies. SOCIAL HISTORY: No illicit drug use, although reports chewing tobacco, potential alcohol use as well. FAMILY HISTORY: Noncontributory. REVIEW OF SYSTEMS: CONSTITUTIONAL: No fevers, chills, or night sweats. He has had some fatigue noted. SKIN: Bilateral lower extremity cellulitis noted. GASTROINTESTINAL: No nausea, vomiting, or diarrhea. GENITOURINARY: No dysuria, frequency, or urgency. MUSCULOSKELETAL: No joint swelling, muscle pain, or trauma. PHYSICAL EXAMINATION: VITAL SIGNS: Reviewed. GENERAL: No distress. PULMONARY: Decreased breath sounds. CARDIOVASCULAR: Regular rate. No S3 or S4. ABDOMEN: Soft, nontender, and nondistended. EXTREMITIES: Bilateral lower extremity cellulitis is noted. LABORATORY AND DIAGNOSTIC DATA: Imaging from before with a history of back in May. Prior DVT studies have all been reviewed, did not see any evidence of clotting and from 2016 2016 shows DVT system. ASSESSMENT AND RECOMMENDATIONS: 1. Pancytopenia, potentially this is secondary to either myelosuppression, either alcohol use, or other cause. Obtain anemia workup, thrombocytopenia workup, and hepatitis, human immunodeficiency virus, and ultrasound of the abdomen. 2. Deep vein thrombosis history in the past, currently resolved. Most recent duplex reviewed. Over the past three studies, most recent duplexes have all been negative. 3. Cellulitis of bilateral lower extremity, is on antibiotics as per ID Service, Dr. Mosley and Dr. Wilkins. 4. Left knee osteoarthritis. Continue to closely monitor. 5. Hypertension. Systolic blood pressure goal less than 130. 6. Gastroesophageal reflux disease. Continue antacids as needed. I appreciate the consultation. Truman Proctor M.D. DR: NAHED JOB#: [id number] CC:
[2017-07-05] MEDS: ceFAZolin sod 1 GM in D5W 110 ML IVPB SCH ×3 (05:37→21:45)
[2017-07-05 08:00] VITALS: BP 120/78
--- NOTE | 2017-07-05 08:21 | Pulmonology Progress Note ---
Assessment/Plan Assessment/Plan ASSESSMENT Cellulitis BLE Venous stasis DONNA vs CRI Transaminitis HTN homeless PLAN OF CARE [facility] floor abx ID follows Venous Duplex BLE elevate Legs wound care asper woun nurse recs HIV screen (due to low PLT and leukopenia) s/p IVF abdominal US Trend LFT hepatitis panel ? ETOH abuse PT/OT SW for placement case discussed and evaluated by supervising physician Subjective Allergies: Coded Allergies: No Known Allergies (Unverified , 03/08/14) Subjective denies CP SOB intermittent leg pain labs pending for this am Objective Last 24 Hour Vital Signs Date Time Temp Pulse Resp B/P (MAP) Pulse Ox O2 Delivery O2 Flow Rate FiO2 07/05/17 06:45 70 Room Air 21 07/05/17 04:00 97.7 82 19 140/83 93 Room Air 97.7 07/04/17 20:00 97.0 82 19 127/77 97 Room Air 97.0 07/04/17 12:00 98.7 81 20 117/81 99 Room Air 98.7 Intake and Output 07/04/17 07/05/17 19:00 07:00 Intake Total 360 ml Output Total 600 ml 1100 ml Balance -240 ml -1100 ml Intake Oral 360 ml Output Urine Total 600 ml 1100 ml # Voids 3 4 General Appearance: no acute distress HEENT: normocephalic, atraumatic, anicteric, mucous membranes moist Respiratory/Chest: normal breath sounds, no respiratory distress Cardiovascular: normal rate, no JVD Abdomen: soft, non tender Extremities: pedal pulses normal, other - +1 edema BLE with bilateral leg ulcers Neurologic/Psychiatric: alert, responsive Musculoskeletal: normal muscle bulk Microbiology Date/Time Source Procedure Growth Status 07/04/17 01:10 Blood Blood Culture - Preliminary NO GROWTH AFTER 24 HOURS Resulted 07/04/17 00:55 Blood Blood Culture - Preliminary NO GROWTH AFTER 24 HOURS Resulted Current Medications Medications (Trade) Dose Ordered Sig/Berna Route PRN Reason Start Time Stop Time Status Last Admin Dose Admin Acetaminophen (Tylenol) 650 mg Q4H PRN ORAL fever>100.5 07/04/17 14:30 08/03/17 14:29 Albuterol/ Ipratropium (Albuterol/ Ipratropium) 3 ml Q4H PRN HHN Shortness of Breath 07/04/17 15:00 07/09/17 14:59 Cefazolin Sodium 1 gm/Dextrose 110 ml @ 220 mls/hr Q8HR IVPB 07/04/17 22:00 07/11/17 21:59 07/05/17 05:37 Dextrose (Dextrose 50%) STAT PRN IV Hypoglycemia 07/04/17 14:30 08/03/17 14:29 Duloxetine HCl (Cymbalta) 30 mg QHS ORAL 07/04/17 21:00 08/03/17 20:59 07/04/17 21:45 Heparin Sodium (Porcine) (Heparin 5000 units/ml) 5,000 units EVERY 12 HOURS SUBQ 07/04/17 21:00 08/03/17 20:59 07/04/17 21:49 Lorazepam (Ativan) 0.5 mg BID PRN ORAL anxiety or outburst of anger 07/04/17 14:30 07/11/17 14:29 Morphine Sulfate (Morphine Sulfate) 2 mg Q4H PRN IVP Moderate Pain (Pain Scale 4-6) 07/04/17 14:30 07/11/17 14:29 07/05/17 01:35 Nitroglycerin (Ntg) 0.4 mg Q5M PRN SL Prn Chest Pain 07/04/17 14:30 08/03/17 14:29 Ondansetron HCl (Zofran) 4 mg Q6H PRN IVP Nausea & Vomiting 07/04/17 14:30 08/03/17 14:29 Polyethylene Glycol (Miralax) 17 gm DAILYPRN PRN ORAL Constipation 07/04/17 14:00 08/03/17 13:59 Temazepam (Restoril) 15 mg HSPRN PRN ORAL Insomnia 07/04/17 21:00 07/11/17 20:59 Maribel Marquez NP ([facility]) Jul 05, 2017 08:21
[2017-07-05] MEDS: Heparin 5000 units/ml inj SUBQ SCH ×2 (08:39→21:00)
--- NOTE | 2017-07-05 11:56 | Diagnostic Imaging Report ---
Indication: Abnormal liver function tests and abnormal renal function tests Technique: Gerardo-scale and duplex images of the upper abdomen were obtained Comparison: Findings: Gallbladder demonstrates gallstones and sludge. There is some pericholecystic fluid. The gallbladder wall is borderline thickened, measuring 4 mm thick Sonographic Green's sign could not be assessed as patient was asleep. Common bile duct measures 5 mm in diameter. No intrahepatic biliary ductal dilatation. Liver demonstrates normal echogenicity, no focal abnormality. There is questionably hepatic surface nodularity. Portal vein and hepatic veins are patent. Pancreas is unremarkable. Spleen is unremarkable. Left kidney measures 11 cm in length. Right kidney measures 11 cm length. Both kidneys demonstrate normal echogenicity. There is no hydronephrosis. Cysts are seen in the left kidney. Some of these may be parapelvic cysts. Right kidney demonstrates a 2.5 cm parapelvic cyst . The abdominal aorta demonstrates a 3.3 cm diameter distal saccular aneurysm . There is trace ascites Impression: Trace ascites Cholelithiasis and sludge. Borderline thick walled gallbladder and some pericholecystic fluid. Possibly related to hepatocellular disease given the presence of ascites but raises the possibility of acute cholecystitis. Consider nuclear medicine hepatobiliary scan for further evaluation if there is high clinical suspicion 3.3 cm saccular distal abdominal aortic aneurysm Questionable hepatic surface nodularity, could indicate early cirrhotic change Bilateral renal or cortical and possible parapelvic cysts. No hydronephrosis
[2017-07-05 12:00] VITALS: BP 132/88
--- NOTE | 2017-07-05 15:25 | Infectious Diseases Prog Note ---
Assessment/Plan Assessment/Plan Assessment: B/l Cellulitis in the setting of chronic swelling/venous stasis Afebrile Mild leukopenia/thrombocytopenia- r/o HIV Elevated LFts: -Abd US: Cholelithiasis and sludge. Borderline thick walled gallbladder and some pericholecystic fluid. Possibly related to hepatocellular disease given the presence of ascites but raises the possibility of acute cholecystitis. 3.3 cm saccular distal abdominal aortic aneurysm. Questionable hepatic surface nodularity, could indicate early cirrhotic change. Bilateral renal or cortical and possible parapelvic cysts. No hydronephrosis HTN L Knee OA GERD Plan: -Continue IV Ancef abx #2-14 for cellulitis; upon further improvement will switch to PO Keflex (renally dose) -07/04 SP IV Vancomycin and Cefepime #1, flagyl x1 -leg elevation and wound care -management of leg swelling is important -f/u HIV ag/b, hep panel -low threshold for HIDA scan if RUQ pain, fever, leukocytosis -f/u Cx -MOnitor CBC/BMP, temperatures Thank you for this consultation. Will continue to follow along with you. Discussed with RN. Subjective Allergies: Coded Allergies: No Known Allergies (Unverified , 03/08/14) Objective Vital Signs Last 24 Hour Vital Signs Date Time Temp Pulse Resp B/P (MAP) Pulse Ox O2 Delivery O2 Flow Rate FiO2 07/05/17 12:00 97.7 81 18 132/88 96 97.7 07/05/17 08:00 97.0 83 17 120/78 97 97.0 07/05/17 06:45 70 Room Air 21 07/05/17 04:00 97.7 82 19 140/83 93 Room Air 97.7 07/04/17 20:00 97.0 82 19 127/77 97 Room Air 97.0 Height (Feet): 5 Height (Inches): 8.00 Weight (Pounds): 165 Objective General Appearance: WD/WN Lines, tubes and drains: peripheral, dialysis access - right chest HEENT: normocephalic, atraumatic Neck: non-tender, normal alignment, supple Respiratory/Chest: no respiratory distress Cardiovascular/Chest: regular rhythm Abdomen: normal bowel sounds, non tender Genitourinary/Rectal: normal genital exam, normal rectal exam Extremities: B/l leg with edema and chronic venous stastsis changes, both legs with area of redness, warmth and mild TTP, some mild serous drainage Microbiology Date/Time Source Procedure Growth Status 07/04/17 01:10 Blood Blood Culture - Preliminary NO GROWTH AFTER 24 HOURS Resulted 07/04/17 00:55 Blood Blood Culture - Preliminary NO GROWTH AFTER 24 HOURS Resulted 07/04/17 06:30 Rectum VRE Culture - Final NO VANCOMYCIN RESISTANT ENTEROCOCCUS ... Complete 07/04/17 01:00 Leg Right Gram Stain Pending Resulted 07/04/17 01:00 Wound Culture - Preliminary Gram Negative Bereket Strep Species, Gamma-Hemolytic Staphylococcus Sp Coag Neg Resulted Current Medications Medications (Trade) Dose Ordered Sig/Berna Route PRN Reason Start Time Stop Time Status Last Admin Dose Admin Acetaminophen (Tylenol) 650 mg Q4H PRN ORAL fever>100.5 07/04/17 14:30 08/03/17 14:29 Albuterol/ Ipratropium (Albuterol/ Ipratropium) 3 ml Q4H PRN HHN Shortness of Breath 07/04/17 15:00 07/09/17 14:59 Cefazolin Sodium 1 gm/Dextrose 110 ml @ 220 mls/hr Q8HR IVPB 07/04/17 22:00 07/11/17 21:59 07/05/17 14:59 Dextrose (Dextrose 50%) STAT PRN IV Hypoglycemia 07/04/17 14:30 08/03/17 14:29 Duloxetine HCl (Cymbalta) 30 mg QHS ORAL 07/04/17 21:00 08/03/17 20:59 07/04/17 21:45 Heparin Sodium (Porcine) (Heparin 5000 units/ml) 5,000 units EVERY 12 HOURS SUBQ 07/04/17 21:00 08/03/17 20:59 07/04/17 21:49 Lorazepam (Ativan) 0.5 mg BID PRN ORAL anxiety or outburst of anger 07/04/17 14:30 07/11/17 14:29 Morphine Sulfate (Morphine Sulfate) 2 mg Q4H PRN IVP Moderate Pain (Pain Scale 4-6) 07/04/17 14:30 07/11/17 14:29 07/05/17 01:35 Nitroglycerin (Ntg) 0.4 mg Q5M PRN SL Prn Chest Pain 07/04/17 14:30 4/21/18 14:29 Ondansetron HCl (Zofran) 4 mg Q6H PRN IVP Nausea & Vomiting 07/04/17 14:30 08/03/17 14:29 Polyethylene Glycol (Miralax) 17 gm DAILYPRN PRN ORAL Constipation 07/04/17 14:00 08/03/17 13:59 Temazepam (Restoril) 15 mg HSPRN PRN ORAL Insomnia 07/04/17 21:00 07/11/17 20:59 Claudette Simpson M.D. Jul 05, 2017 15:25
--- NOTE | 2017-07-05 15:32 | Consultation ---
History of Present Illness General Date patient seen: Jul 05, 2017 Chief Complaint: General Complaint Present Illness HPI 67-year-old male with past medical history significant for left knee osteoarthritis and GERD, at this time presents to the ER for worsening bilateral lower extremity pain, purulent discharge noted. Allergies: Coded Allergies: No Known Allergies (Unverified , 03/08/14) Medication History Scheduled Duloxetine Hcl* (Cymbalta*), 30 MG ORAL QHS, (Reported) Heparin Sod (Porcine) (Heparin Sodium*), 5,000 UNITS SUBQ EVERY 12 HOURS No Known Medications* (NKM - No Known Medications*), 0 ., (Reported) No Known Medications* (NKM - No Known Medications*), 0 ., (Reported) Polyethylene Glycol 3350* (Miralax*), 17 GM ORAL QHS, (Reported) Scheduled PRN Acetaminophen* (Acetaminophen 325MG Tablet*), 650 MG ORAL Q4H PRN for Mild Pain (Pain Scale 1-3) Duloxetine Hcl* (Cymbalta*), 60 MG ORAL DAILY PRN for verbalization of depression, (Reported) Ibuprofen* (Motrin*), 600 MG ORAL Q8H PRN Lorazepam* (Ativan*), 0.5 MG ORAL BID PRN for anxiety or outburst of anger, ( Reported) Mag Hydrox/Al Hydrox/Simeth (Alum-Mag Hydroxide-Simeth Liq), 30 ML PO Q6HR PRN for heartburn, (Reported) Meclizine Hcl* (Meclizine*), 25 MG ORAL THREE TIMES A DAY PRN for for dizziness Ondansetron Odt* (Zofran Odt*), 4 MG ORAL Q8H PRN for Nausea & Vomiting Zolpidem Tartrate* (Ambien*), 10 MG ORAL HS PRN for Insomnia, (Reported) [Vancomycin Hcl], 1 EA MISC DAILY PRN for Per rx protocol Patient History Healthcare decision maker Resuscitation status Full Code Advanced Directive on File Physical Exam Last 24 Hour Vital Signs Date Time Temp Pulse Resp B/P (MAP) Pulse Ox O2 Delivery O2 Flow Rate FiO2 07/05/17 12:00 97.7 81 18 132/88 96 97.7 07/05/17 08:00 97.0 83 17 120/78 97 97.0 3/23/18 06:45 70 Room Air 21 07/05/17 04:00 97.7 82 19 140/83 93 Room Air 97.7 07/04/17 20:00 97.0 82 19 127/77 97 Room Air 97.0 Intake and Output 07/04/17 07/05/17 19:00 07:00 Intake Total 360 ml Output Total 600 ml 1100 ml Balance -240 ml -1100 ml Intake Oral 360 ml Output Urine Total 600 ml 1100 ml # Voids 3 4 Height (Feet): 5 Height (Inches): 8.00 Weight (Pounds): 165 Medications Current Medications Medications (Trade) Dose Ordered Sig/Berna Route PRN Reason Start Time Stop Time Status Last Admin Dose Admin Acetaminophen (Tylenol) 650 mg Q4H PRN ORAL fever>100.5 07/04/17 14:30 08/03/17 14:29 Albuterol/ Ipratropium (Albuterol/ Ipratropium) 3 ml Q4H PRN HHN Shortness of Breath 07/04/17 15:00 07/09/17 14:59 Cefazolin Sodium 1 gm/Dextrose 110 ml @ 220 mls/hr Q8HR IVPB 07/04/17 22:00 07/11/17 21:59 07/05/17 14:59 Dextrose (Dextrose 50%) STAT PRN IV Hypoglycemia 07/04/17 14:30 08/03/17 14:29 Duloxetine HCl (Cymbalta) 30 mg QHS ORAL 07/04/17 21:00 08/03/17 20:59 07/04/17 21:45 Heparin Sodium (Porcine) (Heparin 5000 units/ml) 5,000 units EVERY 12 HOURS SUBQ 07/04/17 21:00 08/03/17 20:59 07/04/17 21:49 Lorazepam (Ativan) 0.5 mg BID PRN ORAL anxiety or outburst of anger 07/04/17 14:30 07/11/17 14:29 Morphine Sulfate (Morphine Sulfate) 2 mg Q4H PRN IVP Moderate Pain (Pain Scale 4-6) 07/04/17 14:30 07/11/17 14:29 07/05/17 01:35 Nitroglycerin (Ntg) 0.4 mg Q5M PRN SL Prn Chest Pain 07/04/17 14:30 08/03/17 14:29 Ondansetron HCl (Zofran) 4 mg Q6H PRN IVP Nausea & Vomiting 07/04/17 14:30 08/03/17 14:29 Polyethylene Glycol (Miralax) 17 gm DAILYPRN PRN ORAL Constipation 07/04/17 14:00 08/03/17 13:59 Temazepam (Restoril) 15 mg HSPRN PRN ORAL Insomnia 07/04/17 21:00 07/11/17 20:59 Latasha Vidal M.D. Jul 05, 2017 15:32
[2017-07-05 16:00] VITALS: BP 131/79
[2017-07-05 20:00] VITALS: BP_SYST 108; BP_SYST 138; BP_DIAS 73; BP_DIAS 90
[2017-07-06] VITALS: BP 126/74
[2017-07-06 04:00] VITALS: BP 141/76
[2017-07-06] MEDS: ceFAZolin sod 1 GM in D5W 110 ML IVPB SCH (05:50)
--- NOTE | 2017-07-06 07:53 | Pulmonology Progress Note ---
Assessment/Plan Assessment/Plan ASSESSMENT Cellulitis BLE Venous stasis DONNA vs CRI Transaminitis cholelithiasis r/o acute ashli possible cirrhosis AAA 3.3 cm HTN homeless PLAN OF CARE MS floor abx ID follows , wound + Providencia, Enterococci, SCON Venous Duplex BLE negative elevate legs wound care as per wound nurse recs HIV screen (due to low PLT and leukopenia) s/p IVF abdominal US: Cholelithiasis and sludge. Borderline thick walled gallbladder and some pericholecystic fluid. Possibly related to hepatocellular disease given the presence of ascites but raises the possibility of acute cholecystitis. Consider nuclear medicine hepatobiliary scan for further evaluation if there is high clinical suspicion 3.3 cm saccular distal abdominal aortic aneurysm Questionable hepatic surface nodularity, could indicate early cirrhotic change Bilateral renal or cortical and possible parapelvic cysts. No hydronephrosis Trend LFT - with small trend down hepatitis panel pending check AFP ? ETOH abuse HIDA scan GI eval for AAA- size small, accidental finding, no complains, needs periodic 6 months check with abdominal US PT/OT SW for placement case discussed and evaluated by supervising physician Subjective Allergies: Coded Allergies: No Known Allergies (Unverified , 03/08/14) Subjective denies CP SOB intermittent leg pain no abdominal pain, some nausea afebrile no leucocytosis Objective Last 24 Hour Vital Signs Date Time Temp Pulse Resp B/P (MAP) Pulse Ox O2 Delivery O2 Flow Rate FiO2 07/06/17 04:00 97.7 77 20 141/76 100 97.7 07/06/17 00:00 96.9 74 19 126/74 93 96.9 07/05/17 20:00 98.2 86 18 138/90 96 98.2 07/05/17 19:40 75 Room Air 21 07/05/17 16:00 98.2 73 17 131/79 96 98.2 07/05/17 12:00 97.7 81 18 132/88 96 97.7 07/05/17 08:00 97.0 83 17 120/78 97 97.0 Intake and Output 07/05/17 07/06/17 19:00 07:00 Intake Total 490 ml 440 ml Output Total 900 ml Balance 490 ml -460 ml Intake Oral 380 ml IV Total 110 ml 440 ml Output Urine Total 900 ml # Voids 3 2 Objective General Appearance: no acute distress HEENT: normocephalic, atraumatic, anicteric, mucous membranes moist Respiratory/Chest: normal breath sounds, no respiratory distress Cardiovascular: normal rate, no JVD Abdomen: soft, non tender Extremities: pedal pulses normal, other - +1 edema BLE with bilateral leg ulcers Neurologic/Psychiatric: alert, responsive Musculoskeletal: normal muscle bulk Microbiology Date/Time Source Procedure Growth Status 07/04/17 01:10 Blood Blood Culture - Preliminary NO GROWTH AFTER 48 HOURS Resulted 07/04/17 00:55 Blood Blood Culture - Preliminary NO GROWTH AFTER 48 HOURS Resulted 07/04/17 06:30 Nasal Nares MRSA Culture - Final NO METHICILLIN RESISTANT STAPH AUREUS... Complete 07/04/17 06:30 Rectum VRE Culture - Final NO VANCOMYCIN RESISTANT ENTEROCOCCUS ... Complete 07/04/17 01:00 Leg Right Gram Stain Pending Resulted 07/04/17 01:00 Wound Culture - Preliminary Gram Negative Bereket Strep Species, Gamma-Hemolytic Staphylococcus Sp Coag Neg Resulted Current Medications Medications (Trade) Dose Ordered Sig/Berna Route PRN Reason Start Time Stop Time Status Last Admin Dose Admin Acetaminophen (Tylenol) 650 mg Q4H PRN ORAL fever>100.5 07/04/17 14:30 08/03/17 14:29 Albuterol/ Ipratropium (Albuterol/ Ipratropium) 3 ml Q4H PRN HHN Shortness of Breath 07/04/17 15:00 07/09/17 14:59 Cefazolin Sodium 1 gm/Dextrose 110 ml @ 220 mls/hr Q8HR IVPB 07/04/17 22:00 07/11/17 21:59 07/06/17 05:50 Dextrose (Dextrose 50%) STAT PRN IV Hypoglycemia 07/04/17 14:30 08/03/17 14:29 Duloxetine HCl (Cymbalta) 60 mg DAILY ORAL 07/06/17 09:00 07/13/17 08:59 Heparin Sodium (Porcine) (Heparin 5000 units/ml) 5,000 units EVERY 12 HOURS SUBQ 07/04/17 21:00 08/03/17 20:59 07/04/17 21:49 Lorazepam (Ativan) 0.5 mg BID PRN ORAL anxiety or outburst of anger 07/04/17 14:30 07/11/17 14:29 Morphine Sulfate (Morphine Sulfate) 2 mg Q4H PRN IVP Moderate Pain (Pain Scale 4-6) 07/04/17 14:30 07/11/17 14:29 07/05/17 01:35 Nitroglycerin (Ntg) 0.4 mg Q5M PRN SL Prn Chest Pain 07/04/17 14:30 08/03/17 14:29 Ondansetron HCl (Zofran) 4 mg Q6H PRN IVP Nausea & Vomiting 07/04/17 14:30 08/03/17 14:29 Polyethylene Glycol (Miralax) 17 gm DAILYPRN PRN ORAL Constipation 07/04/17 14:00 08/03/17 13:59 Temazepam (Restoril) 15 mg HSPRN PRN ORAL Insomnia 07/04/17 21:00 07/11/17 20:59 Jimmy ([facility])Maribel NP Jul 06, 2017 07:53
[2017-07-06 08:00] VITALS: BP 137/89
[2017-07-06] MEDS: DULoxetine 30mg cap ORAL SCH (08:15)
[2017-07-06] MEDS: Heparin 5000 units/ml inj SUBQ SCH ×2 (08:16→21:00)
[2017-07-06 09:09] LABS: ALANINE AMINOTRANSFERASE 63 U/L (12-78); ALBUMIN 2.8 G/DL (3.4-5.0); ALBUMIN/GLOBULIN RATIO 0.8 (1.0-2.7); ALKALINE PHOSPHATASE 273 U/L (46-116); ANION GAP 5 mmol/L (5-15); ASPARTATE AMINO TRANSFERASE 70 U/L (15-37); BILIRUBIN,TOTAL 2.7 MG/DL (0.2-1.0); BLOOD UREA NITROGEN 14 mg/dL (7-18); CALCIUM 8.2 MG/DL (8.5-10.1); CARBON DIOXIDE 27 MMOL/L (21-32); CHLORIDE 106 MMOL/L (98-107); CREATINE KINASE 101 U/L (26-308); CREATININE 1.1 MG/DL (0.55-1.30); POTASSIUM 3.5 MMOL/L (3.5-5.1); SODIUM 138 MMOL/L (136-145)
[2017-07-06 09:11] LABS: HEMATOCRIT 43.1 % (42.0-52.0); HEMOGLOBIN 14.8 G/DL (14.2-18.0); MEAN CORPUSCULAR VOLUME 91 FL (80-99); PLATELET COUNT 118 K/UL (150-450); RED BLOOD COUNT 4.73 M/UL (4.70-6.10); RED CELL DISTRIBUTION WIDTH 12.3 % (11.6-14.8); WHITE BLOOD COUNT 3.1 K/UL (4.8-10.8)
[2017-07-06 09:13] LABS: BILIRUBIN,DIRECT 1.5 MG/DL (0.0-0.3)
--- NOTE | 2017-07-06 11:42 | Infectious Diseases Prog Note ---
Assessment/Plan Assessment/Plan Assessment: B/l Cellulitis in the setting of chronic swelling/venous stasis; improving -wound cx: P. stuarti (R ancef, S Ceftriaxone), E. fecalis (correa S), CoNS ;c olonizers Afebrile Mild leukopenia/thrombocytopenia- r/o HIV Elevated LFts: -Abd US: Cholelithiasis and sludge. Borderline thick walled gallbladder and some pericholecystic fluid. Possibly related to hepatocellular disease given the presence of ascites but raises the possibility of acute cholecystitis. 3.3 cm saccular distal abdominal aortic aneurysm. Questionable hepatic surface nodularity, could indicate early cirrhotic change. Bilateral renal or cortical and possible parapelvic cysts. No hydronephrosis HTN L Knee OA GERD Plan: -Switch IV Ancef abx #06/19-10 to PO Keflex 500mg qid for cellulitis -07/04 SP IV Vancomycin and Cefepime #1, flagyl x1 -leg elevation and wound care -management of leg swelling is important -f/u HIV ag/b, hep panel -low threshold for HIDA scan if RUQ pain, fever, leukocytosis -f/u Cx -MOnitor CBC/BMP, temperatures Thank you for this consultation. Will continue to follow along with you. Discussed with RN. Subjective Allergies: Coded Allergies: No Known Allergies (Unverified , 03/08/14) Objective Vital Signs Last 24 Hour Vital Signs Date Time Temp Pulse Resp B/P (MAP) Pulse Ox O2 Delivery O2 Flow Rate FiO2 07/06/17 08:00 97.6 85 19 137/89 98 97.6 07/06/17 07:45 72 Room Air 21 07/06/17 04:00 97.7 77 20 141/76 100 97.7 07/06/17 00:00 96.9 74 19 126/74 93 96.9 07/05/17 20:00 98.2 86 18 138/90 96 98.2 07/05/17 19:40 75 Room Air 21 07/05/17 16:00 98.2 73 17 131/79 96 98.2 07/05/17 12:00 97.7 81 18 132/88 96 97.7 Height (Feet): 5 Height (Inches): 8.00 Weight (Pounds): 165 Objective General Appearance: WD/WN Lines, tubes and drains: peripheral, dialysis access - right chest HEENT: normocephalic, atraumatic Neck: non-tender, normal alignment, supple Respiratory/Chest: no respiratory distress Cardiovascular/Chest: regular rhythm Abdomen: normal bowel sounds, non tender Genitourinary/Rectal: normal genital exam, normal rectal exam Extremities: B/l leg with edema and chronic venous stastsis changes, both legs with area of redness, warmth and mild TTP, some mild serous drainage Microbiology Date/Time Source Procedure Growth Status 07/04/17 01:10 Blood Blood Culture - Preliminary NO GROWTH AFTER 48 HOURS Resulted 07/04/17 00:55 Blood Blood Culture - Preliminary NO GROWTH AFTER 48 HOURS Resulted 07/04/17 06:30 Nasal Nares MRSA Culture - Final NO METHICILLIN RESISTANT STAPH AUREUS... Complete 07/04/17 06:30 Rectum VRE Culture - Final NO VANCOMYCIN RESISTANT ENTEROCOCCUS ... Complete 07/04/17 01:00 Leg Right Gram Stain Pending Resulted 07/04/17 01:00 Wound Culture - Preliminary Providencia Stuartii Enterococcus Faecalis Staphylococcus Sp Coag Neg Resulted Laboratory Tests Test 07/06/17 08:20 White Blood Count 3.1 K/UL (4.8-10.8) L Red Blood Count 4.73 M/UL (4.70-6.10) Hemoglobin 14.8 G/DL (14.2-18.0) Hematocrit 43.1 % (42.0-52.0) Mean Corpuscular Volume 91 FL (80-99) Mean Corpuscular Hemoglobin 31.2 PG (27.0-31.0) H Mean Corpuscular Hemoglobin Concent 34.3 G/DL (32.0-36.0) Red Cell Distribution Width 12.3 % (11.6-14.8) Platelet Count 118 K/UL (150-450) L Mean Platelet Volume 8.7 FL (6.5-10.1) Neutrophils (%) (Auto) % (45.0-75.0) Lymphocytes (%) (Auto) % (20.0-45.0) Monocytes (%) (Auto) % (1.0-10.0) Eosinophils (%) (Auto) % (0.0-3.0) Basophils (%) (Auto) % (0.0-2.0) Differential Total Cells Counted 100 Neutrophils % (Manual) 60 % (45-75) Lymphocytes % (Manual) 31 % (20-45) Monocytes % (Manual) 9 % (1-10) Eosinophils % (Manual) 0 % (0-3) Basophils % (Manual) 0 % (0-2) Band Neutrophils 0 % (0-8) Platelet Estimate Decreased L Platelet Morphology Normal Sodium Level 138 MMOL/L (136-145) Potassium Level 3.5 MMOL/L (3.5-5.1) Chloride Level 106 MMOL/L (98-107) Carbon Dioxide Level 27 MMOL/L (21-32) Anion Gap 5 mmol/L (5-15) Blood Urea Nitrogen 14 mg/dL (7-18) Creatinine 1.1 MG/DL (0.55-1.30) Estimat Glomerular Filtration Rate > 60 mL/min (>60) Glucose Level 156 MG/DL (74-106) H Calcium Level 8.2 MG/DL (8.5-10.1) L Total Bilirubin 2.7 MG/DL (0.2-1.0) H Direct Bilirubin 1.5 MG/DL (0.0-0.3) H Aspartate Amino Transf (AST/SGOT) 70 U/L (15-37) H Alanine Aminotransferase (ALT/SGPT) 63 U/L (12-78) Alkaline Phosphatase 273 U/L (46-116) H Total Creatine Kinase 101 U/L (26-308) Total Protein 6.5 G/DL (6.4-8.2) Albumin 2.8 G/DL (3.4-5.0) L Globulin 3.7 g/dL Albumin/Globulin Ratio 0.8 (1.0-2.7) L Current Medications Medications (Trade) Dose Ordered Sig/Berna Route PRN Reason Start Time Stop Time Status Last Admin Dose Admin Acetaminophen (Tylenol) 650 mg Q4H PRN ORAL fever>100.5 07/04/17 14:30 08/03/17 14:29 Albuterol/ Ipratropium (Albuterol/ Ipratropium) 3 ml Q4H PRN HHN Shortness of Breath 07/04/17 15:00 07/09/17 14:59 Cefazolin Sodium 1 gm/Dextrose 110 ml @ 220 mls/hr Q8HR IVPB 07/04/17 22:00 07/11/17 21:59 07/06/17 05:50 Dextrose (Dextrose 50%) STAT PRN IV Hypoglycemia 07/04/17 14:30 08/03/17 14:29 Duloxetine HCl (Cymbalta) 60 mg DAILY ORAL 07/06/17 09:00 07/13/17 08:59 07/06/17 08:15 Heparin Sodium (Porcine) (Heparin 5000 units/ml) 5,000 units EVERY 12 HOURS SUBQ 07/04/17 21:00 08/03/17 20:59 07/04/17 21:49 Lorazepam (Ativan) 0.5 mg BID PRN ORAL anxiety or outburst of anger 07/04/17 14:30 07/11/17 14:29 Morphine Sulfate (Morphine Sulfate) 2 mg Q4H PRN IVP Moderate Pain (Pain Scale 4-6) 07/04/17 14:30 07/11/17 14:29 07/05/17 01:35 Nitroglycerin (Ntg) 0.4 mg Q5M PRN SL Prn Chest Pain 07/04/17 14:30 08/03/17 14:29 Ondansetron HCl (Zofran) 4 mg Q6H PRN IVP Nausea & Vomiting 07/04/17 14:30 08/03/17 14:29 Polyethylene Glycol (Miralax) 17 gm DAILYPRN PRN ORAL Constipation 07/04/17 14:00 08/03/17 13:59 Temazepam (Restoril) 15 mg HSPRN PRN ORAL Insomnia 07/04/17 21:00 07/11/17 20:59 Claudette Simpson M.D. Jul 06, 2017 11:42
[2017-07-06 12:00] VITALS: BP 147/90
[2017-07-06] MEDS: Cephalexin 500mg cap ORAL SCH ×3 (14:02→21:45)
[2017-07-06 16:51] VITALS: BP 136/79
[2017-07-06] MEDS ORDERED: Tubing IV Secondary IV ONE (18:51)
[2017-07-06] MEDS ORDERED: NS 500ML ONE (18:51)
[2017-07-06 20:00] VITALS: BP 140/91
--- NOTE | 2017-07-06 22:00 | Consultation ---
DATE OF CONSULTATION: 07/06/2017 GASTROENTEROLOGY CONSULTATION CHIEF COMPLAINT: I was asked to see this patient by Dr. Morejon for evaluation of abnormal liver tests. HISTORY OF PRESENT ILLNESS: The patient is a pleasant 67-year-old white man, who comes into the hospital due to bilateral lower leg pain, infection, and cellulitis. The patient has been seen by Infectious Disease service and has been hospitalized on antibiotics. During the course of admission, he was noted to have abnormal liver tests and therefore, this consultation was generated. The patient denies any abdominal pain, nausea, or vomiting. He is able to eat well, who comes to the hospital due to lower extremity infection and cellulitis. The patient does not have any nausea or vomiting, but he does note some right upper quadrant abdominal pain. He thinks this could perhaps get worse with some meals although he is not sure. He has felt this right upper quadrant pain for about a month or two. He is able to eat all his meals. He does not have any vomiting. His bowel movements are regular and he cannot recall ever being told that he has gallstones before. His evaluation here, however, showed cholelithiasis and also there is some thickening of the gallbladder wall and some fluid around suggestive of possible significant gallbladder disease. HIDA scan has been ordered and is pending. PAST MEDICAL HISTORY: Remarkable for history of osteoarthritis, gastroesophageal reflux disease, and gallstones. ALLERGIES: None. FAMILY HISTORY: Noncontributory. SOCIAL HISTORY: The patient does not smoke or drink or use drugs. REVIEW OF SYSTEMS: Otherwise negative. PHYSICAL EXAMINATION: GENERAL: A pleasant white man, seen in his room. HEENT: Normocephalic and atraumatic. Sclerae anicteric. Oropharynx clear. NECK: Supple. Dentition is poor. CHEST: Clear to auscultation. CARDIOVASCULAR: Revealed regular rate. ABDOMEN: Soft with some mild right upper quadrant abdominal pain and possible mild Green sign on inspiration. EXTREMITIES: Revealed bilateral bandages where the wounds are. NEUROLOGIC: Grossly nonfocal. LABORATORY DATA: Noted. ASSESSMENT: This patient presents with abnormal liver tests as well as some right upper quadrant tenderness and an abnormal ultrasound. All of these together are consistent with chronic cholecystitis and perhaps in a pattern that is acutely worsening. I agree with the HIDA scan, but it should be a low threshold for considering cholecystectomy given the appearance of the gallbladder ultrasound as well as the patient's symptoms and physical examination. RECOMMENDATIONS: 1. Await HIDA scan. 2. Low-fat diet. 3. Follow laboratory parameters and exam. 4. Further recommendations to follow. Thank you for asking me to participate in the care of this patient. Jaimie Arvizu M.D. DR: KATIE JOB#: [id number] CC:
--- NOTE | 2017-07-06 22:20 | General Progress Note ---
Assessment/Plan Assessment/Plan 1. Pancytopenia, potentially this is secondary to either myelosuppression, either alcohol use, or other cause. --> Obtain anemia workup, thrombocytopenia workup, and obtain hepatitis, human immunodeficiency virus, and ultrasound of the abdomen. --> S/P Abdomen ultrasound revealed: Trace ascites. Cholelithiasis and sludge. Borderline thick walled gallbladder and some pericholecystic fluid. Possibly related to hepatocellular disease --> Wbc and platelet levels are low. Hemoglobin WNL. 2. Deep vein thrombosis history in the past, currently resolved. Most recent duplex reviewed. --> Over the past three studies, most recent duplexes have all been negative. --> On anticoagulation as needed. 3. Cellulitis of bilateral lower extremity, is on antibiotics as per ID Service , Dr. Mosley and Dr. Wilkins. 4. Left knee osteoarthritis. Continue to closely monitor. --> On pain control. 5. Hypertension. Systolic blood pressure goal less than 130. 6. Gastroesophageal reflux disease. Continue antacids as needed. Subjective Date patient seen: Jul 05, 2017 Constitutional: Denies: no symptoms, chills, diaphoresis, fever, malaise, weakness, other HEENT: Denies: no symptoms, eye pain, blurred vision, tearing, double vision, ear pain, ear discharge, nose pain, nose congestion, throat pain, throat swelling, mouth pain, mouth swelling, other Cardiovascular: Denies: no symptoms, chest pain, edema, irregular heart rate, lightheadedness, palpitations, syncope, other Respiratory: Denies: no symptoms, cough, orthopnea, shortness of breath, SOB with excertion, SOB at rest, sputum, stridor, wheezing, other Gastrointestinal/Abdominal: Denies: no symptoms, abdomen distended, abdominal pain, black stools, tarry stools, blood in stool, constipated, diarrhea, difficulty swallowing, nausea, poor appetite, poor fluid intake, rectal bleeding , vomiting, other Genitourinary: Denies: no symptoms, burning, discharge, frequency, flank pain, hematuria, incontinence, pain, urgency, other Neurologic/Psychiatric: Denies: no symptoms, anxiety, depressed, emotional problems, headache, numbness, paresthesia, pre-existing deficit, seizure, tingling, tremors, weakness, other Allergies: Coded Allergies: No Known Allergies (Unverified , 03/08/14) Subjective Leukopenia and thrombocytopenia. On pain control. Objective Last 24 Hour Vital Signs Date Time Temp Pulse Resp B/P (MAP) Pulse Ox O2 Delivery O2 Flow Rate FiO2 07/06/17 20:00 97.7 87 20 140/91 96 97.7 07/06/17 16:51 98.0 77 18 136/79 94 Room Air 98.0 07/06/17 12:00 97.5 89 19 147/90 97 97.5 07/06/17 08:00 97.6 85 19 137/89 98 97.6 07/06/17 07:45 72 Room Air 21 07/06/17 04:00 97.7 77 20 141/76 100 97.7 07/06/17 00:00 96.9 74 19 126/74 93 96.9 Intake and Output 07/05/17 07/06/17 19:00 07:00 Intake Total 490 ml 440 ml Output Total 900 ml Balance 490 ml -460 ml Intake Oral 380 ml IV Total 110 ml 440 ml Output Urine Total 900 ml # Voids 3 2 Laboratory Tests 07/06/17 08:20: White Blood Count 3.1L, Red Blood Count 4.73, Hemoglobin 14.8, Hematocrit 43.1, Mean Corpuscular Volume 91, Mean Corpuscular Hemoglobin 31.2H, Mean Corpuscular Hemoglobin Concent 34.3, Red Cell Distribution Width 12.3, Platelet Count 118L, Mean Platelet Volume 8.7, Neutrophils (%) (Auto) , Lymphocytes (%) (Auto) , Monocytes (%) (Auto) , Eosinophils (%) (Auto) , Basophils (%) (Auto) , Differential Total Cells Counted 100, Neutrophils % (Manual) 60, Lymphocytes % ( Manual) 31, Monocytes % (Manual) 9, Eosinophils % (Manual) 0, Basophils % ( Manual) 0, Band Neutrophils 0, Platelet Estimate DecreasedL, Platelet Morphology Normal, Sodium Level 138, Potassium Level 3.5, Chloride Level 106, Carbon Dioxide Level 27, Anion Gap 5, Blood Urea Nitrogen 14, Creatinine 1.1, Estimat Glomerular Filtration Rate > 60, Glucose Level 156H, Calcium Level 8.2L , Total Bilirubin 2.7H, Direct Bilirubin 1.5H, Aspartate Amino Transf (AST/SGOT ) 70H, Alanine Aminotransferase (ALT/SGPT) 63, Alkaline Phosphatase 273H, Total Creatine Kinase 101, Total Protein 6.5, Albumin 2.8L, Globulin 3.7, Albumin/ Globulin Ratio 0.8L Height (Feet): 5 Height (Inches): 8.00 Weight (Pounds): 165 General Appearance: confused Respiratory/Chest: decreased breath sounds Abdomen: soft Truman Proctor MD Jul 06, 2017 22:20
[2017-07-07] VITALS: BP 144/91
[2017-07-07 04:00] VITALS: BP 128/92
[2017-07-07 08:00] VITALS: BP 150/99
[2017-07-07] MEDS: Heparin 5000 units/ml inj SUBQ SCH ×2 (09:00→21:00)
[2017-07-07] MEDS: DULoxetine 30mg cap ORAL SCH (09:30)
[2017-07-07] MEDS: Cephalexin 500mg cap ORAL SCH ×4 (09:30→21:25)
--- NOTE | 2017-07-07 11:59 | Pulmonology Progress Note ---
Assessment/Plan Assessment/Plan ASSESSMENT Cellulitis BLE Venous stasis DONNA vs CRI Transaminitis cholelithiasis r/o acute ashli possible cirrhosis AAA 3.3 cm HTN homeless [facility] OF C[facility] floor abx ID follows , wound + Providencia, Enterococci, SCON Venous Duplex BLE negative elevate legs wound care as per wound nurse recs HIV screen (due to low PLT and leukopenia) s/p IVF abdominal US: Cholelithiasis and sludge. Borderline thick walled gallbladder and some pericholecystic fluid. Possibly related to hepatocellular disease given the presence of ascites but raises the possibility of acute cholecystitis. Consider nuclear medicine hepatobiliary scan for further evaluation if there is high clinical suspicion 3.3 cm saccular distal abdominal aortic aneurysm Questionable hepatic surface nodularity, could indicate early cirrhotic change Bilateral renal or cortical and possible parapelvic cysts. No hydronephrosis Trend LFT - with small trend down hepatitis panel pending check AFP ? ETOH abuse HIDA scan GI eval- dr Morillo notified on 07/06 for AAA- size small, accidental finding, no complains, needs periodic 6 months check with abdominal US PT/OT SW for placement case discussed and evaluated by supervising physician Subjective Allergies: Coded Allergies: No Known Allergies (Unverified , 03/08/14) Subjective denies CP SOB intermittent leg pain no abdominal pain, some nausea afebrile no leucocytosis Objective Last 24 Hour Vital Signs Date Time Temp Pulse Resp B/P (MAP) Pulse Ox O2 Delivery O2 Flow Rate FiO2 07/07/17 08:00 97.8 82 20 150/99 97 97.8 07/07/17 06:51 77 16 Room Air 21 07/07/17 04:00 97.8 76 20 128/92 97 97.8 07/07/17 00:00 97.1 76 20 144/91 96 97.1 07/06/17 20:00 97.7 87 20 140/91 96 97.7 07/06/17 19:10 74 Room Air 21 07/06/17 16:51 98.0 77 18 136/79 94 Room Air 98.0 07/06/17 12:00 97.5 89 19 147/90 97 97.5 Intake and Output 07/06/17 07/07/17 19:00 07:00 Intake Total 830 ml Output Total 800 ml 600 ml Balance 30 ml -600 ml Intake Oral 830 ml Output Urine Total 800 ml 600 ml # Voids 2 Objective General Appearance: no acute distress HEENT: normocephalic, atraumatic, anicteric, mucous membranes moist Respiratory/Chest: normal breath sounds, no respiratory distress Cardiovascular: normal rate, no JVD Abdomen: soft, non tender Extremities: pedal pulses normal, other - +1 edema BLE with bilateral leg ulcers Neurologic/Psychiatric: alert, responsive Musculoskeletal: normal muscle bulk Current Medications Medications (Trade) Dose Ordered Sig/Berna Route PRN Reason Start Time Stop Time Status Last Admin Dose Admin Acetaminophen (Tylenol) 650 mg Q4H PRN ORAL fever>100.5 07/04/17 14:30 08/03/17 14:29 Albuterol/ Ipratropium (Albuterol/ Ipratropium) 3 ml Q4H PRN HHN Shortness of Breath 07/04/17 15:00 07/09/17 14:59 Cephalexin (Keflex) 500 mg FOUR TIMES A DAY ORAL 07/06/17 13:00 07/13/17 12:59 07/07/17 09:30 Dextrose (Dextrose 50%) STAT PRN IV Hypoglycemia 07/04/17 14:30 08/03/17 14:29 Duloxetine HCl (Cymbalta) 60 mg DAILY ORAL 07/06/17 09:00 07/13/17 08:59 07/07/17 09:30 Heparin Sodium (Porcine) (Heparin 5000 units/ml) 5,000 units EVERY 12 HOURS SUBQ 07/04/17 21:00 08/03/17 20:59 07/04/17 21:49 Lorazepam (Ativan) 0.5 mg BID PRN ORAL anxiety or outburst of anger 07/04/17 14:30 07/11/17 14:29 Morphine Sulfate (Morphine Sulfate) 2 mg Q4H PRN IVP Moderate Pain (Pain Scale 4-6) 07/04/17 14:30 07/11/17 14:29 07/05/17 01:35 Nitroglycerin (Ntg) 0.4 mg Q5M PRN SL Prn Chest Pain 07/04/17 14:30 08/03/17 14:29 Ondansetron HCl (Zofran) 4 mg Q6H PRN IVP Nausea & Vomiting 07/04/17 14:30 08/03/17 14:29 Polyethylene Glycol (Miralax) 17 gm DAILYPRN PRN ORAL Constipation 07/04/17 14:00 08/03/17 13:59 Temazepam (Restoril) 15 mg HSPRN PRN ORAL Insomnia 07/04/17 21:00 07/11/17 20:59 Jimmy ([facility])Maribel NP Jul 07, 2017 11:59
[2017-07-07 12:00] VITALS: BP 117/90
[2017-07-07 16:00] VITALS: BP 137/89
[2017-07-07 17:53] LABS: HEMOGLOBIN 17.1 G/DL (14.2-18.0); LYMPHOCYTES % (AUTO) 28.7 % (20.0-45.0); MEAN CORPUSCULAR VOLUME 91 FL (80-99); MONOCYTES % (AUTO) 7.5 % (1.0-10.0); NEUTROPHILS % (AUTO) 62.9 % (45.0-75.0); PLATELET COUNT 147 K/UL (150-450); RED BLOOD COUNT 5.39 M/UL (4.70-6.10); RED CELL DISTRIBUTION WIDTH 12.2 % (11.6-14.8); WHITE BLOOD COUNT 4.8 K/UL (4.8-10.8)
--- NOTE | 2017-07-07 18:07 | General Progress Note ---
Assessment/Plan Assessment/Plan Assessment - abnormal GB - b/l LE skin infection - HTN Recommendations - await HIDA - follow symptoms and exam - antibiotics Subjective Allergies: Coded Allergies: No Known Allergies (Unverified , 03/08/14) Subjective Feels OK does not voice any abdominal complaints Objective Last 24 Hour Vital Signs Date Time Temp Pulse Resp B/P (MAP) Pulse Ox O2 Delivery O2 Flow Rate FiO2 07/07/17 16:00 97.3 85 20 137/89 97 97.3 07/07/17 12:00 97.7 78 20 117/90 97 97.7 07/07/17 08:00 97.8 82 20 150/99 97 97.8 07/07/17 06:51 77 16 Room Air 21 07/07/17 04:00 97.8 76 20 128/92 97 97.8 07/07/17 00:00 97.1 76 20 144/91 96 97.1 07/06/17 20:00 97.7 87 20 140/91 96 97.7 07/06/17 19:10 74 Room Air 21 Intake and Output 07/06/17 07/07/17 19:00 07:00 Intake Total 830 ml Output Total 800 ml 600 ml Balance 30 ml -600 ml Intake Oral 830 ml Output Urine Total 800 ml 600 ml # Voids 2 Laboratory Tests 07/07/17 17:00: White Blood Count 4.8#, Red Blood Count 5.39, Hemoglobin 17.1, Hematocrit 49.0, Mean Corpuscular Volume 91, Mean Corpuscular Hemoglobin 31.8H, Mean Corpuscular Hemoglobin Concent 35.0, Red Cell Distribution Width 12.2, Platelet Count 147L, Mean Platelet Volume 8.4, Neutrophils (%) (Auto) 62.9, Lymphocytes (%) (Auto) 28.7, Monocytes (%) (Auto) 7.5, Eosinophils (%) (Auto) 0.0, Basophils (%) (Auto ) 1.0, Sodium Level [Pending], Potassium Level [Pending], Chloride Level [ Pending], Carbon Dioxide Level [Pending], Blood Urea Nitrogen [Pending], Creatinine [Pending], Estimat Glomerular Filtration Rate [Pending], Glucose Level [Pending], Calcium Level [Pending], Total Bilirubin [Pending], Aspartate Amino Transf (AST/SGOT) [Pending], Alanine Aminotransferase (ALT/SGPT) [Pending] , Alkaline Phosphatase [Pending], Total Protein [Pending], Albumin [Pending], Globulin [Pending], Alpha Fetoprotein [Pending], Vitamin B12 Level [Pending], Thyroid Stimulating Hormone (TSH) [Pending], Hepatitis A IgM Antibody [Pending] , Hepatitis B Surface Antigen [Pending], Hepatitis B Core IgM Antibody [Pending] , Hepatitis C Antibody [Pending], HIV (1&2) Antibody Rapid [Pending] Height (Feet): 5 Height (Inches): 8.00 Weight (Pounds): 165 Objective Elderly WM NCAT supple CTA RRR abd soft NT (+) bandages on MERLYN SCHAFFER Jul 07, 2017 18:06
[2017-07-07 18:27] LABS: ALANINE AMINOTRANSFERASE 68 U/L (12-78); ALBUMIN 3.2 G/DL (3.4-5.0); ALBUMIN/GLOBULIN RATIO 0.8 (1.0-2.7); ALKALINE PHOSPHATASE 312 U/L (46-116); ANION GAP 9 mmol/L (5-15); ASPARTATE AMINO TRANSFERASE 56 U/L (15-37); BILIRUBIN,TOTAL 1.8 MG/DL (0.2-1.0); BLOOD UREA NITROGEN 22 mg/dL (7-18); CALCIUM 8.5 MG/DL (8.5-10.1); CARBON DIOXIDE 27 MMOL/L (21-32); CHLORIDE 100 MMOL/L (98-107); CREATININE 1.2 MG/DL (0.55-1.30); POTASSIUM 3.8 MMOL/L (3.5-5.1); SODIUM 136 MMOL/L (136-145)
[2017-07-07 18:33] LABS: BILIRUBIN,DIRECT 0.7 MG/DL (0.0-0.3)
[2017-07-07 20:00] VITALS: BP 132/94
[2017-07-08] VITALS: BP 147/99
--- NOTE | 2017-07-08 00:06 | General Progress Note ---
Assessment/Plan Assessment/Plan 1. Pancytopenia, potentially this is secondary to either myelosuppression, either alcohol use, or other cause. --> Obtain anemia workup, thrombocytopenia workup, and obtain hepatitis, human immunodeficiency virus, and ultrasound of the abdomen. --> S/P Abdomen ultrasound revealed: Trace ascites. Cholelithiasis and sludge. Borderline thick walled gallbladder and some pericholecystic fluid. Possibly related to hepatocellular disease --> Wbc and platelet levels improved from yesterday. --> Hemoglobin WNL. 2. Deep vein thrombosis history in the past, currently resolved. Most recent duplex reviewed. --> Over the past three studies, most recent duplexes have all been negative. --> On anticoagulation as needed. 3. Cellulitis of bilateral lower extremity, is on antibiotics as per ID Service , Dr. Mosley and Dr. Wilkins. 4. Left knee osteoarthritis. Continue to closely monitor. --> On pain control. 5. Hypertension. Systolic blood pressure goal less than 130. 6. Gastroesophageal reflux disease. Continue antacids as needed. Subjective Date patient seen: Jul 07, 2017 Constitutional: Denies: no symptoms, chills, diaphoresis, fever, malaise, weakness, other HEENT: Denies: no symptoms, eye pain, blurred vision, tearing, double vision, ear pain, ear discharge, nose pain, nose congestion, throat pain, throat swelling, mouth pain, mouth swelling, other Cardiovascular: Denies: no symptoms, chest pain, edema, irregular heart rate, lightheadedness, palpitations, syncope, other Respiratory: Denies: no symptoms, cough, orthopnea, shortness of breath, SOB with excertion, SOB at rest, sputum, stridor, wheezing, other Gastrointestinal/Abdominal: Denies: no symptoms, abdomen distended, abdominal pain, black stools, tarry stools, blood in stool, constipated, diarrhea, difficulty swallowing, nausea, poor appetite, poor fluid intake, rectal bleeding , vomiting, other Genitourinary: Denies: no symptoms, burning, discharge, frequency, flank pain, hematuria, incontinence, pain, urgency, other Neurologic/Psychiatric: Denies: no symptoms, anxiety, depressed, emotional problems, headache, numbness, paresthesia, pre-existing deficit, seizure, tingling, tremors, weakness, other Hematologic/Lymphatic: Reports: anemia Allergies: Coded Allergies: No Known Allergies (Unverified , 03/08/14) Subjective WBC and platelet levels improved. No fever or chills. Objective Last 24 Hour Vital Signs Date Time Temp Pulse Resp B/P (MAP) Pulse Ox O2 Delivery O2 Flow Rate FiO2 07/07/17 20:24 74 16 Room Air 21 07/07/17 20:00 97.2 121 20 132/94 97 97.2 07/07/17 16:00 97.3 85 20 137/89 97 97.3 07/07/17 12:00 97.7 78 20 117/90 97 97.7 07/07/17 08:00 97.8 82 20 150/99 97 97.8 07/07/17 06:51 77 16 Room Air 21 07/07/17 04:00 97.8 76 20 128/92 97 97.8 Intake and Output 07/07/17 07/08/17 19:00 07:00 Intake Total 760 ml Output Total 700 ml Balance 60 ml Intake Oral 760 ml Output Urine Total 700 ml # Voids 3 Laboratory Tests 07/07/17 17:00: White Blood Count 4.8#, Red Blood Count 5.39, Hemoglobin 17.1, Hematocrit 49.0, Mean Corpuscular Volume 91, Mean Corpuscular Hemoglobin 31.8H, Mean Corpuscular Hemoglobin Concent 35.0, Red Cell Distribution Width 12.2, Platelet Count 147L, Mean Platelet Volume 8.4, Neutrophils (%) (Auto) 62.9, Lymphocytes (%) (Auto) 28.7, Monocytes (%) (Auto) 7.5, Eosinophils (%) (Auto) 0.0, Basophils (%) (Auto ) 1.0, Sodium Level 136, Potassium Level 3.8, Chloride Level 100, Carbon Dioxide Level 27, Anion Gap 9, Blood Urea Nitrogen 22H, Creatinine 1.2, Estimat Glomerular Filtration Rate > 60, Glucose Level 101, Calcium Level 8.5, Total Bilirubin 1.8H, Direct Bilirubin 0.7H, Aspartate Amino Transf (AST/SGOT) 56H, Alanine Aminotransferase (ALT/SGPT) 68, Alkaline Phosphatase 312H, Total Protein 7.4, Albumin 3.2L, Globulin 4.2, Albumin/Globulin Ratio 0.8L, Alpha Fetoprotein [Pending], Vitamin B12 Level 548, Thyroid Stimulating Hormone (TSH) 4.274H, Hepatitis A IgM Antibody [Pending], Hepatitis B Surface Antigen [Pending ], Hepatitis B Core IgM Antibody [Pending], Hepatitis C Antibody [Pending], HIV (1&2) Antibody Rapid Negative Height (Feet): 5 Height (Inches): 8.00 Weight (Pounds): 165 General Appearance: no apparent distress Respiratory/Chest: decreased breath sounds Abdomen: soft Truman Proctor MD Jul 08, 2017 00:06
[2017-07-08 04:00] VITALS: BP 138/90
[2017-07-08 07:58] LABS: BASOPHILS % (AUTO) 1.1 % (0.0-2.0); EOSINOPHILS % (AUTO) 0.1 % (0.0-3.0); HEMATOCRIT 47.6 % (42.0-52.0); HEMOGLOBIN 16.6 G/DL (14.2-18.0); LYMPHOCYTES % (AUTO) 29.7 % (20.0-45.0); MEAN CORPUSCULAR VOLUME 90 FL (80-99); NEUTROPHILS % (AUTO) 62.1 % (45.0-75.0); PLATELET COUNT 138 K/UL (150-450); RED BLOOD COUNT 5.28 M/UL (4.70-6.10); RED CELL DISTRIBUTION WIDTH 12.3 % (11.6-14.8); WHITE BLOOD COUNT 5.4 K/UL (4.8-10.8)
[2017-07-08 08:25] LABS: ALANINE AMINOTRANSFERASE 65 U/L (12-78); ALBUMIN 3.2 G/DL (3.4-5.0); ALBUMIN/GLOBULIN RATIO 0.8 (1.0-2.7); ALKALINE PHOSPHATASE 298 U/L (46-116); ANION GAP 7 mmol/L (5-15); ASPARTATE AMINO TRANSFERASE 53 U/L (15-37); BILIRUBIN,TOTAL 1.7 MG/DL (0.2-1.0); BLOOD UREA NITROGEN 23 mg/dL (7-18); CALCIUM 8.6 MG/DL (8.5-10.1); CARBON DIOXIDE 27 MMOL/L (21-32); CHLORIDE 103 MMOL/L (98-107); POTASSIUM 3.6 MMOL/L (3.5-5.1); SODIUM 137 MMOL/L (136-145)
[2017-07-08 08:26] LABS: BILIRUBIN,DIRECT 0.5 MG/DL (0.0-0.3)
[2017-07-08] MEDS: Cephalexin 500mg cap ORAL SCH ×4 (08:37→20:43)
[2017-07-08] MEDS: Heparin 5000 units/ml inj SUBQ SCH ×2 (08:37→21:00)
[2017-07-08] MEDS: DULoxetine 30mg cap ORAL SCH (08:37)
--- NOTE | 2017-07-08 09:47 | Pulmonology Progress Note ---
Assessment/Plan Assessment/Plan ASSESSMENT Cellulitis BLE Venous stasis DONNA vs CRI Transaminitis cholelithiasis r/o acute ashli possible cirrhosis AAA 3.3 cm HTN homeless [facility] OF C[facility] floor abx ID follows , wound + Providencia, Enterococci, SCON Venous Duplex BLE negative elevate legs wound care as per wound nurse recs HIV screen (due to low PLT and leukopenia)-negative s/p IVF abdominal US: Cholelithiasis and sludge. Borderline thick walled gallbladder and some pericholecystic fluid. Possibly related to hepatocellular disease given the presence of ascites but raises the possibility of acute cholecystitis. Consider nuclear medicine hepatobiliary scan for further evaluation if there is high clinical suspicion 3.3 cm saccular distal abdominal aortic aneurysm Questionable hepatic surface nodularity, could indicate early cirrhotic change Bilateral renal or cortical and possible parapelvic cysts. No hydronephrosis Trend LFT - with trend down hepatitis panel pending AFP pending ? ETOH abuse HIDA scan -refused tolerates diet no n/v/abd pain, LFT/bili trending down GI follows now for AAA- size small, accidental finding, no complains, needs periodic 6 months check with abdominal US elevated TSH with normal free T 4 and T3 PT/OT SW for placement dc plan on oral abx if ok with GI addendum: HIDA done negative dc on oral abx as per ID recs case discussed and evaluated by supervising physician Subjective Allergies: Coded Allergies: No Known Allergies (Unverified , 03/08/14) Subjective denies CP SOB intermittent leg pain no abdominal pain, some nausea afebrile no leucocytosis declined HIDA scan Objective Last 24 Hour Vital Signs Date Time Temp Pulse Resp B/P (MAP) Pulse Ox O2 Delivery O2 Flow Rate FiO2 07/08/17 07:00 79 18 Room Air 21 07/08/17 04:00 97.3 77 20 138/90 94 97.3 07/08/17 00:00 97.6 78 20 147/99 95 97.6 07/07/17 20:24 74 16 Room Air 21 07/07/17 20:00 97.2 121 20 132/94 97 97.2 07/07/17 16:00 97.3 85 20 137/89 97 97.3 07/07/17 12:00 97.7 78 20 117/90 97 97.7 Intake and Output 07/07/17 07/08/17 19:00 07:00 Intake Total 760 ml Output Total 700 ml 1100 ml Balance 60 ml -1100 ml Intake Oral 760 ml Output Urine Total 700 ml 1100 ml # Voids 3 Objective General Appearance: no acute distress HEENT: normocephalic, atraumatic, anicteric, mucous membranes moist Respiratory/Chest: normal breath sounds, no respiratory distress Cardiovascular: normal rate, no JVD Abdomen: soft, non tender Extremities: pedal pulses normal, other - +1 edema BLE with bilateral leg ulcers Neurologic/Psychiatric: alert, responsive Musculoskeletal: normal muscle bulk Laboratory Tests 07/07/17 17:00: White Blood Count 4.8#, Red Blood Count 5.39, Hemoglobin 17.1, Hematocrit 49.0, Mean Corpuscular Volume 91, Mean Corpuscular Hemoglobin 31.8H, Mean Corpuscular Hemoglobin Concent 35.0, Red Cell Distribution Width 12.2, Platelet Count 147L, Mean Platelet Volume 8.4, Neutrophils (%) (Auto) 62.9, Lymphocytes (%) (Auto) 28.7, Monocytes (%) (Auto) 7.5, Eosinophils (%) (Auto) 0.0, Basophils (%) (Auto ) 1.0, Sodium Level 136, Potassium Level 3.8, Chloride Level 100, Carbon Dioxide Level 27, Anion Gap 9, Blood Urea Nitrogen 22H, Creatinine 1.2, Estimat Glomerular Filtration Rate > 60, Glucose Level 101, Calcium Level 8.5, Total Bilirubin 1.8H, Direct Bilirubin 0.7H, Aspartate Amino Transf (AST/SGOT) 56H, Alanine Aminotransferase (ALT/SGPT) 68, Alkaline Phosphatase 312H, Total Protein 7.4, Albumin 3.2L, Globulin 4.2, Albumin/Globulin Ratio 0.8L, Alpha Fetoprotein [Pending], Vitamin B12 Level 548, Thyroid Stimulating Hormone (TSH) 4.274H, Hepatitis A IgM Antibody [Pending], Hepatitis B Surface Antigen [Pending ], Hepatitis B Core IgM Antibody [Pending], Hepatitis C Antibody [Pending], HIV (1&2) Antibody Rapid Negative 07/08/17 06:30: White Blood Count 5.4, Red Blood Count 5.28, Hemoglobin 16.6, Hematocrit 47.6, Mean Corpuscular Volume 90, Mean Corpuscular Hemoglobin 31.5H, Mean Corpuscular Hemoglobin Concent 34.9, Red Cell Distribution Width 12.3, Platelet Count 138L, Mean Platelet Volume 9.1, Neutrophils (%) (Auto) 62.1, Lymphocytes (%) (Auto) 29.7, Monocytes (%) (Auto) 7.0, Eosinophils (%) (Auto) 0.1, Basophils (%) (Auto ) 1.1, Sodium Level 137, Potassium Level 3.6, Chloride Level 103, Carbon Dioxide Level 27, Anion Gap 7, Blood Urea Nitrogen 23H, Creatinine 1.0, Estimat Glomerular Filtration Rate > 60, Glucose Level 96, Calcium Level 8.6, Total Bilirubin 1.7H, Direct Bilirubin 0.5H, Aspartate Amino Transf (AST/SGOT) 53H, Alanine Aminotransferase (ALT/SGPT) 65, Alkaline Phosphatase 298H, Total Protein 7.3, Albumin 3.2L, Globulin 4.1, Albumin/Globulin Ratio 0.8L, Free Thyroxine 1.14, Free Triiodothyronine 2.3 Current Medications Medications (Trade) Dose Ordered Sig/Berna Route PRN Reason Start Time Stop Time Status Last Admin Dose Admin Acetaminophen (Tylenol) 650 mg Q4H PRN ORAL fever>100.5 07/04/17 14:30 08/03/17 14:29 Albuterol/ Ipratropium (Albuterol/ Ipratropium) 3 ml Q4H PRN HHN Shortness of Breath 07/04/17 15:00 07/09/17 14:59 Cephalexin (Keflex) 500 mg FOUR TIMES A DAY ORAL 07/06/17 13:00 07/13/17 12:59 07/08/17 08:37 Dextrose (Dextrose 50%) STAT PRN IV Hypoglycemia 07/04/17 14:30 08/03/17 14:29 Duloxetine HCl (Cymbalta) 60 mg DAILY ORAL 07/06/17 09:00 07/13/17 08:59 07/08/17 08:37 Heparin Sodium (Porcine) (Heparin 5000 units/ml) 5,000 units EVERY 12 HOURS SUBQ 07/04/17 21:00 08/03/17 20:59 07/04/17 21:49 Lorazepam (Ativan) 0.5 mg BID PRN ORAL anxiety or outburst of anger 07/04/17 14:30 07/11/17 14:29 Morphine Sulfate (Morphine Sulfate) 2 mg Q4H PRN IVP Moderate Pain (Pain Scale 4-6) 07/04/17 14:30 07/11/17 14:29 07/05/17 01:35 Nitroglycerin (Ntg) 0.4 mg Q5M PRN SL Prn Chest Pain 07/04/17 14:30 08/03/17 14:29 Ondansetron HCl (Zofran) 4 mg Q6H PRN IVP Nausea & Vomiting 07/04/17 14:30 08/03/17 14:29 Polyethylene Glycol (Miralax) 17 gm DAILYPRN PRN ORAL Constipation 07/04/17 14:00 08/03/17 13:59 Temazepam (Restoril) 15 mg HSPRN PRN ORAL Insomnia 07/04/17 21:00 07/11/17 20:59 [facility]Mairbel NP Jul 08, 2017 09:47
--- NOTE | 2017-07-08 11:44 | GI Progress Note ---
Assessment/Plan Problems: (1) Elevated liver function tests ICD Codes: R79.89 - Other specified abnormal findings of blood chemistry SNOMED: 182615808, 880771646 (2) Abdominal pain ICD Codes: R10.9 - Unspecified abdominal pain SNOMED: 54545603 (3) Cellulitis ICD Codes: L03.90 - Cellulitis, unspecified SNOMED: 948986131 Qualifiers: Qualified Codes: L03.119 - Cellulitis of unspecified part of limb Status: stable Status Narrative Discussed with Dr. Morillo. Assessment/Plan Assessment - abnormal GB - b/l LE skin infection - HTN - refused amlabs Recommendations - await HIDA >> pt agreed - follow symptoms and exam - antibiotics - fu hep panel Subjective Subjective BLE cellulitis Objective Last 24 Hour Vital Signs Date Time Temp Pulse Resp B/P (MAP) Pulse Ox O2 Delivery O2 Flow Rate FiO2 07/08/17 07:00 79 18 Room Air 21 07/08/17 04:00 97.3 77 20 138/90 94 97.3 07/08/17 00:00 97.6 78 20 147/99 95 97.6 07/07/17 20:24 74 16 Room Air 21 07/07/17 20:00 97.2 121 20 132/94 97 97.2 07/07/17 16:00 97.3 85 20 137/89 97 97.3 07/07/17 12:00 97.7 78 20 117/90 97 97.7 Intake and Output 07/07/17 07/08/17 19:00 07:00 Intake Total 760 ml Output Total 700 ml 1100 ml Balance 60 ml -1100 ml Intake Oral 760 ml Output Urine Total 700 ml 1100 ml # Voids 3 Laboratory Tests Test 07/07/17 17:00 07/08/17 06:30 White Blood Count 4.8 K/UL (4.8-10.8) # 5.4 K/UL (4.8-10.8) Red Blood Count 5.39 M/UL (4.70-6.10) 5.28 M/UL (4.70-6.10) Hemoglobin 17.1 G/DL (14.2-18.0) 16.6 G/DL (14.2-18.0) Hematocrit 49.0 % (42.0-52.0) 47.6 % (42.0-52.0) Mean Corpuscular Volume 91 FL (80-99) 90 FL (80-99) Mean Corpuscular Hemoglobin 31.8 PG (27.0-31.0) H 31.5 PG (27.0-31.0) H Mean Corpuscular Hemoglobin Concent 35.0 G/DL (32.0-36.0) 34.9 G/DL (32.0-36.0) Red Cell Distribution Width 12.2 % (11.6-14.8) 12.3 % (11.6-14.8) Platelet Count 147 K/UL (150-450) L 138 K/UL (150-450) L Mean Platelet Volume 8.4 FL (6.5-10.1) 9.1 FL (6.5-10.1) Neutrophils (%) (Auto) 62.9 % (45.0-75.0) 62.1 % (45.0-75.0) Lymphocytes (%) (Auto) 28.7 % (20.0-45.0) 29.7 % (20.0-45.0) Monocytes (%) (Auto) 7.5 % (1.0-10.0) 7.0 % (1.0-10.0) Eosinophils (%) (Auto) 0.0 % (0.0-3.0) 0.1 % (0.0-3.0) Basophils (%) (Auto) 1.0 % (0.0-2.0) 1.1 % (0.0-2.0) Sodium Level 136 MMOL/L (136-145) 137 MMOL/L (136-145) Potassium Level 3.8 MMOL/L (3.5-5.1) 3.6 MMOL/L (3.5-5.1) Chloride Level 100 MMOL/L (98-107) 103 MMOL/L (98-107) Carbon Dioxide Level 27 MMOL/L (21-32) 27 MMOL/L (21-32) Anion Gap 9 mmol/L (5-15) 7 mmol/L (5-15) Blood Urea Nitrogen 22 mg/dL (7-18) H 23 mg/dL (7-18) H Creatinine 1.2 MG/DL (0.55-1.30) 1.0 MG/DL (0.55-1.30) Estimat Glomerular Filtration Rate > 60 mL/min (>60) > 60 mL/min (>60) Glucose Level 101 MG/DL (74-106) 96 MG/DL (74-106) Calcium Level 8.5 MG/DL (8.5-10.1) 8.6 MG/DL (8.5-10.1) Total Bilirubin 1.8 MG/DL (0.2-1.0) H 1.7 MG/DL (0.2-1.0) H Direct Bilirubin 0.7 MG/DL (0.0-0.3) H 0.5 MG/DL (0.0-0.3) H Aspartate Amino Transf (AST/SGOT) 56 U/L (15-37) H 53 U/L (15-37) H Alanine Aminotransferase (ALT/SGPT) 68 U/L (12-78) 65 U/L (12-78) Alkaline Phosphatase 312 U/L (46-116) H 298 U/L (46-116) H Total Protein 7.4 G/DL (6.4-8.2) 7.3 G/DL (6.4-8.2) Albumin 3.2 G/DL (3.4-5.0) L 3.2 G/DL (3.4-5.0) L Globulin 4.2 g/dL 4.1 g/dL Albumin/Globulin Ratio 0.8 (1.0-2.7) L 0.8 (1.0-2.7) L Alpha Fetoprotein Pending Vitamin B12 Level 548 PG/ML (193-986) Thyroid Stimulating Hormone (TSH) 4.274 uiU/mL (0.358-3.740) Hepatitis A IgM Antibody Pending Hepatitis B Surface Antigen Pending Hepatitis B Core IgM Antibody Pending Hepatitis C Antibody Pending HIV (1&2) Antibody Rapid Negative (NEGATIVE) Free Thyroxine 1.14 NG/DL (0.76-1.46) Free Triiodothyronine 2.3 pg/mL (2.3-4.2) Height (Feet): 5 Height (Inches): 8.00 Weight (Pounds): 165 General Appearance: WD/WN, no apparent distress, alert Cardiovascular: normal rate Respiratory/Chest: normal breath sounds, no respiratory distress Abdominal Exam: normal bowel sounds, non tender, soft Extremities: non-tender Objective BLE cellulitis Isamar Sneed N.P. Jul 08, 2017 11:44
[2017-07-08] MEDS: Morphine Sulfate 2mg/ml Inj IVP PRN (12:00)
--- NOTE | 2017-07-08 13:32 | Diagnostic Imaging Report ---
Indications: Right upper quadrant pain Technique: IV administration 5.4 mCi 99 M technetium Choletec. Serial images obtained over the abdomen for 2 hrs. At one hour, 2 mg of morphine given IV Comparison: None Findings: Prompt tracer uptake within the liver. Extrahepatic bile ducts are seen at 7 minutes. Excretion into the duodenum demonstrated at 10 minutes. Gallbladder visualized at roughly 67 minutes, shortly after morphine administration. Impression: Negative. No evidence of cystic duct or common bile duct obstruction
[2017-07-08] MEDS ORDERED: CEPHALEXIN500 MG ORAL (14:39)
--- NOTE | 2017-07-08 15:22 | General Progress Note ---
Assessment/Plan Assessment/Plan mdd anxiety cont Cymbalta the pt is not at imminent dts/dto Subjective Date patient seen: Jul 08, 2017 Neurologic/Psychiatric: Reports: anxiety, depressed, emotional problems Allergies: Coded Allergies: No Known Allergies (Unverified , 03/08/14) Objective Last 24 Hour Vital Signs Date Time Temp Pulse Resp B/P (MAP) Pulse Ox O2 Delivery O2 Flow Rate FiO2 07/08/17 07:00 79 18 Room Air 21 07/08/17 04:00 97.3 77 20 138/90 94 97.3 07/08/17 00:00 97.6 78 20 147/99 95 97.6 07/07/17 20:24 74 16 Room Air 21 07/07/17 20:00 97.2 121 20 132/94 97 97.2 07/07/17 16:00 97.3 85 20 137/89 97 97.3 Intake and Output 07/07/17 07/08/17 19:00 07:00 Intake Total 760 ml Output Total 700 ml 1100 ml Balance 60 ml -1100 ml Intake Oral 760 ml Output Urine Total 700 ml 1100 ml # Voids 3 Laboratory Tests 07/07/17 17:00: White Blood Count 4.8#, Red Blood Count 5.39, Hemoglobin 17.1, Hematocrit 49.0, Mean Corpuscular Volume 91, Mean Corpuscular Hemoglobin 31.8H, Mean Corpuscular Hemoglobin Concent 35.0, Red Cell Distribution Width 12.2, Platelet Count 147L, Mean Platelet Volume 8.4, Neutrophils (%) (Auto) 62.9, Lymphocytes (%) (Auto) 28.7, Monocytes (%) (Auto) 7.5, Eosinophils (%) (Auto) 0.0, Basophils (%) (Auto ) 1.0, Sodium Level 136, Potassium Level 3.8, Chloride Level 100, Carbon Dioxide Level 27, Anion Gap 9, Blood Urea Nitrogen 22H, Creatinine 1.2, Estimat Glomerular Filtration Rate > 60, Glucose Level 101, Calcium Level 8.5, Total Bilirubin 1.8H, Direct Bilirubin 0.7H, Aspartate Amino Transf (AST/SGOT) 56H, Alanine Aminotransferase (ALT/SGPT) 68, Alkaline Phosphatase 312H, Total Protein 7.4, Albumin 3.2L, Globulin 4.2, Albumin/Globulin Ratio 0.8L, Alpha Fetoprotein [Pending], Vitamin B12 Level 548, Thyroid Stimulating Hormone (TSH) 4.274H, Hepatitis A IgM Antibody [Pending], Hepatitis B Surface Antigen [Pending ], Hepatitis B Core IgM Antibody [Pending], Hepatitis C Antibody [Pending], HIV (1&2) Antibody Rapid Negative 07/08/17 06:30: White Blood Count 5.4, Red Blood Count 5.28, Hemoglobin 16.6, Hematocrit 47.6, Mean Corpuscular Volume 90, Mean Corpuscular Hemoglobin 31.5H, Mean Corpuscular Hemoglobin Concent 34.9, Red Cell Distribution Width 12.3, Platelet Count 138L, Mean Platelet Volume 9.1, Neutrophils (%) (Auto) 62.1, Lymphocytes (%) (Auto) 29.7, Monocytes (%) (Auto) 7.0, Eosinophils (%) (Auto) 0.1, Basophils (%) (Auto ) 1.1, Sodium Level 137, Potassium Level 3.6, Chloride Level 103, Carbon Dioxide Level 27, Anion Gap 7, Blood Urea Nitrogen 23H, Creatinine 1.0, Estimat Glomerular Filtration Rate > 60, Glucose Level 96, Calcium Level 8.6, Total Bilirubin 1.7H, Direct Bilirubin 0.5H, Aspartate Amino Transf (AST/SGOT) 53H, Alanine Aminotransferase (ALT/SGPT) 65, Alkaline Phosphatase 298H, Total Protein 7.3, Albumin 3.2L, Globulin 4.1, Albumin/Globulin Ratio 0.8L, Free Thyroxine 1.14, Free Triiodothyronine 2.3 Height (Feet): 5 Height (Inches): 8.00 Weight (Pounds): 165 General Appearance: no apparent distress, alert Neurologic: oriented x 3, responsive, depressed affect Latasha Vidal M.D. Jul 08, 2017 15:22
--- NOTE | 2017-07-08 15:59 | Infectious Diseases Prog Note ---
Assessment/Plan Assessment/Plan Assessment: B/l Cellulitis in the setting of chronic swelling/venous stasis; improving -wound cx: P. stuarti (R ancef, S Ceftriaxone), E. fecalis (correa S), CoNS ;c olonizers Afebrile Mild leukopenia/thrombocytopenia -HIV ab sc neg -hep panel p Elevated LFts; improving -HIDA scan: Negative. No evidence of cystic duct or common bile duct obstruction -Abd US: Cholelithiasis and sludge. Borderline thick walled gallbladder and some pericholecystic fluid. Possibly related to hepatocellular disease given the presence of ascites but raises the possibility of acute cholecystitis. 3.3 cm saccular distal abdominal aortic aneurysm. Questionable hepatic surface nodularity, could indicate early cirrhotic change. Bilateral renal or cortical and possible parapelvic cysts. No hydronephrosis HTN L Knee OA GERD Plan: -Continue PO Keflex 500mg qid #5/10 for cellulitis -07/06 SP Ancef #3 -07/04 SP IV Vancomycin and Cefepime #1, flagyl x1 -leg elevation and wound care -management of leg swelling is important -f/u hep panel -f/u Cx -MOnitor CBC/BMP, temperatures Thank you for this consultation. Will continue to follow along with you. Discussed with RN. Subjective Allergies: Coded Allergies: No Known Allergies (Unverified , 03/08/14) Subjective afebrile no leukocytosis bcx NTD \LFTs improving Objective Vital Signs Last 24 Hour Vital Signs Date Time Temp Pulse Resp B/P (MAP) Pulse Ox O2 Delivery O2 Flow Rate FiO2 07/08/17 07:00 79 18 Room Air 21 07/08/17 04:00 97.3 77 20 138/90 94 97.3 07/08/17 00:00 97.6 78 20 147/99 95 97.6 07/07/17 20:24 74 16 Room Air 21 07/07/17 20:00 97.2 121 20 132/94 97 97.2 07/07/17 16:00 97.3 85 20 137/89 97 97.3 Height (Feet): 5 Height (Inches): 8.00 Weight (Pounds): 165 Objective General Appearance: WD/WN Lines, tubes and drains: peripheral, dialysis access - right chest HEENT: normocephalic, atraumatic Neck: non-tender, normal alignment, supple Respiratory/Chest: no respiratory distress Cardiovascular/Chest: regular rhythm Abdomen: normal bowel sounds, non tender Genitourinary/Rectal: normal genital exam, normal rectal exam Extremities: B/l leg with edema and chronic venous stastsis changes, both legs with area of redness, warmth and mild TTP, some mild serous drainage Laboratory Tests Test 07/07/17 17:00 07/08/17 06:30 White Blood Count 4.8 K/UL (4.8-10.8) # 5.4 K/UL (4.8-10.8) Red Blood Count 5.39 M/UL (4.70-6.10) 5.28 M/UL (4.70-6.10) Hemoglobin 17.1 G/DL (14.2-18.0) 16.6 G/DL (14.2-18.0) Hematocrit 49.0 % (42.0-52.0) 47.6 % (42.0-52.0) Mean Corpuscular Volume 91 FL (80-99) 90 FL (80-99) Mean Corpuscular Hemoglobin 31.8 PG (27.0-31.0) H 31.5 PG (27.0-31.0) H Mean Corpuscular Hemoglobin Concent 35.0 G/DL (32.0-36.0) 34.9 G/DL (32.0-36.0) Red Cell Distribution Width 12.2 % (11.6-14.8) 12.3 % (11.6-14.8) Platelet Count 147 K/UL (150-450) L 138 K/UL (150-450) L Mean Platelet Volume 8.4 FL (6.5-10.1) 9.1 FL (6.5-10.1) Neutrophils (%) (Auto) 62.9 % (45.0-75.0) 62.1 % (45.0-75.0) Lymphocytes (%) (Auto) 28.7 % (20.0-45.0) 29.7 % (20.0-45.0) Monocytes (%) (Auto) 7.5 % (1.0-10.0) 7.0 % (1.0-10.0) Eosinophils (%) (Auto) 0.0 % (0.0-3.0) 0.1 % (0.0-3.0) Basophils (%) (Auto) 1.0 % (0.0-2.0) 1.1 % (0.0-2.0) Sodium Level 136 MMOL/L (136-145) 137 MMOL/L (136-145) Potassium Level 3.8 MMOL/L (3.5-5.1) 3.6 MMOL/L (3.5-5.1) Chloride Level 100 MMOL/L (98-107) 103 MMOL/L (98-107) Carbon Dioxide Level 27 MMOL/L (21-32) 27 MMOL/L (21-32) Anion Gap 9 mmol/L (5-15) 7 mmol/L (5-15) Blood Urea Nitrogen 22 mg/dL (7-18) H 23 mg/dL (7-18) H Creatinine 1.2 MG/DL (0.55-1.30) 1.0 MG/DL (0.55-1.30) Estimat Glomerular Filtration Rate > 60 mL/min (>60) > 60 mL/min (>60) Glucose Level 101 MG/DL (74-106) 96 MG/DL (74-106) Calcium Level 8.5 MG/DL (8.5-10.1) 8.6 MG/DL (8.5-10.1) Total Bilirubin 1.8 MG/DL (0.2-1.0) H 1.7 MG/DL (0.2-1.0) H Direct Bilirubin 0.7 MG/DL (0.0-0.3) H 0.5 MG/DL (0.0-0.3) H Aspartate Amino Transf (AST/SGOT) 56 U/L (15-37) H 53 U/L (15-37) H Alanine Aminotransferase (ALT/SGPT) 68 U/L (12-78) 65 U/L (12-78) Alkaline Phosphatase 312 U/L (46-116) H 298 U/L (46-116) H Total Protein 7.4 G/DL (6.4-8.2) 7.3 G/DL (6.4-8.2) Albumin 3.2 G/DL (3.4-5.0) L 3.2 G/DL (3.4-5.0) L Globulin 4.2 g/dL 4.1 g/dL Albumin/Globulin Ratio 0.8 (1.0-2.7) L 0.8 (1.0-2.7) L Alpha Fetoprotein Pending Vitamin B12 Level 548 PG/ML (193-986) Thyroid Stimulating Hormone (TSH) 4.274 uiU/mL (0.358-3.740) Hepatitis A IgM Antibody Pending Hepatitis B Surface Antigen Pending Hepatitis B Core IgM Antibody Pending Hepatitis C Antibody Pending HIV (1&2) Antibody Rapid Negative (NEGATIVE) Free Thyroxine 1.14 NG/DL (0.76-1.46) Free Triiodothyronine 2.3 pg/mL (2.3-4.2) Current Medications Medications (Trade) Dose Ordered Sig/Berna Route PRN Reason Start Time Stop Time Status Last Admin Dose Admin Acetaminophen (Tylenol) 650 mg Q4H PRN ORAL fever>100.5 07/04/17 14:30 08/03/17 14:29 Albuterol/ Ipratropium (Albuterol/ Ipratropium) 3 ml Q4H PRN HHN Shortness of Breath 07/04/17 15:00 07/09/17 14:59 Cephalexin (Keflex) 500 mg FOUR TIMES A DAY ORAL 07/06/17 13:00 07/13/17 12:59 07/08/17 13:39 Dextrose (Dextrose 50%) STAT PRN IV Hypoglycemia 07/04/17 14:30 08/03/17 14:29 Duloxetine HCl (Cymbalta) 60 mg DAILY ORAL 07/06/17 09:00 07/13/17 08:59 07/08/17 08:37 Heparin Sodium (Porcine) (Heparin 5000 units/ml) 5,000 units EVERY 12 HOURS SUBQ 07/04/17 21:00 08/03/17 20:59 07/04/17 21:49 Lorazepam (Ativan) 0.5 mg BID PRN ORAL anxiety or outburst of anger 07/04/17 14:30 07/11/17 14:29 Morphine Sulfate (Morphine Sulfate) 2 mg Q4H PRN IVP Moderate Pain (Pain Scale 4-6) 07/04/17 14:30 07/11/17 14:29 07/08/17 12:00 Nitroglycerin (Ntg) 0.4 mg Q5M PRN SL Prn Chest Pain 07/04/17 14:30 08/03/17 14:29 Ondansetron HCl (Zofran) 4 mg Q6H PRN IVP Nausea & Vomiting 07/04/17 14:30 08/03/17 14:29 Polyethylene Glycol (Miralax) 17 gm DAILYPRN PRN ORAL Constipation 07/04/17 14:00 08/03/17 13:59 Temazepam (Restoril) 15 mg HSPRN PRN ORAL Insomnia 07/04/17 21:00 07/11/17 20:59 Claudette Simpson M.D. Jul 08, 2017 15:59
[2017-07-08 16:00] VITALS: BP 115/81
[2017-07-08 20:00] VITALS: BP 121/75
[2017-07-09] VITALS: BP 126/73
--- NOTE | 2017-07-09 00:11 | General Progress Note ---
Assessment/Plan Assessment/Plan 1. Pancytopenia, potentially this is secondary to either myelosuppression, either alcohol use, or other cause. --> Anemia workup reviewed. HIV panel negative. Hepatitis pending. --> S/P Abdomen ultrasound revealed: Trace ascites. Cholelithiasis and sludge. Borderline thick walled gallbladder and some pericholecystic fluid. Possibly related to hepatocellular disease --> Wbc and platelet levels improved from yesterday. --> Hemoglobin and wbc count within normal levels. Platelets improved. 2. Deep vein thrombosis history in the past, currently resolved. Most recent duplex reviewed. --> Over the past three studies, most recent duplexes have all been negative. --> On anticoagulation as needed. 3. Cellulitis of bilateral lower extremity, is on antibiotics as per ID Service , Dr. Mosley and Dr. Wilkins. 4. Left knee osteoarthritis. Continue to closely monitor. --> On pain control. 5. Hypertension. Systolic blood pressure goal less than 130. 6. Gastroesophageal reflux disease. Continue antacids as needed. Subjective Date patient seen: Jul 08, 2017 Constitutional: Denies: no symptoms, chills, diaphoresis, fever, malaise, weakness, other HEENT: Denies: no symptoms, eye pain, blurred vision, tearing, double vision, ear pain, ear discharge, nose pain, nose congestion, throat pain, throat swelling, mouth pain, mouth swelling, other Cardiovascular: Denies: no symptoms, chest pain, edema, irregular heart rate, lightheadedness, palpitations, syncope, other Respiratory: Denies: no symptoms, cough, orthopnea, shortness of breath, SOB with excertion, SOB at rest, sputum, stridor, wheezing, other Gastrointestinal/Abdominal: Denies: no symptoms, abdomen distended, abdominal pain, black stools, tarry stools, blood in stool, constipated, diarrhea, difficulty swallowing, nausea, poor appetite, poor fluid intake, rectal bleeding , vomiting, other Genitourinary: Denies: no symptoms, burning, discharge, frequency, flank pain, hematuria, incontinence, pain, urgency, other Neurologic/Psychiatric: Denies: no symptoms, anxiety, depressed, emotional problems, headache, numbness, paresthesia, pre-existing deficit, seizure, tingling, tremors, weakness, other Hematologic/Lymphatic: Reports: anemia Allergies: Coded Allergies: No Known Allergies (Unverified , 03/08/14) Subjective NAD. Wbc and platelets improved. Pt wants to be discharged to SNF Objective Last 24 Hour Vital Signs Date Time Temp Pulse Resp B/P (MAP) Pulse Ox O2 Delivery O2 Flow Rate FiO2 07/08/17 20:00 97.4 86 20 121/75 95 97.4 07/08/17 16:00 97.2 100 20 115/81 94 97.2 07/08/17 07:00 79 18 Room Air 21 07/08/17 04:00 97.3 77 20 138/90 94 97.3 Intake and Output 07/08/17 07/09/17 19:00 07:00 Intake Total 480 ml Balance 480 ml Intake Oral 480 ml # Voids 2 Laboratory Tests 07/08/17 06:30: White Blood Count 5.4, Red Blood Count 5.28, Hemoglobin 16.6, Hematocrit 47.6, Mean Corpuscular Volume 90, Mean Corpuscular Hemoglobin 31.5H, Mean Corpuscular Hemoglobin Concent 34.9, Red Cell Distribution Width 12.3, Platelet Count 138L, Mean Platelet Volume 9.1, Neutrophils (%) (Auto) 62.1, Lymphocytes (%) (Auto) 29.7, Monocytes (%) (Auto) 7.0, Eosinophils (%) (Auto) 0.1, Basophils (%) (Auto ) 1.1, Sodium Level 137, Potassium Level 3.6, Chloride Level 103, Carbon Dioxide Level 27, Anion Gap 7, Blood Urea Nitrogen 23H, Creatinine 1.0, Estimat Glomerular Filtration Rate > 60, Glucose Level 96, Calcium Level 8.6, Total Bilirubin 1.7H, Direct Bilirubin 0.5H, Aspartate Amino Transf (AST/SGOT) 53H, Alanine Aminotransferase (ALT/SGPT) 65, Alkaline Phosphatase 298H, Total Protein 7.3, Albumin 3.2L, Globulin 4.1, Albumin/Globulin Ratio 0.8L, Free Thyroxine 1.14, Free Triiodothyronine 2.3 Height (Feet): 5 Height (Inches): 8.00 Weight (Pounds): 165 General Appearance: no apparent distress Abdomen: soft Edema: trace edema Truman Proctor MD Jul 09, 2017 00:10
[2017-07-09 04:00] VITALS: BP 145/88
[2017-07-09 08:00] VITALS: BP 107/67
[2017-07-09] MEDS: Cephalexin 500mg cap ORAL SCH ×2 (08:24→12:21)
[2017-07-09] MEDS: DULoxetine 30mg cap ORAL SCH (08:24)
[2017-07-09] MEDS: Heparin 5000 units/ml inj SUBQ SCH (08:24)
--- NOTE | 2017-07-09 09:26 | Pulmonology Progress Note ---
Assessment/Plan Assessment/Plan ASSESSMENT Cellulitis BLE Venous stasis DONNA vs CRI Transaminitis cholelithiasis r/o acute ashli -negative possible cirrhosis AAA 3.3 cm HTN homeless PLAN OF CARE [facility] floor abx ID follows , wound + Providencia, Enterococci, SCON Venous Duplex BLE negative elevate legs wound care as per wound nurse recs HIV screen (due to low PLT and leukopenia)-negative s/p IVF abdominal US: Cholelithiasis and sludge. Borderline thick walled gallbladder and some pericholecystic fluid. Possibly related to hepatocellular disease given the presence of ascites but raises the possibility of acute cholecystitis. Consider nuclear medicine hepatobiliary scan for further evaluation if there is high clinical suspicion 3.3 cm saccular distal abdominal aortic aneurysm Questionable hepatic surface nodularity, could indicate early cirrhotic change Bilateral renal or cortical and possible parapelvic cysts. No hydronephrosis Trend LFT - with trend down hepatitis panel negative AFP -WNL ? ETOH abuse HIDA scan -negative tolerates diet no n/v/abd pain, LFT/bili trending down GI follows for AAA- size small, accidental finding, no complains, needs periodic 6 months check with abdominal US elevated TSH with normal free T 4 and T3 PT/OT SW for placement dc plan on oral abx appealed dc to Medicare wants to go to SNF for wound care dc train planner for placement case discussed and evaluated by supervising physician Subjective Allergies: Coded Allergies: No Known Allergies (Unverified , 03/08/14) Subjective denies CP SOB no abdominal pain, afebrile no leucocytosis HIDA scan negative appealed dc to medicare, now wants to go to SNF and states he will be compliant with treatment Objective Last 24 Hour Vital Signs Date Time Temp Pulse Resp B/P (MAP) Pulse Ox O2 Delivery O2 Flow Rate FiO2 07/09/17 08:00 97.4 82 18 107/67 94 Room Air 97.4 07/09/17 04:00 97.2 80 20 145/88 96 97.2 07/09/17 00:00 97.9 82 18 126/73 96 97.9 07/08/17 20:00 97.4 86 20 121/75 95 97.4 07/08/17 19:49 82 18 Room Air 21 07/08/17 16:00 97.2 100 20 115/81 94 97.2 Intake and Output 07/08/17 07/09/17 19:00 07:00 Intake Total 480 ml Output Total 900 ml Balance 480 ml -900 ml Intake Oral 480 ml Output Urine Total 900 ml # Voids 2 Objective General Appearance: no acute distress HEENT: normocephalic, atraumatic, anicteric, mucous membranes moist Respiratory/Chest: normal breath sounds, no respiratory distress Cardiovascular: normal rate, no JVD Abdomen: soft, non tender Extremities: pedal pulses normal, +1 edema BLE with bilateral leg ulcers Neurologic/Psychiatric: alert, responsive Musculoskeletal: normal muscle bulk Current Medications Medications (Trade) Dose Ordered Sig/Berna Route PRN Reason Start Time Stop Time Status Last Admin Dose Admin Acetaminophen (Tylenol) 650 mg Q4H PRN ORAL fever>100.5 07/04/17 14:30 08/03/17 14:29 Albuterol/ Ipratropium (Albuterol/ Ipratropium) 3 ml Q4H PRN HHN Shortness of Breath 07/04/17 15:00 07/09/17 14:59 Cephalexin (Keflex) 500 mg FOUR TIMES A DAY ORAL 07/06/17 13:00 07/13/17 12:59 07/09/17 08:24 Dextrose (Dextrose 50%) STAT PRN IV Hypoglycemia 07/04/17 14:30 08/03/17 14:29 Duloxetine HCl (Cymbalta) 60 mg DAILY ORAL 07/06/17 09:00 07/13/17 08:59 07/09/17 08:24 Heparin Sodium (Porcine) (Heparin 5000 units/ml) 5,000 units EVERY 12 HOURS SUBQ 07/04/17 21:00 08/03/17 20:59 07/04/17 21:49 Lorazepam (Ativan) 0.5 mg BID PRN ORAL anxiety or outburst of anger 07/04/17 14:30 07/11/17 14:29 Morphine Sulfate (Morphine Sulfate) 2 mg Q4H PRN IVP Moderate Pain (Pain Scale 4-6) 07/04/17 14:30 07/11/17 14:29 07/08/17 12:00 Nitroglycerin (Ntg) 0.4 mg Q5M PRN SL Prn Chest Pain 07/04/17 14:30 08/03/17 14:29 Ondansetron HCl (Zofran) 4 mg Q6H PRN IVP Nausea & Vomiting 07/04/17 14:30 08/03/17 14:29 Polyethylene Glycol (Miralax) 17 gm DAILYPRN PRN ORAL Constipation 07/04/17 14:00 08/03/17 13:59 Temazepam (Restoril) 15 mg HSPRN PRN ORAL Insomnia 07/04/17 21:00 07/11/17 20:59 Jimmy ([facility])Maribel NP Jul 09, 2017 09:26
[2017-07-09] MEDS ORDERED: LORazepam 0.5mg tab ORAL PRN (09:30)
--- NOTE | 2017-07-09 09:40 | GI Progress Note ---
Assessment/Plan Problems: (1) Elevated liver function tests ICD Codes: R79.89 - Other specified abnormal findings of blood chemistry SNOMED: 946425262, 715563662 (2) Abdominal pain ICD Codes: R10.9 - Unspecified abdominal pain SNOMED: 82780241 (3) Cellulitis ICD Codes: L03.90 - Cellulitis, unspecified SNOMED: 549792220 Qualifiers: Qualified Codes: L03.119 - Cellulitis of unspecified part of limb Status: stable Status Narrative Discussed with Dr. Morillo. Assessment/Plan Assessment - abnormal GB - b/l LE skin infection - HTN - refused amlabs - HIDA negative - hep panel negative Recommendations - okay for DC per GI standpoint - follow symptoms and exam - antibiotics - tolerating diet Subjective Gastrointestinal/Abdominal: Reports: no symptoms Subjective BLE cellulitis Objective Last 24 Hour Vital Signs Date Time Temp Pulse Resp B/P (MAP) Pulse Ox O2 Delivery O2 Flow Rate FiO2 07/09/17 08:00 97.4 82 18 107/67 94 Room Air 97.4 07/09/17 07:20 89 18 Room Air 21 07/09/17 04:00 97.2 80 20 145/88 96 97.2 07/09/17 00:00 97.9 82 18 126/73 96 97.9 07/08/17 20:00 97.4 86 20 121/75 95 97.4 07/08/17 19:49 82 18 Room Air 21 07/08/17 16:00 97.2 100 20 115/81 94 97.2 Intake and Output 07/08/17 07/09/17 19:00 07:00 Intake Total 480 ml Output Total 900 ml Balance 480 ml -900 ml Intake Oral 480 ml Output Urine Total 900 ml # Voids 2 Laboratory Tests Test 07/09/17 08:50 White Blood Count Pending Red Blood Count Pending Hemoglobin Pending Hematocrit Pending Mean Corpuscular Volume Pending Mean Corpuscular Hemoglobin Pending Mean Corpuscular Hemoglobin Concent Pending Red Cell Distribution Width Pending Platelet Count Pending Mean Platelet Volume Pending Neutrophils (%) (Auto) Pending Lymphocytes (%) (Auto) Pending Monocytes (%) (Auto) Pending Eosinophils (%) (Auto) Pending Basophils (%) (Auto) Pending Sodium Level Pending Potassium Level Pending Chloride Level Pending Carbon Dioxide Level Pending Blood Urea Nitrogen Pending Creatinine Pending Estimat Glomerular Filtration Rate Pending Glucose Level Pending Calcium Level Pending Height (Feet): 5 Height (Inches): 8.00 Weight (Pounds): 165 General Appearance: WD/WN, no apparent distress, alert Cardiovascular: normal rate Respiratory/Chest: normal breath sounds, no respiratory distress Abdominal Exam: normal bowel sounds, non tender, soft Extremities: normal range of motion, non-tender Objective BLE cellulitis Isamar Sneed N.P. Jul 09, 2017 09:40
[2017-07-09 09:48] LABS: ANION GAP 9 mmol/L (5-15); BLOOD UREA NITROGEN 28 mg/dL (7-18); CALCIUM 8.3 MG/DL (8.5-10.1); CARBON DIOXIDE 26 MMOL/L (21-32); CHLORIDE 103 MMOL/L (98-107); CREATININE 1.2 MG/DL (0.55-1.30); POTASSIUM 3.6 MMOL/L (3.5-5.1); SODIUM 138 MMOL/L (136-145)
[2017-07-09 09:50] LABS: BASOPHILS % (AUTO) 0.8 % (0.0-2.0); HEMATOCRIT 45.9 % (42.0-52.0); HEMOGLOBIN 15.4 G/DL (14.2-18.0); LYMPHOCYTES % (AUTO) 30.3 % (20.0-45.0); MEAN CORPUSCULAR VOLUME 91 FL (80-99); MONOCYTES % (AUTO) 6.9 % (1.0-10.0); PLATELET COUNT 137 K/UL (150-450); RED BLOOD COUNT 5.02 M/UL (4.70-6.10); RED CELL DISTRIBUTION WIDTH 12.4 % (11.6-14.8); WHITE BLOOD COUNT 5.3 K/UL (4.8-10.8)
[2017-07-09] MEDS ORDERED: Albuterol/Ipratropium 3ml neb HHN PRN (10:00)
[2017-07-09] MEDS ORDERED: Morphine Sulfate 2mg/ml Inj IVP PRN (10:30)
[2017-07-09 12:00] VITALS: BP 132/77
--- NOTE | 2017-07-09 13:10 | Infectious Diseases Prog Note ---
Assessment/Plan Assessment/Plan Assessment: B/l Cellulitis in the setting of chronic swelling/venous stasis; improving -wound cx: P. stuarti (R ancef, S Ceftriaxone), E. fecalis (correa S), CoNS ;c olonizers -bcx neg Afebrile Mild leukopenia/thrombocytopenia -HIV ab sc neg -acute hep panel neg Elevated LFts; improving -HIDA scan: Negative. No evidence of cystic duct or common bile duct obstruction -Abd US: Cholelithiasis and sludge. Borderline thick walled gallbladder and some pericholecystic fluid. Possibly related to hepatocellular disease given the presence of ascites but raises the possibility of acute cholecystitis. 3.3 cm saccular distal abdominal aortic aneurysm. Questionable hepatic surface nodularity, could indicate early cirrhotic change. Bilateral renal or cortical and possible parapelvic cysts. No hydronephrosis HTN L Knee OA GERD Plan: -Continue PO Keflex 500mg qid #6/10 for cellulitis -07/06 SP Ancef #3 -07/04 SP IV Vancomycin and Cefepime #1, flagyl x1 -leg elevation and wound care -management of leg swelling is important -MOnitor CBC/BMP, temperatures Thank you for this consultation. Will continue to follow along with you. Discussed with RN. Subjective Allergies: Coded Allergies: No Known Allergies (Unverified , 03/08/14) Subjective afebrile no leukocytosis bcx Neg pending discharge Objective Vital Signs Last 24 Hour Vital Signs Date Time Temp Pulse Resp B/P (MAP) Pulse Ox O2 Delivery O2 Flow Rate FiO2 07/09/17 08:00 97.4 82 18 107/67 94 Room Air 97.4 07/09/17 07:20 89 18 Room Air 21 07/09/17 04:00 97.2 80 20 145/88 96 97.2 07/09/17 00:00 97.9 82 18 126/73 96 97.9 07/08/17 20:00 97.4 86 20 121/75 95 97.4 07/08/17 19:49 82 18 Room Air 21 07/08/17 16:00 97.2 100 20 115/81 94 97.2 Height (Feet): 5 Height (Inches): 8.00 Weight (Pounds): 165 Objective General Appearance: WD/WN Lines, tubes and drains: peripheral, dialysis access - right chest HEENT: normocephalic, atraumatic Neck: non-tender, normal alignment, supple Respiratory/Chest: no respiratory distress Cardiovascular/Chest: regular rhythm Abdomen: normal bowel sounds, non tender Genitourinary/Rectal: normal genital exam, normal rectal exam Extremities: B/l leg with edema and chronic venous stastsis changes, both legs with area of redness, warmth and mild TTP, some mild serous drainage; cellulitis improving Laboratory Tests Test 07/09/17 08:50 White Blood Count 5.3 K/UL (4.8-10.8) Red Blood Count 5.02 M/UL (4.70-6.10) Hemoglobin 15.4 G/DL (14.2-18.0) Hematocrit 45.9 % (42.0-52.0) Mean Corpuscular Volume 91 FL (80-99) Mean Corpuscular Hemoglobin 30.7 PG (27.0-31.0) Mean Corpuscular Hemoglobin Concent 33.6 G/DL (32.0-36.0) Red Cell Distribution Width 12.4 % (11.6-14.8) Platelet Count 137 K/UL (150-450) L Mean Platelet Volume 9.6 FL (6.5-10.1) Neutrophils (%) (Auto) 62.0 % (45.0-75.0) Lymphocytes (%) (Auto) 30.3 % (20.0-45.0) Monocytes (%) (Auto) 6.9 % (1.0-10.0) Eosinophils (%) (Auto) 0.0 % (0.0-3.0) Basophils (%) (Auto) 0.8 % (0.0-2.0) Sodium Level 138 MMOL/L (136-145) Potassium Level 3.6 MMOL/L (3.5-5.1) Chloride Level 103 MMOL/L (98-107) Carbon Dioxide Level 26 MMOL/L (21-32) Anion Gap 9 mmol/L (5-15) Blood Urea Nitrogen 28 mg/dL (7-18) H Creatinine 1.2 MG/DL (0.55-1.30) Estimat Glomerular Filtration Rate > 60 mL/min (>60) Glucose Level 124 MG/DL (74-106) H Calcium Level 8.3 MG/DL (8.5-10.1) L Current Medications Medications (Trade) Dose Ordered Sig/Berna Route PRN Reason Start Time Stop Time Status Last Admin Dose Admin Acetaminophen (Tylenol) 650 mg Q4H PRN ORAL fever>100.5 07/04/17 14:30 08/03/17 14:29 Albuterol/ Ipratropium (Albuterol/ Ipratropium) 3 ml Q4H PRN HHN Shortness of Breath 07/09/17 10:00 07/14/17 09:59 Cephalexin (Keflex) 500 mg FOUR TIMES A DAY ORAL 07/06/17 13:00 07/13/17 12:59 07/09/17 12:21 Dextrose (Dextrose 50%) STAT PRN IV Hypoglycemia 07/04/17 14:30 08/03/17 14:29 Duloxetine HCl (Cymbalta) 60 mg DAILY ORAL 07/06/17 09:00 07/13/17 08:59 07/09/17 08:24 Heparin Sodium (Porcine) (Heparin 5000 units/ml) 5,000 units EVERY 12 HOURS SUBQ 07/04/17 21:00 08/03/17 20:59 07/04/17 21:49 Lorazepam (Ativan) 0.5 mg BIDPRN PRN ORAL anxiety or outburst of anger 07/09/17 09:30 07/16/17 09:29 Morphine Sulfate (Morphine Sulfate) 1 mg Q4H PRN IVP Moderate Pain (Pain Scale 4-6) 07/09/17 10:30 07/11/17 14:29 Nitroglycerin (Ntg) 0.4 mg Q5M PRN SL Prn Chest Pain 07/04/17 14:30 08/03/17 14:29 Ondansetron HCl (Zofran) 4 mg Q6H PRN IVP Nausea & Vomiting 07/04/17 14:30 08/03/17 14:29 Polyethylene Glycol (Miralax) 17 gm DAILYPRN PRN ORAL Constipation 07/04/17 14:00 08/03/17 13:59 Temazepam (Restoril) 15 mg HSPRN PRN ORAL Insomnia 07/09/17 21:00 07/16/17 20:59 Claudette Simpson M.D. Jul 09, 2017 13:10
--- NOTE | 2017-07-09 13:20 | General Progress Note ---
Assessment/Plan Assessment/Plan mdd anxiety cont Cymbalta the pt is not at imminent dts/dto Subjective Date patient seen: Jul 09, 2017 Neurologic/Psychiatric: Reports: anxiety, depressed, emotional problems Allergies: Coded Allergies: No Known Allergies (Unverified , 03/08/14) Objective Last 24 Hour Vital Signs Date Time Temp Pulse Resp B/P (MAP) Pulse Ox O2 Delivery O2 Flow Rate FiO2 07/09/17 08:00 97.4 82 18 107/67 94 Room Air 97.4 07/09/17 07:20 89 18 Room Air 21 07/09/17 04:00 97.2 80 20 145/88 96 97.2 07/09/17 00:00 97.9 82 18 126/73 96 97.9 07/08/17 20:00 97.4 86 20 121/75 95 97.4 07/08/17 19:49 82 18 Room Air 21 07/08/17 16:00 97.2 100 20 115/81 94 97.2 Intake and Output 07/08/17 07/09/17 19:00 07:00 Intake Total 480 ml Output Total 900 ml Balance 480 ml -900 ml Intake Oral 480 ml Output Urine Total 900 ml # Voids 2 Laboratory Tests 07/09/17 08:50: White Blood Count 5.3, Red Blood Count 5.02, Hemoglobin 15.4, Hematocrit 45.9, Mean Corpuscular Volume 91, Mean Corpuscular Hemoglobin 30.7, Mean Corpuscular Hemoglobin Concent 33.6, Red Cell Distribution Width 12.4, Platelet Count 137L, Mean Platelet Volume 9.6, Neutrophils (%) (Auto) 62.0, Lymphocytes (%) (Auto) 30.3, Monocytes (%) (Auto) 6.9, Eosinophils (%) (Auto) 0.0, Basophils (%) (Auto ) 0.8, Sodium Level 138, Potassium Level 3.6, Chloride Level 103, Carbon Dioxide Level 26, Anion Gap 9, Blood Urea Nitrogen 28H, Creatinine 1.2, Estimat Glomerular Filtration Rate > 60, Glucose Level 124H, Calcium Level 8.3L Height (Feet): 5 Height (Inches): 8.00 Weight (Pounds): 165 General Appearance: no apparent distress, alert Neurologic: depressed affect Latasha Vidal M.D. Jul 09, 2017 13:20
--- NOTE | 2017-07-10 22:56 | General Progress Note ---
Assessment/Plan Assessment/Plan 1. Pancytopenia, potentially this is secondary to either myelosuppression, either alcohol use, or other cause. --> Anemia workup reviewed. HIV panel negative. Hepatitis pending. --> S/P Abdomen ultrasound revealed: Trace ascites. Cholelithiasis and sludge. Borderline thick walled gallbladder and some pericholecystic fluid. Possibly related to hepatocellular disease --> Wbc and platelet levels improved from yesterday. --> Hemoglobin and wbc count within normal levels. Platelets improved. 2. Deep vein thrombosis history in the past, currently resolved. Most recent duplex reviewed. --> Over the past three studies, most recent duplexes have all been negative. --> On anticoagulation as needed. 3. Cellulitis of bilateral lower extremity, is on antibiotics as per ID Service , Dr. Mosley and Dr. Wilkins. 4. Left knee osteoarthritis. Continue to closely monitor. --> On pain control. 5. Hypertension. Systolic blood pressure goal less than 130. 6. Gastroesophageal reflux disease. Continue antacids as needed. Subjective Date patient seen: Jul 09, 2017 Constitutional: Denies: no symptoms, chills, diaphoresis, fever, malaise, weakness, other HEENT: Denies: no symptoms, eye pain, blurred vision, tearing, double vision, ear pain, ear discharge, nose pain, nose congestion, throat pain, throat swelling, mouth pain, mouth swelling, other Cardiovascular: Denies: no symptoms, chest pain, edema, irregular heart rate, lightheadedness, palpitations, syncope, other Respiratory: Denies: no symptoms, cough, orthopnea, shortness of breath, SOB with excertion, SOB at rest, sputum, stridor, wheezing, other Gastrointestinal/Abdominal: Denies: no symptoms, abdomen distended, abdominal pain, black stools, tarry stools, blood in stool, constipated, diarrhea, difficulty swallowing, nausea, poor appetite, poor fluid intake, rectal bleeding , vomiting, other Genitourinary: Denies: no symptoms, burning, discharge, frequency, flank pain, hematuria, incontinence, pain, urgency, other Neurologic/Psychiatric: Denies: no symptoms, anxiety, depressed, emotional problems, headache, numbness, paresthesia, pre-existing deficit, seizure, tingling, tremors, weakness, other Hematologic/Lymphatic: Reports: anemia Allergies: Coded Allergies: No Known Allergies (Unverified , 03/08/14) Subjective Pending discharge. Wound care done. H/H stable. Objective Height (Feet): 5 Height (Inches): 8.00 Weight (Pounds): 165 General Appearance: no apparent distress Respiratory/Chest: decreased breath sounds Abdomen: soft Truman Proctor MD Jul 10, 2017 22:56
--- NOTE | 2017-07-11 13:17 | Discharge Summary ---
Discharge Summary Discharge Summary Discharge Summary DATE OF ADMISSION: 07/04/2012 DATE OF DISCHARGE: 07/09/2017 CONSULTANTS: 1. Dr. Latasha Vidal 2. Dr. Truman Proctor 3. Dr. Claudette Simpson BRIEF HOSPITAL COURSE: Patient is a 67-year-old male who presented to ED for complaints of worsening wounds/infection in both legs. He has history of cellulitis in the past. He complained of pus coming out from the wounds. He had severe pain however denied fever or chills. He was recently seen at [facility] wounds were redressed. He continued to have 10 over 10 pain, pain was constant and worse with standing. He denied chest pain, cough, nausea, dysuria. He had loose stools and had weakness. He has past medical history significant for left knee osteoarthritis and GERD. On evaluation at ED, blood work did not show any leukocytosis. . Electrolytes were stable his creatinine was elevated to 1.6. Lactic acid was 1.2. Urinalysis with 5-10 WBC, 2-4 RBC, and negative leukocyte esterase, negative nitrite. He had an EKG done that showed normal sinus rhythm with no acute changes. Chest x-ray done showed no cardiomegaly, no effusion, no pneumothorax. Right chest pacemaker was noted. He was noted to have elevated LFTs. AST 93, ALD 59, alkaline phosphatase 203. He was admitted for cellulitis of lower extremity, for evaluation of elevated LFTs, for renal insufficiency and possible urinary tract infection. She was initially started on IV cefepime and vancomycin. She was seen by Dr. Claudette Simpson, she was given and IV Ancef. She was followed by Dr. Proctor for evaluation of pancytopenia. He underwent GI evaluation with Dr. Morillo. Hepatitis panel was negative, HIV screening was negative. He underwent abdominal ultrasound that showed trace ascites and borderline thick-walled gallbladder. Spleen was unremarkable. There was questionable hepatic service nodularity. Given presence of ascites and possible related hepatocellular disease, there is possibility of acute cholecystitis. HIDA scan was done and results were negative. No evidence of cystic duct or common bile duct obstruction. Patient underwent psychiatric evaluation. He was diagnosed with major depressive disorder and anxiety, he was eventually started on Cymbalta. Wound culture showed growth of Providencia stuartii, enterococcus, and coagulase -negative staph. He received 3 days of IV Ancef and was eventually transitioned to p.o. Keflex. He was cleared for discharge to care home facility. FINAL DIAGNOSES: 1. Cellulitis both lower extremity. 2. Venous stasis. 3. Acute kidney injury. 4. Elevated liver transaminases. 5. Cholelithiasis. 6. Possible cirrhosis. 7. Hypertension. 8. Abdominal aortic aneurysm 3.3 cm. 9. Pancytopenia. 10. Major depressive disorder. 11. Anxiety. 12. Left knee osteoarthritis. DISPOSITION: [facility]. DISCHARGE MEDICATIONS: Refer to Discharge Medication List. Continue with cephalexin 500 mg Every 6 Hours for 5 More Days. I have been assigned to dictate discharge summary on this account, and I was not involved in the patient's management. Yesenia Falcon NP Jul 11, 2017 13:17
== END 2017-07-09 18:10 | DRG 603 ==
LOC: EMR 07-04 00:33 → 4E 07-04 02:50 → EDBEDREQ 07-04 06:06 → 4E 07-04 08:35
DX: L03.116 Cellulitis of left lower limb (principal); N17.9 Acute kidney failure, unspecified; D61.818 Other pancytopenia; K74.60 Unspecified cirrhosis of liver; L03.115 Cellulitis of right lower limb; Z86.718 Personal history of other venous thrombosis and embolism; M17.12 Unilateral primary osteoarthritis, left knee; I10 Essential (primary) hypertension; K21.9 Gastro-esophageal reflux disease without esophagitis; K80.20 Calculus of gallbladder without cholecystitis without obstruction; I87.8 Other specified disorders of veins; I71.4 Abdominal aortic aneurysm, without rupture; F32.9 Major depressive disorder, single episode, unspecified; F41.9 Anxiety disorder, unspecified; Z59.0 Homelessness; R79.89 Other specified abnormal findings of blood chemistry
CPT/HCPCS: 36415; 71045; 76700; 78266; 80048; 80053; 81003; 82105; 82248; 82550; 82607; 83605; 83880; 84439; 84443; 84481; 84484; 85007; 85025; 85610; 85730; 86703; 86705; 86709; 86803; 87040; 87070; 87081; 87181; 87205; 87340; 93005; 93970; 94664; 99285